=== PATIENT | female | born 1945 | race Caucasian/White ===

== ENCOUNTER 2016-11-09 15:02 | Emergency (ER) | payer BC, MEDICARE, OTHER ==
[~2016-11-09] VITALS: Ht 157.5 cm; Wt 60.0 kg
[2016-11-09 15:05] VITALS: TEMP 36.7; Ht 157.5 cm; Wt 60.0 kg
[2016-11-09 15:32] LABS: BASO % 0.1 %; BASO ABS # 0.01 K/uL (0-0.2); COMPLETE YES; EOS % 0.6 %; HEMATOCRIT 43.6 % (37-47); IG% 0.3 %; LYMPH % 20.9 %; MEAN CELL VOLUME 89.2 fL (80-100); MEAN CORPUSCULAR HEMOGLOBIN 29.9 pg (25-34); MEAN CORPUSCULAR HGB CONC 33.5 g/dl (32-36); MEAN PLATELET VOLUME 10.4 fL (7.4-10.4); MONO % 6.6 %; NEUT % 71.5 %; PLATELET COUNT 263 K/uL (130-400); RED BLOOD COUNT 4.89 M/uL (4.2-5.4); WHITE BLOOD COUNT 7.16 K/uL (4.8-10.8)
--- NOTE | 2016-11-09 15:33 | EMERGENCY ROOM VISIT NOTE ---
History Report prepared by Desmond: Gregorio Anand Under the Supervision of: Dr. Wen Muñiz M.D. First contact with patient: 15:19 Chief Complaint: URINARY SYMPTOMS Stated Complaint: UTI Nursing Triage Summary: triage note:pt reports hurting in the groin/vaginal area c/o pain in mouth. states she is haulcinating symptoms for three weeks History of Present Illness The patient is a 71 year old female who presents to the Emergency Room with complaints of persistent urinary tract infection symptoms that started a few weeks ago. She was recently hospitalized in a [facility] for 9 days for this. The patient was experiencing vaginal itching, weakness, and burning urination. The burning urination has since been resolved. Per the patient's , the patient was first put on Bactrim, but the patient started to have visual hallucinations. The patient says she would see a person and also see a rat coming to and from her bedroom. She was then put on a second antibiotic ( Cipro), but it has not been helping. The patient still has these hallucinations. She is not diabetic. The patient's daily medications include Fentanyl, Neurontin, and Oxycodone. She has chronic back pain and knee problems. Source of History: patient, spouse/significant other Onset: A few weeks ago Position: other (global - UTI symptoms) Timing: other (persistent) Associated Symptoms: + weakness Note: Associated symptoms: Vaginal itching, hallucinations. Review of Systems See HPI for pertinent positives & negatives. A total of 10 systems reviewed and were otherwise negative. Past Medical & Surgical Medical Problems: (1) Back pain (2) HTN (hypertension) Surgical Problems: (1) History of knee replacement Family History Hypertension Social History Smoking Status: Never Smoker Alcohol Use: none Marital Status: Housing Status: lives with family Occupation Status: employed Current/Historical Medications Scheduled Alprazolam (Xanax), 1 MG PO QID Calcium Carbonate-Vitamin D W/ (Caltrate 600 Plus), 1 TAB PO BID Fentanyl (Fentanyl), 100 MCG TOP [id number] Ferrous Sulfate (Ferrous Sulfate), 1 TAB PO TID Gabapentin (Neurontin), 600 MG PO TID Krill Oil (Krill Oil), 1 CAP PO DAILY Multivitamins/Minerals (Mvi With Minerals), 1 TAB PO DAILY Simvastatin (Zocor), 40 MG PO QPM Venlafaxine Hcl (Effexor Xr), 1 CAP PO TID Verapamil Sust Rel (Calan Sr Ext Rel), 240 MG PO DAILY Scheduled PRN Docusate Sodium (Colace), 1 CAP PO TID PRN for Constipation Oxycodone/Acetaminophen 5MG/325MG (Percocet 5MG/325MG), 1 TABLET PO QID PRN for Pain Allergies Coded Allergies: Penicillins (Verified Allergy, Intermediate, 11/20/09) RASH Ampicillin (Verified Allergy, Unknown, RASH, 11/09/16) Physical Exam Vital Signs Date Time Temp Pulse Resp B/P Pulse Ox O2 Delivery O2 Flow Rate FiO2 11/09/16 18:35 66 18 133/63 93 Room Air 11/09/16 16:59 67 16 124/82 94 Room Air 11/09/16 15:05 36.7 77 18 119/86 96 Room Air Physical Exam CONSTITUTIONAL: No acute distress. HEENT: No icterus, moist mucous membranes NECK: No meningismus, trachea is midline. CARDIOVASCULAR: Regular rate, normal perfusion RESPIRATORY: Unlabored breathing. Clear to auscultation. GASTROINTESTINAL: Non-tender GENITOURINARY: No flank tenderness MUSCULOSKELETAL: Full range of motion NEUROLOGIC: No acute gross focal deficits. PSYCHIATRIC: Normal affect SKIN: Normal for ethnicity. Medical Decision & Procedures ER Provider Diagnostic Interpretation: CT results as stated below per my review and radiologist interpretation. CT OF THE HEAD WITH AND WITHOUT CONTRAST CT DOSE: 1572.52 mGy.cm CLINICAL HISTORY: Visual hallucinations. TECHNIQUE: Axial images of the head were obtained before and after intravenous administration of 90 cc of Optiray 320 IV. COMPARISON STUDY: None. FINDINGS: No acute intracranial hemorrhage, midline shift or mass effect is present. Ventricular system is unremarkable for age. The basilar cisterns are patent. There are no extra-axial collections. White matter hypodensities suggest small vessel disease. There are no findings to suggest acute dural sinus thrombosis or acute territorial infarct. No intracranial mass or pathologic enhancement is present. There are no significant calvarial abnormalities. Visualized portions of the sinuses and mastoid air cells are clear. IMPRESSION: 1. No acute intracranial findings. 2. No intracranial masses or pathologic enhancement. Electronically signed by: Micheal Zazueta M.D. 11/09/2016 4:56 PM Dictated Date/Time: 11/09/2016 4:51 PM Laboratory Results 11/09/16 15:23 Red Blood Count 4.89, Mean Corpuscular Volume 89.2, Mean Corpuscular Hemoglobin 29.9, Mean Corpuscular Hemoglobin Concent 33.5, Mean Platelet Volume 10.4, Neutrophils (%) (Auto) 71.5, Lymphocytes (%) (Auto) 20.9, Monocytes (%) (Auto) 6.6, Eosinophils (%) (Auto) 0.6, Basophils (%) (Auto) 0.1, Neutrophils # (Auto) 5.12, Lymphocytes # (Auto) 1.50, Monocytes # (Auto) 0.47, Eosinophils # (Auto) 0.04, Basophils # (Auto) 0.01 11/09/16 15:23 Test 11/09/16 15:23 11/09/16 16:23 White Blood Count 7.16 K/uL (4.8-10.8) Red Blood Count 4.89 M/uL (4.2-5.4) Hemoglobin 14.6 g/dL (12.0-16.0) Hematocrit 43.6 % (37-47) Mean Corpuscular Volume 89.2 fL (80-100) Mean Corpuscular Hemoglobin 29.9 pg (25-34) Mean Corpuscular Hemoglobin Concent 33.5 g/dl (32-36) Platelet Count 263 K/uL (130-400) Mean Platelet Volume 10.4 fL (7.4-10.4) Neutrophils (%) (Auto) 71.5 % Lymphocytes (%) (Auto) 20.9 % Monocytes (%) (Auto) 6.6 % Eosinophils (%) (Auto) 0.6 % Basophils (%) (Auto) 0.1 % Neutrophils # (Auto) 5.12 K/uL (1.4-6.5) Lymphocytes # (Auto) 1.50 K/uL (1.2-3.4) Monocytes # (Auto) 0.47 K/uL (0.11-0.59) Eosinophils # (Auto) 0.04 K/uL (0-0.5) Basophils # (Auto) 0.01 K/uL (0-0.2) RDW Standard Deviation 41.7 fL (36.4-46.3) RDW Coefficient of Variation 12.8 % (11.5-14.5) Immature Granulocyte % (Auto) 0.3 % Immature Granulocyte # (Auto) 0.02 K/uL (0.00-0.02) Anion Gap 10.0 mmol/L (3-11) Est Creatinine Clear Calc Drug Dose 52.2 ml/min Estimated GFR () 90.2 Estimated GFR (Non- 77.8 BUN/Creatinine Ratio 23.3 (10-20) Calcium Level 8.8 mg/dl (8.5-10.1) Urine Color DK YELLOW Urine Appearance CLEAR (CLEAR) Urine pH 7.5 (4.5-7.5) Urine Specific [place] 1.024 (1.000-1.030) Urine Protein NEG (NEG) Urine Glucose (UA) NEG (NEG) Urine Ketones 1+ (NEG) Urine Occult Blood NEG (NEG) Urine Nitrite NEG (NEG) Urine Bilirubin NEG (NEG) Urine Urobilinogen NEG (NEG) Urine Leukocyte Esterase TRACE (NEG) Urine WBC (Auto) 1-5 /hpf (0-5) Urine RBC (Auto) 0-4 /hpf (0-4) Urine Hyaline Casts (Auto) 1-5 /lpf (0-5) Urine Epithelial Cells (Auto) 20-30 /lpf (0-5) Urine Bacteria (Auto) NEG (NEG) Urine Opiates Screen NEG (NEG) Urine Methadone, Qualitative NEG (NEG) Urine Barbiturates NEG (NEG) Urine Phencyclidine (PCP) Level NEG (NEG) Ur Amphetamine/Methamphetamine NEG (NEG) MDMA (Ecstasy) Screen NEG (NEG) Urine Benzodiazepines Screen POS (NEG) Urine Cocaine Metabolite NEG (NEG) Urine Marijuana (THC) NEG (NEG) Labs reviewed by ED physician. ED Course 1521: Past medical records reviewed. The patient was evaluated in room C3. A complete history and physical examination was performed. 1840: I reevaluated the patient and she is resting comfortably. The patient verbally expressed agreement and understanding of the treatment plan. The patient will be discharged. Medical Decision Differential diagnoses include: UTI, intracranial abnormality, lesion. 71-year-old presents with her for evaluation generalized worsening weakness and a report of a visual hallucinations seeing a man that does not exist. She is alert oriented and appropriate without neurologic complaints at this time. She states she's been treated for multiple UTIs in the past several weeks although her urine sample to date on appeared to show infection. CT of her head including IV contrast was negative for pathology. Patient's primary care office was closed in a could not arrange follow-up. Patient and in agreement with discharge at this time. He declined case management facilitation of outpatient appointment. They'll follow up on their own. Impression Primary Impression: Weakness Scribe Attestation The scribe's documentation has been prepared under my direction and personally reviewed by me in its entirety. I confirm that the note above accurately reflects all work, treatment, procedures, and medical decision making performed by me. Departure Information Dispostion Home / Self-Care Referrals Lesvia Toure M.D. (PCP) Forms HOME CARE DOCUMENTATION FORM, IMPORTANT VISIT INFORMATION Patient Instructions My [facility]
[2016-11-09] MEDS ORDERED: OPTIRAY 320 IV PRN (15:45)
[2016-11-09 15:51] LABS: BUN/CREATININE RATIO 23.3 (10-20); CALCIUM 8.8 mg/dl (8.5-10.1); CREATININE 0.76 mg/dl (0.60-1.20); POTASSIUM 4.1 mmol/L (3.5-5.1)
[2016-11-09] MEDS ORDERED: VENL75CA PO (16:19)
--- NOTE | 2016-11-09 16:58 | DIAGNOSTIC IMAGING REPORT ---
CT OF THE HEAD WITH AND WITHOUT CONTRAST CT DOSE: 1572.52 mGy.cm CLINICAL HISTORY: Visual hallucinations. TECHNIQUE: Axial images of the head were obtained before and after intravenous administration of 90 cc of Optiray 320 IV. COMPARISON STUDY: None. FINDINGS: No acute intracranial hemorrhage, midline shift or mass effect is present. Ventricular system is unremarkable for age. The basilar cisterns are patent. There are no extra-axial collections. White matter hypodensities suggest small vessel disease. There are no findings to suggest acute dural sinus thrombosis or acute territorial infarct. No intracranial mass or pathologic enhancement is present. There are no significant calvarial abnormalities. Visualized portions of the sinuses and mastoid air cells are clear. IMPRESSION: 1. No acute intracranial findings. 2. No intracranial masses or pathologic enhancement. Electronically signed by: Micheal Zazueta M.D. 11/09/2016 4:56 PM Dictated Date/Time: 11/09/2016 4:51 PM
[2016-11-09 17:00] LABS: URINE APPEARANCE CLEAR (CLEAR); URINE BILIRUBIN NEG (NEG); URINE COLOR DK YELLOW; URINE EPITHELIAL CELL AUTO 20-30 /lpf (0-5); URINE NITRITE NEG (NEG); URINE PH 7.5 (4.5-7.5); URINE SPECIFIC GRAVITY 1.024 (1.000-1.030); UROBILINOGEN NEG (NEG); ZZUR CULT IF INDIC CLEAN CATCH NO
[2016-11-09 17:14] LABS: MANUAL MICROSCOPIC REQUIRED? NO; REVIEW REQ? NO
[2016-11-09 17:46] LABS: BENZODIAZEPINE, URINE POS (NEG); COCAINE,URINE NEG (NEG); PHENCYCLIDINE, URINE NEG (NEG)
[2016-11-09 18:35] VITALS: BP 133/63; PULSE 66; O2SAT 93
[2016-11-14 13:21] LABS: HYDROXYETHYLFLURAZEPAM CONF NEGATIVE NG/ML (CUTOFF=50); HYDROXYMIDAZOLAM NEGATIVE NG/ML (CUTOFF=50); HYDROXYTRIAZOLAM CONF NEGATIVE NG/ML (CUTOFF=50); TEMAZEPAM CONF NEGATIVE NG/ML (CUTOFF=50)
== END 2016-11-09 18:45 | disposition home or self-care (01) ==
LOC: C.EDB 15:04 → C.EDC 18:45
DX: R53.1 Weakness (principal); G89.29 Other chronic pain; M54.9 Dorsalgia, unspecified; I10 Essential (primary) hypertension; Z96.659 Presence of unspecified artificial knee joint; Z82.49 Family history of ischemic heart disease and other diseases of the circulatory system; Z79.899 Other long term (current) drug therapy

== ENCOUNTER 2016-11-17 13:05 | Emergency (ER) | payer MEDICARE ==
[~2016-11-17] VITALS: Ht 157.5 cm; Wt 45.6 kg
[~2016-11-17 13:05] MED LIST: VENL75CA PO
[2016-11-17 13:10] VITALS: TEMP 37.1; Ht 157.5 cm; Wt 45.6 kg
[2016-11-17] MEDS ORDERED: SODIUM CHLORIDE 0.9% 1000ML 1,000 ML IV STA (13:41)
[2016-11-17] MEDS ORDERED: NYSTATIN SUSP 500,000 U/5 ML UDC PO STA (14:01)
[2016-11-17] MEDS ORDERED: CIPR1TAB11 PO (14:04)
--- NOTE | 2016-11-17 14:06 | DIAGNOSTIC IMAGING REPORT ---
SINGLE VIEW CHEST CLINICAL HISTORY: Fever. Sepsis. FINDINGS: An AP, portable, upright chest radiograph is obtained. No prior studies are available for comparison at the time of dictation. The heart is top normal for projection. There is consolidation and atelectasis seen at the right lung base. Central lucency may represent aerated lung less likely cavitation. Small pleural effusions are suspected. The right upper lobe and the left lung appear clear. No pneumothorax is seen. The skeletal structures are osteopenic. There is an age indeterminant right ninth rib fracture. IMPRESSION: 1. There is consolidation and significant atelectasis present at the right lung base. This may represent pneumonia but the appearance is atypical. Consider chest CT for further assessment. 2. Small pleural effusions are identified. 3. Age indeterminant right ninth rib fracture. This may be chronic. Choroid for point tenderness at this level. Electronically signed by: Bret Palmer M.D. 11/17/2016 2:05 PM Dictated Date/Time: 11/17/2016 2:02 PM
[2016-11-17 14:37] LABS: BASO % 0.1 %; BASO ABS # 0.01 K/uL (0-0.2); COMPLETE YES; EOS % 0.4 %; HEMATOCRIT 43.9 % (37-47); IG% 0.2 %; LYMPH % 17.1 %; LYMPH ABS # 1.63 K/uL (1.2-3.4); MEAN CELL VOLUME 90.3 fL (80-100); MEAN CORPUSCULAR HEMOGLOBIN 30.7 pg (25-34); MEAN CORPUSCULAR HGB CONC 33.9 g/dl (32-36); MEAN PLATELET VOLUME 10.8 fL (7.4-10.4); MONO % 7.6 %; NEUT % 74.6 %; PLATELET COUNT 219 K/uL (130-400); RED BLOOD COUNT 4.86 M/uL (4.2-5.4); WHITE BLOOD COUNT 9.51 K/uL (4.8-10.8)
[2016-11-17 14:59] LABS: BUN/CREATININE RATIO 40.7 (10-20); CALCIUM 8.6 mg/dl (8.5-10.1); CREATININE 0.57 mg/dl (0.60-1.20); POTASSIUM 3.5 mmol/L (3.5-5.1)
[2016-11-17 15:00] LABS: URINE APPEARANCE CLEAR (CLEAR); URINE BILIRUBIN NEG (NEG); URINE COLOR YELLOW; URINE NITRITE NEG (NEG); URINE SPECIFIC GRAVITY 1.018 (1.000-1.030); UROBILINOGEN NEG (NEG); ZZURINE CULT IF INDIC CATH NO
[2016-11-17 15:05] LABS: CKMB/CK RATIO 4.9 (0-3.0)
[2016-11-17 15:05] LABS: MANUAL MICROSCOPIC REQUIRED? NO; REVIEW REQ? NO
--- NOTE | 2016-11-17 15:33 | DIAGNOSTIC IMAGING REPORT ---
CT SCAN OF THE CHEST WITHOUT IV CONTRAST CLINICAL HISTORY: Abnormal chest x-ray. Right lower lobe consolidation. COMPARISON STUDY: Chest radiograph dated 11/17/16. TECHNIQUE: CT scan of the thorax was performed from the thoracic inlet to the upper abdomen. Images are reviewed in the axial, sagittal, and coronal planes. IV contrast was not administered for this examination as per the referring clinician. CT DOSE: 197.13 mGycm FINDINGS: Thyroid: Imaged portions of the thyroid gland are normal in size and attenuation. Thoracic aorta: There is mild atherosclerotic calcification of the thoracic aorta, which is normal in caliber and demonstrates standard 3-vessel arch anatomy. Heart: The heart is mildly enlarged and without pericardial effusion. There are coronary artery calcifications. The pulmonary trunk is dilated, measuring up to 4.4 cm in diameter. This suggests pulmonary artery hypertension. Lungs and pleural spaces: There is a large hiatal hernia, which contains the majority of the stomach as well as a portion of the right colon. This causes near complete atelectasis of the right lower lobe. There is no airspace consolidation typical for pneumonia. Trace pleural effusions are identified. The trachea and central airways are clear. Mediastinum: There is no mediastinal lymphadenopathy. Alesia: Not well assessed without IV contrast. Axillae: There is no axillary lymphadenopathy. Upper abdomen: As noted above, a large hiatal hernia contains the majority of the stomach and a large segment of the right colon. A 1.5 cm cyst is noted in the left lobe of the liver. Cortical scarring is present in the interpolar left kidney. There is glandular atrophy of the visualized pancreas. Skeletal structures: The skeletal structures are osteopenic. Degenerative change and hyperkyphosis are noted in the thoracic spine. No lytic or blastic bony lesions are seen. Postoperative change is suggested in the spinous processes of the lower thoracic spine. There is a healed right anterior ninth rib fracture. IMPRESSION: 1. There is a large hiatal hernia which contains the majority of the stomach as well as a large segment of the right colon. This causes near complete atelectasis of the right lower lobe and this corresponds to the abnormality seen by chest x-ray. 2. There is no airspace consolidation typical for pneumonia. Trace pleural effusions are identified. 3. Cardiomegaly with evidence of pulmonary artery hypertension. 4. Additional findings as above. Electronically signed by: Bret Palmer M.D. 11/17/2016 3:32 PM Dictated Date/Time: 11/17/2016 3:26 PM
[2016-11-17] MEDS ORDERED: NYSS/ PO (16:06)
--- NOTE | 2016-11-17 16:07 | EMERGENCY ROOM VISIT NOTE ---
History Report prepared by Desmond: Mitch Marshall Under the Supervision of: Dr. Allen Vogt D.O. First contact with patient: 13:34 Chief Complaint: URINARY SYMPTOMS Stated Complaint: AMS/ FREQUENT URINATION Nursing Triage Summary: Patient arrived via EMS c/o mouth pain in lips all inside her mouth, also c/o burning in pelvic area. Hx UTI 2 weeks ago, has been taking Cipro, one pill left. Pt states she's also been having to buy pads because she's been incontinent and usually she is not incontinent. EMS reports patient speaks of living in [place] x 50 years and later in conversation does not know where [place] is located. Pt lives at home with in [place] per EMS History of Present Illness The patient is a 71 year old female who presents to the Emergency Room with complaints of persistent mouth pain beginning earlier today. She notes that her mouth is "sticking together", but that it is not necessarily dry. She also complains of burning in her pelvic area. The patient states she was here 10 days ago and diagnosed with a UTI. She has been taking Cipro and has 1 day left , but reports that it is not helping her symptoms. She admits to having diaphoresis and chills. The patient notes she has an appointment with urology in about 1 week. She does not have a catheter. She denies having any recent surgeries. Source of History: patient Onset: this morning Position: other (mouth; pelvis) Quality: burning, other (pain) Timing: other (persistent) Associated Symptoms: + chills, + diaphoresis Review of Systems See HPI for pertinent positives & negatives. A total of 10 systems reviewed and were otherwise negative. Past Medical & Surgical Medical Problems: (1) Back pain (2) HTN (hypertension) Surgical Problems: (1) History of knee replacement Family History Hypertension Social History Smoking Status: Never Smoker Alcohol Use: none Marital Status: Housing Status: lives with family Occupation Status: employed Current/Historical Medications Scheduled Alprazolam (Xanax), 1 MG PO QID Calcium Carbonate-Vitamin D W/ (Caltrate 600 Plus), 1 TAB PO BID Ciprofloxacin Tab (Cipro), Unknown Dose PO BID Fentanyl (Fentanyl), 100 MCG TOP [id number] Ferrous Sulfate (Ferrous Sulfate), 1 TAB PO TID Gabapentin (Neurontin), 600 MG PO TID Krill Oil (Krill Oil), 1 CAP PO DAILY Multivitamins/Minerals (Mvi With Minerals), 1 TAB PO DAILY Nystatin (Nystatin Suspension), 5 ML PO QID Simvastatin (Zocor), 40 MG PO QPM Venlafaxine Hcl (Effexor Xr), 150 MG PO TID Verapamil Sust Rel (Calan Sr Ext Rel), 240 MG PO DAILY Scheduled PRN Docusate Sodium (Colace), 1 CAP PO TID PRN for Constipation Oxycodone/Acetaminophen 5MG/325MG (Percocet 5MG/325MG), 1 TABLET PO QID PRN for Pain Allergies Coded Allergies: Penicillins (Verified Allergy, Intermediate, 11/17/16) RASH Ampicillin (Verified Allergy, Unknown, RASH, 11/17/16) Physical Exam Vital Signs Date Time Temp Pulse Resp B/P Pulse Ox O2 Delivery O2 Flow Rate FiO2 11/17/16 14:37 75 127/80 96 Room Air 11/17/16 14:20 74 11/17/16 14:10 75 19 124/80 91 Room Air 11/17/16 13:10 37.1 78 20 114/82 95 Room Air Physical Exam CONSTITUTIONAL/VITAL SIGNS: Reviewed / noted above. GENERAL: Non-toxic in appearance. INTEGUMENTARY: Warm, dry, and [place]. HEAD: Normocephalic. EYES: without scleral icterus or trauma. ENT/OROPHARYNX: clear and moist. LYMPHADENOPATHY/NECK: Is supple without lymphadenopathy or meningismus. RESPIRATORY: Lungs clear and equal. CARDIOVASCULAR: Regular rate and rhythm. GI/ABDOMEN: Soft and nontender. No organomegaly or pulsatile mass. No rebound or guarding. Normal bowel sounds. EXTREMITIES: Warm and well perfused. BACK: No CVA tenderness. NEUROLOGICAL: Intact without focal deficits. PSYCHIATRIC: normal affect. MUSCULOSKELETAL: Normally developed with good muscle tone. Medical Decision & Procedures ER Provider Diagnostic Interpretation: X ray results and stated below per my interpretation and radiologist interpretation. Other radiology results and stated below per my review and radiologist interpretation: SINGLE VIEW CHEST FINDINGS: An AP, portable, upright chest radiograph is obtained. No prior studies are available for comparison at the time of dictation. The heart is top normal for projection. There is consolidation and atelectasis seen at the right lung base. Central lucency may represent aerated lung less likely cavitation. Small pleural effusions are suspected. The right upper lobe and the left lung appear clear. No pneumothorax is seen. The skeletal structures are osteopenic. There is an age indeterminant right ninth rib fracture. IMPRESSION: 1. There is consolidation and significant atelectasis present at the right lung base. This may represent pneumonia but the appearance is atypical. Consider chest CT for further assessment. 2. Small pleural effusions are identified. 3. Age indeterminant right ninth rib fracture. This may be chronic. Choroid for point tenderness at this level. Electronically signed by: Bret Palmer M.D. 11/17/2016 2:05 PM Dictated Date/Time: 11/17/2016 2:[address] SCAN OF THE CHEST WITHOUT IV CONTRAST FINDINGS: Thyroid: Imaged portions of the thyroid gland are normal in size and attenuation. Thoracic aorta: There is mild atherosclerotic calcification of the thoracic aorta, which is normal in caliber and demonstrates standard 3-vessel arch anatomy. Heart: The heart is mildly enlarged and without pericardial effusion. There are coronary artery calcifications. The pulmonary trunk is dilated, measuring up to 4.4 cm in diameter. This suggests pulmonary artery hypertension. Lungs and pleural spaces: There is a large hiatal hernia, which contains the majority of the stomach as well as a portion of the right colon. This causes near complete atelectasis of the right lower lobe. There is no airspace consolidation typical for pneumonia. Trace pleural effusions are identified. The trachea and central airways are clear. Mediastinum: There is no mediastinal lymphadenopathy. Alesia: Not well assessed without IV contrast. Axillae: There is no axillary lymphadenopathy. Upper abdomen: As noted above, a large hiatal hernia contains the majority of the stomach and a large segment of the right colon. A 1.5 cm cyst is noted in the left lobe of the liver. Cortical scarring is present in the interpolar left kidney. There is glandular atrophy of the visualized pancreas. Skeletal structures: The skeletal structures are osteopenic. Degenerative change and hyperkyphosis are noted in the thoracic spine. No lytic or blastic bony lesions are seen. Postoperative change is suggested in the spinous processes of the lower thoracic spine. There is a healed right anterior ninth rib fracture. IMPRESSION: 1. There is a large hiatal hernia which contains the majority of the stomach as well as a large segment of the right colon. This causes near complete atelectasis of the right lower lobe and this corresponds to the abnormality seen by chest x-ray. 2. There is no airspace consolidation typical for pneumonia. Trace pleural effusions are identified. 3. Cardiomegaly with evidence of pulmonary artery hypertension. 4. Additional findings as above. Electronically signed by: Bret Palmer M.D. 11/17/2016 3:32 PM Dictated Date/Time: 11/17/2016 3:26 PM Laboratory Results 11/17/16 14:05 Red Blood Count 4.86, Mean Corpuscular Volume 90.3, Mean Corpuscular Hemoglobin 30.7, Mean Corpuscular Hemoglobin Concent 33.9, Mean Platelet Volume 10.8, Neutrophils (%) (Auto) 74.6, Lymphocytes (%) (Auto) 17.1, Monocytes (%) (Auto) 7.6, Eosinophils (%) (Auto) 0.4, Basophils (%) (Auto) 0.1, Neutrophils # (Auto) 7.09, Lymphocytes # (Auto) 1.63, Monocytes # (Auto) 0.72, Eosinophils # (Auto) 0.04, Basophils # (Auto) 0.01 11/17/16 14:05 Test 11/17/16 14:05 11/17/16 14:30 White Blood Count 9.51 K/uL (4.8-10.8) Red Blood Count 4.86 M/uL (4.2-5.4) Hemoglobin 14.9 g/dL (12.0-16.0) Hematocrit 43.9 % (37-47) Mean Corpuscular Volume 90.3 fL (80-100) Mean Corpuscular Hemoglobin 30.7 pg (25-34) Mean Corpuscular Hemoglobin Concent 33.9 g/dl (32-36) Platelet Count 219 K/uL (130-400) Mean Platelet Volume 10.8 fL (7.4-10.4) Neutrophils (%) (Auto) 74.6 % Lymphocytes (%) (Auto) 17.1 % Monocytes (%) (Auto) 7.6 % Eosinophils (%) (Auto) 0.4 % Basophils (%) (Auto) 0.1 % Neutrophils # (Auto) 7.09 K/uL (1.4-6.5) Lymphocytes # (Auto) 1.63 K/uL (1.2-3.4) Monocytes # (Auto) 0.72 K/uL (0.11-0.59) Eosinophils # (Auto) 0.04 K/uL (0-0.5) Basophils # (Auto) 0.01 K/uL (0-0.2) RDW Standard Deviation 42.5 fL (36.4-46.3) RDW Coefficient of Variation 12.9 % (11.5-14.5) Immature Granulocyte % (Auto) 0.2 % Immature Granulocyte # (Auto) 0.02 K/uL (0.00-0.02) Anion Gap 7.0 mmol/L (3-11) Est Creatinine Clear Calc Drug Dose 63.3 ml/min Estimated GFR () 106.6 Estimated GFR (Non- 92.0 BUN/Creatinine Ratio 40.7 (10-20) Calcium Level 8.6 mg/dl (8.5-10.1) Total Bilirubin 0.4 mg/dl (0.2-1) Direct Bilirubin 0.1 mg/dl (0-0.2) Aspartate Amino Transf (AST/SGOT) 13 U/L (15-37) Alanine Aminotransferase (ALT/SGPT) 17 U/L (12-78) Alkaline Phosphatase 61 U/L (45-117) Total Creatine Kinase 35 U/L (26-192) Creatine Kinase MB 1.7 ng/ml (0.5-3.6) Creatine Kinase MB Ratio 4.9 (0-3.0) Troponin I 0.045 ng/ml (0-0.045) Total Protein 6.5 gm/dl (6.4-8.2) Albumin 3.3 gm/dl (3.4-5.0) Lipase 80 U/L (73-393) Urine Color YELLOW Urine Appearance CLEAR (CLEAR) Urine pH 8.0 (4.5-7.5) Urine Specific [place] 1.018 (1.000-1.030) Urine Protein NEG (NEG) Urine Glucose (UA) NEG (NEG) Urine Ketones NEG (NEG) Urine Occult Blood NEG (NEG) Urine Nitrite NEG (NEG) Urine Bilirubin NEG (NEG) Urine Urobilinogen NEG (NEG) Urine Leukocyte Esterase NEG (NEG) Urine WBC (Auto) 0 /hpf (0-5) Urine RBC (Auto) 0-4 /hpf (0-4) Urine Hyaline Casts (Auto) 1-5 /lpf (0-5) Urine Epithelial Cells (Auto) 10-20 /lpf (0-5) Urine Bacteria (Auto) NEG (NEG) Laboratory results as stated above per my review. Medications Administered Medications (Trade) Dose Ordered Sig/Nathan Route Start Time Stop Time Status Last Admin Dose Admin Sodium Chloride (Nss 1000ml) 1,000 ml @ 999 mls/hr Q1H1M STAT IV 11/17/16 13:41 11/17/16 14:41 DC 11/17/16 14:19 999 MLS/HR Nystatin (Mycostatin Susp) 5 ml NOW STAT PO 11/17/16 14:01 11/17/16 14:03 DC 11/17/16 14:19 5 ML ED Course 1335: Previous medical records were reviewed. The patient was evaluated in room C2B. A complete history and physical examination was performed. 1341: Ordered NSS 1,000 ml @ 999 mls/hr IV. 1401: Ordered Nystatin 5 ml PO. 1610: On reevaluation, the patient is hemodynamically stable. I discussed the results and findings with the patient. She verbalized agreement of the treatment plan. The patient was discharged home. Medical Decision Differential includes acute coronary syndrome, myocardial infarction, CVA, TIA, anemia, infection, pneumonia, UTI, pyelonephritis, poor nutrition, dehydration, electrolyte disturbance,hypoglycemia. This is a 71-year-old female who presents to the ED with a chief complaint of mouth discomfort as well as some burning with urination. The patient was here about 9 days ago and put on Cipro for her burning with urination. Her urine did not specifically show infection and no culture was done. The patient since being started on Cipro and developed some soreness in her mouth and a dryness in her mouth. Her physical exam reveals some erythema in the mouth as well as some brush. Lungs are clear. Abdomen soft and nontender. Gross vaginal exam did not reveal any obvious abnormalities. CBC is normal. Complete metabolic panel was unremarkable. Lipase is negative. Urine did not show infection. A chest x-ray showed an abnormality in the right chest wall. The CT scan of the chest revealed a large hiatal hernia on the right. The patient was given nystatin orally for thrush. She was felt to be stable for discharge. She does have a follow-up appointment with urology next week. She was also advised to follow-up with gynecology. Impression Primary Impression: Jewel Wooibe Attestation The scribe's documentation has been prepared under my direction and personally reviewed by me in its entirety. I confirm that the note above accurately reflects all work, treatment, procedures, and medical decision making performed by me. Departure Information Dispostion Home / Self-Care Prescriptions Nystatin (Nystatin Suspension) 1 Ml Susp 5 ML PO QID for 10 Days, #200 ML Prov: Allen Vogt D.O. 11/17/16 Referrals Lesvai Toure M.D. (PCP) Patient Instructions [facility], Jewel Oral Additional Instructions A prescription for nystatin was sent to your pharmacy in [place]. Follow-up with urology as scheduled. 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 Call for an appointment.
[2016-11-17 17:07] VITALS: BP 118/52; PULSE 70; O2SAT 91
== END 2016-11-17 17:08 | disposition home or self-care (01) ==
LOC: EDBD 13:05 → C.EDC 13:07
DX: B37.0 Candidal stomatitis (principal); N39.0 Urinary tract infection, site not specified; I10 Essential (primary) hypertension; Z79.899 Other long term (current) drug therapy; Z79.2 Long term (current) use of antibiotics

== ENCOUNTER 2016-12-06 10:49 | Inpatient (IN) | payer MEDICARE, OTHER ==
[~2016-12-06] VITALS: Ht 162.6 cm; Wt 63.4 kg
[~2016-12-06 10:49] MED LIST changes: +CIPR1TAB11 PO; +NYSS/ PO; -VENL75CA PO
[2016-12-06] MEDS ORDERED: NITR-5 PO (12:34)
[2016-12-06 13:14] LABS: BASO % 0.1 %; BASO ABS # 0.01 K/uL (0-0.2); COMPLETE YES; HEMATOCRIT 38.7 % (37-47); IG% 0.3 %; LYMPH % 9.1 %; LYMPH ABS # 1.23 K/uL (1.2-3.4); MEAN CELL VOLUME 88.8 fL (80-100); MEAN CORPUSCULAR HEMOGLOBIN 30.3 pg (25-34); MEAN CORPUSCULAR HGB CONC 34.1 g/dl (32-36); MEAN PLATELET VOLUME 10.8 fL (7.4-10.4); MONO % 8.1 %; NEUT % 82.4 %; PLATELET COUNT 230 K/uL (130-400); RED BLOOD COUNT 4.36 M/uL (4.2-5.4); WHITE BLOOD COUNT 13.48 K/uL (4.8-10.8)
--- NOTE | 2016-12-06 13:25 | DIAGNOSTIC IMAGING REPORT ---
CHEST ONE VIEW PORTABLE CLINICAL HISTORY: Sepsis dyspnea COMPARISON STUDY: 11/17/2016 FINDINGS: The bones soft tissues and hemidiaphragms are normal. The cardiomediastinal silhouette is normal. The lungs are clear. The pulmonary vasculature is normal. Apparent consolidative changes medial aspect right base unchanged in the prior study. Pain. Patient's prior CT study this relates to a hiatal hernia with a component of interposed stomach and colon. There are no acute infiltrates. IMPRESSION: No acute infiltrates. Increased density medial right base unchanged from the prior study and apparently relating to a complex hiatal hernia . Electronically signed by: Ar Morales M.D. 12/06/2016 1:24 PM Dictated Date/Time: 12/06/2016 1:22 PM
--- NOTE | 2016-12-06 13:28 | DIAGNOSTIC IMAGING REPORT ---
CT HEAD WITHOUT CONTRAST (CT) CLINICAL HISTORY: Acute change in mental status. COMPARISON STUDY: 11/09/2016 TECHNIQUE: Axial CT of the brain is performed from the vertex to the skull base. IV contrast was not administered for this examination. CT DOSE: 614.27 mGy.cm FINDINGS: No intra or extra-axial mass lesions are visualized. There is no CT evidence of acute cortical infarction. There is no evidence of midline shift. There is no acute hemorrhage. No calvarial fractures are visualized. There are patchy white matter hypodensities likely on a small vessel basis. There is a stable right cerebellar lacunar infarct. There is no evidence of pathologic ventricular dilatation. There is no evidence of acute sinusitis IMPRESSION: No acute intracranial findings Electronically signed by: Abhi Grant M.D. 12/06/2016 1:27 PM Dictated Date/Time: 12/06/2016 1:26 PM
[2016-12-06 13:37] LABS: URINE APPEARANCE CLEAR (CLEAR); URINE COLOR DK YELLOW; URINE EPITHELIAL CELL AUTO 20-30 /lpf (0-5); URINE NITRITE NEG (NEG); URINE PH 6.5 (4.5-7.5); URINE SPECIFIC GRAVITY 1.026 (1.000-1.030); UROBILINOGEN NEG (NEG); ZZURINE CULT IF INDIC CATH NO
[2016-12-06 13:40] LABS: MANUAL MICROSCOPIC REQUIRED? NO; REVIEW REQ? NO; URINE BILIRUBIN NEG (NEG)
[2016-12-06 13:42] LABS: CALCIUM 8.9 mg/dl (8.5-10.1); CREATININE 0.55 mg/dl (0.60-1.20); POTASSIUM 2.8 mmol/L (3.5-5.1)
[2016-12-06] MEDS ORDERED: VENL150C PO (13:43)
[2016-12-06 13:45] LABS: INR 1.1 (0.9-1.1); PARTIAL THROMBOPLASTIN RATIO 0.9; PROTHROMBIN TIME (PATIENT) 12.3 SECONDS (9.0-12.0)
[2016-12-06] MEDS ORDERED: POTASSIUM CHLORIDE 10 MEQ / 100ML WTR IV STA (13:50)
--- NOTE | 2016-12-06 15:55 | History and Physical ---
History & Physical Date & Time of Service: Dec 06, 2016 at 15:31 Chief Complaint: Altered Mental Status Primary Care Physician: Lesvia Toure M.D. History of Present Illness Source: patient, family This patient is a 71-year-old white female presents emergency department with her today with complaints of altered mental status. According to the , the patient was having difficulty finishing her sentences for the last 2 days. She is also been very weak over the last 2 weeks (no focal weakness). The patient was diagnosed with a urinary tract infection 2 weeks ago. She is currently on her second round of antibiotics. The does not remember the name of the first antibiotic. She has been on Macrobid and has had a total of 3 doses. Her mental state has continued to decline. History is mainly taken from the . He says that she typically gets like this when she has UTIs. She was treated for urinary tract infection approximately one year ago in [place] with similar symptoms. The patient's denies any falls. He does note that she has felt warm to touch. They have not checked her temperature at home. He denies any other notable symptoms such as cough. She has not been complaining of any headaches or dizziness. The patient's handles her medication. He keeps them locked up in a safe. He denies any recent changes in her medications. He does however note that she was having a difficult time sleeping and probably has only gotten a half hour sleep over the last 36 hours. He gave her an over- the-counter sleep medication last night, which reportedly did not help. He thought the name was sleep aid Past Medical/Surgical History Medical Problems: Chronic back pain Hypertension Anxiety Depression Surgical Problems: (1) History of knee replacement Status: Resolved Family History Hypertension Unobtainable Social History Smoking Status: Never Smoker Marital Status: Housing status: lives with significant other Multi-Drug Resistant Organisms History of MDRO: No Allergies Coded Allergies: Penicillins (Verified Allergy, Intermediate, 11/17/16) RASH Ampicillin (Verified Allergy, Unknown, RASH, 11/17/16) Home Medications Scheduled Alprazolam (Xanax), 1 MG PO QID Calcium Carbonate-Vitamin D W/ (Caltrate 600 Plus), 1 TAB PO BID Fentanyl (Fentanyl), 100 MCG TOP [id number] Ferrous Sulfate (Ferrous Sulfate), 1 TAB PO TID Gabapentin (Neurontin), 600 MG PO TID Krill Oil (Krill Oil), 1 CAP PO DAILY Multivitamins/Minerals (Mvi With Minerals), 1 TAB PO DAILY Simvastatin (Zocor), 40 MG PO QPM Venlafaxine Hcl (Effexor Xr), 150 MG PO TID Verapamil Sust Rel (Calan Sr Ext Rel), 240 MG PO DAILY Scheduled PRN Docusate Sodium (Colace), 1 CAP PO TID PRN for Constipation Oxycodone/Acetaminophen 5MG/325MG (Percocet 5MG/325MG), 1 TABLET PO QID PRN for Pain Miscellaneous Medications Nitrofurantoin Monohyd Macrocr (Macrobid), Unknown Dose PO Review of Systems 10 system review performed and negative unless noted in HPI or below-per Physical Exam Vital Signs Date Time Temp Pulse Resp B/P Pulse Ox O2 Delivery O2 Flow Rate FiO2 12/06/16 15:00 85 16 146/90 95 Room Air 12/06/16 14:05 85 18 150/89 96 Room Air 12/06/16 13:06 84 18 134/70 95 Room Air 12/06/16 12:52 36.8 12/06/16 11:46 83 16 152/92 97 Room Air 12/06/16 10:58 97 Room Air 12/06/16 10:58 37.0 85 14 163/79 97 Room Air General Appearance: + mild distress (mildly agitated) Head: normocephalic Eyes: + pertinent finding (pupils dilated, but equally reactive. Extraocular muscles intact.) Neck: no JVD Respiratory/Chest: lungs clear Cardiovascular: regular rate, rhythm, + systolic murmur Abdomen/GI: normal bowel sounds (bowel sounds present, but hypoactive), soft, + pertinent finding (tenderness to palpation noted over the suprapubic region) Extremities/Musculoskelatal: no calf tenderness, no pedal edema Neurologic/Psych: + pertinent finding (likely tries to follow commands. No focal weakness appreciated. Sensation appears to be intact. Alert and oriented to person only.) Skin: + pertinent finding (skin is warm to touch. Dry.) Diagnostics Laboratory Results Results Past 24 Hours Test 12/06/16 11:00 12/06/16 13:00 12/06/16 13:08 Range/Units Urine Color DK YELLOW Urine Appearance CLEAR CLEAR Urine pH 6.5 4.5-7.5 Urine Specific [place] 1.026 1.000-1.030 Urine Protein 1+ NEG Urine Glucose (UA) NEG NEG Urine Ketones 3+ NEG Urine Occult Blood NEG NEG Urine Nitrite NEG NEG Urine Bilirubin NEG NEG Urine Urobilinogen NEG NEG Urine Leukocyte Esterase TRACE NEG Urine WBC (Auto) 1-5 0-5 /hpf Urine RBC (Auto) 0-4 0-4 /hpf Urine Hyaline Casts (Auto) 1-5 0-5 /lpf Urine Epithelial Cells (Auto) 20-30 0-5 /lpf Urine Bacteria (Auto) NEG NEG White Blood Count 13.48 4.8-10.8 K/uL Red Blood Count 4.36 4.2-5.4 M/uL Hemoglobin 13.2 12.0-16.0 g/dL Hematocrit 38.7 37-47 % Mean Corpuscular Volume 88.8 80-100 fL Mean Corpuscular Hemoglobin 30.3 25-34 pg Mean Corpuscular Hemoglobin Concent 34.1 32-36 g/dl Platelet Count 230 130-400 K/uL Mean Platelet Volume 10.8 7.4-10.4 fL Neutrophils (%) (Auto) 82.4 % Lymphocytes (%) (Auto) 9.1 % Monocytes (%) (Auto) 8.1 % Eosinophils (%) (Auto) 0.0 % Basophils (%) (Auto) 0.1 % Neutrophils # (Auto) 11.11 1.4-6.5 K/uL Lymphocytes # (Auto) 1.23 1.2-3.4 K/uL Monocytes # (Auto) 1.09 0.11-0.59 K/uL Eosinophils # (Auto) 0.00 0-0.5 K/uL Basophils # (Auto) 0.01 0-0.2 K/uL RDW Standard Deviation 44.8 36.4-46.3 fL RDW Coefficient of Variation 13.7 11.5-14.5 % Immature Granulocyte % (Auto) 0.3 % Immature Granulocyte # (Auto) 0.04 0.00-0.02 K/uL Prothrombin Time 12.3 9.0-12.0 SECONDS Prothromb Time International Ratio 1.1 0.9-1.1 Activated Partial Thromboplast Time 23.6 21.0-31.0 SECONDS Partial Thromboplastin Ratio 0.9 Sodium Level 148 136-145 mmol/L Potassium Level 2.8 3.5-5.1 mmol/L Chloride Level 109 98-107 mmol/L Carbon Dioxide Level 28 21-32 mmol/L Anion Gap 11.0 3-11 mmol/L Blood Urea Nitrogen 26 7-18 mg/dl Creatinine 0.55 0.60-1.20 mg/dl Est Creatinine Clear Calc Drug Dose 78.7 ml/min Estimated GFR () 107.8 Estimated GFR (Non- 93.1 BUN/Creatinine Ratio 48.0 10-20 Random Glucose 119 70-99 mg/dl Calcium Level 8.9 8.5-10.1 mg/dl Magnesium Level 2.1 1.8-2.4 mg/dl Total Bilirubin 0.5 0.2-1 mg/dl Aspartate Amino Transf (AST/SGOT) 31 15-37 U/L Alanine Aminotransferase (ALT/SGPT) 19 12-78 U/L Alkaline Phosphatase 55 45-117 U/L Troponin I 0.099 0-0.045 ng/ml Total Protein 6.6 6.4-8.2 gm/dl Albumin 3.3 3.4-5.0 gm/dl Globulin 3.3 2.5-4.0 gm/dl Albumin/Globulin Ratio 1.0 0.9-2 Bedside Lactic Acid Venous 0.90 0.90-1.70 mmol/L Microbiology Results 12/06/16 Blood Culture, Received Pending 12/06/16 Blood Culture, Received Pending 12/06/16 Urine Culture, Received Pending Diagnostic Radiology Patient: Galo BRYAN Address1: [address] [place] [address] Rec: [id number] Address2: Acct ID: [id number] [facility] Zip: [place] [address] Date: 1945 Sex: F Room/Bed: Ref Phy: Lesvia Toure M.D. SC: [facility] Att Phy: Report #: [id number] Ramya Phy: Lesvia Toure M.D. Test: HWO Admit Phy: Jack Strip Assembler: JORGE Interpreting Phy: Abhi Grant M.D. Diagnosis: ALTERED MENTAL STATUS Ordering Phy: Tyrone Macario MD Service Date: 12/06/16 Admit Date: 12/06/16 MNE: PWRSCRIBE CONF: DICTATED BY: Abhi Grant M.D.]] CC: Tyorne Macario M.D. Corcino, Baltizar L., M.D. Endcc: [~ rep ct add3]] CT HEAD WITHOUT CONTRAST (CT) CLINICAL HISTORY: Acute change in mental status. COMPARISON STUDY: 11/09/2016 TECHNIQUE: Axial CT of the brain is performed from the vertex to the skull base. IV contrast was not administered for this examination. CT DOSE: 614.27 mGy.cm FINDINGS: No intra or extra-axial mass lesions are visualized. There is no CT evidence of acute cortical infarction. There is no evidence of midline shift. There is no acute hemorrhage. No calvarial fractures are visualized. There are patchy white matter hypodensities likely on a small vessel basis. There is a stable right cerebellar lacunar infarct. There is no evidence of pathologic ventricular dilatation. There is no evidence of acute sinusitis IMPRESSION: No acute intracranial findings Electronically signed by: Abhi Grant M.D. 12/06/2016 1:27 PM Patient Name: Galo BRYAN Unit Number: [id number] Dictated: 12/06/161321 Transcribed: 12/06/16 1322 MS Printed Date/Time: [~ rep prt dt]/[~ rep prt tm] [~ rep ct labl] - [~ rep ct ivnm] [facility] [place] [place] [address] Dictated: 12/06/161321 Transcribed: 12/06/16 1322 MS Printed Date/Time: [~ rep prt dt]/[~ rep prt tm] [~ rep ct labl] - [~ rep ct ivnm] Patient: Galo BRYAN Address1: [address] [place] [address] Rec: [id number] Address2: Acct ID: [id number] [facility] Zip: [place] [address] Date: 1945 Sex: F Room/Bed: Ref Phy: Lesvia Toure M.D. SC: [facility] Att Phy: Report #: [id number] Ramya Phy: Lesvia Toure M.D. Test: [id number] Admit Phy: Jack Strip Assembler: ROLAN Interpreting Phy: Ar Morales M.D. Diagnosis: ALTERED MENTAL STATUS Ordering Phy: Tyrone Macario MD Service Date: 12/06/16 Admit Date: 12/06/16 MNE: PWRSCRIBE CONF: DICTATED BY: Ar Morales M.D.]] CC: Tyrone Macario M.D. Corcino, Baltizar L., M.D. Endcc: [~ rep ct add3]] CHEST ONE VIEW PORTABLE CLINICAL HISTORY: Sepsis dyspnea COMPARISON STUDY: 11/17/2016 FINDINGS: The bones soft tissues and hemidiaphragms are normal. The cardiomediastinal silhouette is normal. The lungs are clear. The pulmonary vasculature is normal. Apparent consolidative changes medial aspect right base unchanged in the prior study. Pain. Patient's prior CT study this relates to a hiatal hernia with a component of interposed stomach and colon. There are no acute infiltrates. IMPRESSION: No acute infiltrates. Increased density medial right base unchanged from the prior study and apparently relating to a complex hiatal hernia . Electronically signed by: Ar Morales M.D. 12/06/2016 1:24 PM Dictated Date/Time: 12/06/2016 1:22 PM The status of this report is Signed. Draft = Not yet reviewed or approved by Radiologist. Signed = Reviewed and approved by Radiologist. <AttendingPhy></AttendingPhy> <FamilyPhy>Lesvia Toure M.D.</FamilyPhy> < PrimaryPhy>Lesvia Toure M.D.</PrimaryPhy> <UnitNumber>[id number]</ UnitNumber> <VisitNumber>[id number]</VisitNumber> <PatientName>Galo BRYAN< /PatientName> <DateOfBirth>1945</DateOfBirth> <Location>[facility]</Location> < ServiceDate>12/06/16</ServiceDate> <MNE>ESINDI</MNE> <OrderingPhy>Tyrone Macario MD</OrderingPhy> <OrderingPhyMNE>f rep ord dr raymundo</OrderingPhyMNE> < DictatingPhyMNE>f rep dict dr raymundo</DictatingPhyMNE> <CCListMNE>f rep ct mne</ CCListMNE> <AdmittingPhyMNE>f pt admit dr raymundo</AdmittingPhyMNE> <AttendingPhyMNE >f pt attend dr raymunod</AttendingPhyMNE> <ConsultingPhyMNE>f pt consult dr raymundo</ConsultingPhyMNE> <FamilyPhyMNE>f pt fam dr raymundo</FamilyPhyMNE> <OtherPhyMNE>f pt other dr raymundo</OtherPhyMNE> < PrimaryPhyMNE>f pt prim care dr raymundo</PrimaryPhyMNE> <ReferringPhyMNE>f pt referring dr raymundo</ReferringPhyMNE> EKG Normal sinus rhythm Rate 86 bpm T-wave inversions noted in V3 through V6 No prior for comparison Impression Assessment and Plan 71-year-old female presents emergency department with altered mental status, currently being treated for urinary tract infection, not eating or drinking at home Metabolic encephalopathy-would think more secondary to dehydration (not eating or drinking at home) vs UTI -admit to telemetry -blood/urine cx -NS + 20 mEq KCl @ 80 cc/hr -Repeat PRP in am -hold off on ABX for now Mild elevation in Troponin-some EKG changes noted. None for comparison. Low suspicion of ACS -monitor on telemetry -trend cardiac enzymes -check echo Chronic pain/anxiety/Polypharmacy- reports no recent changes in meds. - adamant on keeping Xanax at current dose-she's been on it for over 20 yrs -will try to minimze Percocet -Keep fentanyl at 100 mcg q 72 hrs -Continue Neurontin 600 mg TID Depression -Continue Effexor XR 75 mg TID DVT prophylaxis -Heparin 5000 BID subQ daily -TEDS, SCDs CODE STATUS -LEVEL I FULL CODE DISPO -will need pt/ot -would think d/c home though i personally examined pt and verified all pinzon points w A [facility] PAC confused. no sigificnat HPI or ROS obtainable from pt vitals noted, mucous membranes dry, breathing unlabored, otherwise exam as above confusion - encephalopathy - appearing metabolic (ie dehydration) far greater than anything septic (givne that she was treated twice for UTI and confusion picture only worsened -- further confirmed by late return of CRP and procalcitonin in very reassuring ranges for possible bacterial infection) -- polypharmacy/toxic enceph has to be on the list given her meds but sounds VERY reliable in how he gives them to her,and notes med list hasn't really changed much in years (except for when they tried to reduce xanax once recently - to a disastrous result) Level of Care Telemetry Resuscitation Status FULL RESUSCITATION VTE Prophylaxis VTE Risk Assessment Done? Y/N: Yes Risk Level: Low Given or contraindicated: Unfractionated heparin SQ, T.E.D. Stockings, SCD's
[2016-12-06] MEDS ORDERED: ONDANSETRON INJ 2 MG/ML 2 ML VIAL IV PRN (16:00)
[2016-12-06] MEDS ORDERED: VERA240T20 PO (16:19)
[2016-12-06] MEDS ORDERED: DOCU-94 PO (16:19)
[2016-12-06] MEDS ORDERED: GABA600T PO (16:19)
[2016-12-06] MEDS ORDERED: OXYC-57 PO (16:19)
[2016-12-06] MEDS ORDERED: SIMV40TA2 PO (16:19)
[2016-12-06] MEDS ORDERED: CALCTAB7 PO (16:19)
[2016-12-06] MEDS ORDERED: MULT-513 PO (16:19)
[2016-12-06] MEDS ORDERED: KRIL1000 PO (16:19)
[2016-12-06] MEDS ORDERED: FERR325T PO (16:19)
[2016-12-06] MEDS ORDERED: ALPR1TAB3 PO (16:19)
[2016-12-06] MEDS ORDERED: DRGTP100 TOP (16:19)
[2016-12-06] MEDS ORDERED: DOCUSATE SODIUM 100 MG CAP PO PRN (17:30)
--- NOTE | 2016-12-06 19:03 | EMERGENCY ROOM VISIT NOTE ---
History Report prepared by Desmond: Angelita Mercado Under the Supervision of: Dr. Tyrone Macario M.D. First contact with patient: 12:18 Chief Complaint: ALTERED MENTAL STATUS Stated Complaint: ALTERED MENTAL STATUS Nursing Triage Summary: Patient arrives via ALS from private residence in [place] with AMS. Patient was recently diagnosed with UTI but the patient hasn't been able to take the prescribed antibiotics. Patient was laying in bed when ALS arrived with AMS. Patient has been hallucinating and yelling out for a gentlmen by the name of Ethan. History of Present Illness The patient is a 71 year old female who presents to the Emergency Room via ALS with complaints of worsening altered mental status since last night. Per patient 's , the patient has been confused and unable to put sentences together. She also would not take any of her pills this morning. The patient had a UTI in October and was treated with Cipro. This past Monday (4 days ago), she was diagnosed with a new UTI. She was started on Macrobid yesterday and has taken 3 doses so far; however, her confusion has been getting worse and she has not been communicating appropriately. Her notes that she was fairly warm to the touch last night but he is unsure if she has had a fever as he has not taken her temperature. denies recent falls or head injuries, slurred speech, noticeable numbness or weakness, vomiting, or other complaints. The patient denies headache or abdominal pain. History limited secondary to altered mental status. Source of History: spouse/significant other History Limited By: AMS Onset: last night Position: other (global) Quality: other (confusion) Timing: worsening Associated Symptoms: No abdominal pain, No headache, No numbness, No vomiting, No weakness Review of Systems ROS limited secondary to altered mental status. Past Medical & Surgical Medical Problems: (1) Back pain (2) HTN (hypertension) (3) Metabolic encephalopathy Surgical Problems: (1) History of knee replacement Family History Hypertension Social History Smoking Status: Unknown if Ever Smoked Alcohol Use: none Marital Status: Housing Status: lives with family Occupation Status: employed Current/Historical Medications Scheduled Alprazolam (Xanax), 1 MG PO QID Calcium Carbonate-Vitamin D W/ (Caltrate 600 Plus), 1 TAB PO BID Fentanyl (Fentanyl), 100 MCG TOP [id number] Ferrous Sulfate (Ferrous Sulfate), 1 TAB PO TID Gabapentin (Neurontin), 600 MG PO TID Krill Oil (Krill Oil), 1 CAP PO DAILY Multivitamins/Minerals (Mvi With Minerals), 1 TAB PO DAILY Simvastatin (Zocor), 40 MG PO QPM Venlafaxine Hcl (Effexor Xr), 150 MG PO TID Verapamil Sust Rel (Calan Sr Ext Rel), 240 MG PO DAILY Scheduled PRN Docusate Sodium (Colace), 1 CAP PO TID PRN for Constipation Oxycodone/Acetaminophen 5MG/325MG (Percocet 5MG/325MG), 1 TABLET PO QID PRN for Pain Miscellaneous Medications Nitrofurantoin Monohyd Macrocr (Macrobid), Unknown Dose PO Allergies Coded Allergies: Penicillins (Verified Allergy, Intermediate, 11/17/16) RASH Ampicillin (Verified Allergy, Unknown, RASH, 11/17/16) Physical Exam Vital Signs Date Time Temp Pulse Resp B/P Pulse Ox O2 Delivery O2 Flow Rate FiO2 12/06/16 15:00 85 16 146/90 95 Room Air 12/06/16 14:05 85 18 150/89 96 Room Air 12/06/16 13:06 84 18 134/70 95 Room Air 12/06/16 12:52 36.8 12/06/16 11:46 83 16 152/92 97 Room Air 12/06/16 10:58 97 Room Air 12/06/16 10:58 37.0 85 14 163/79 97 Room Air Physical Exam Constitutional: Vital signs reviewed. Eyes: Conjunctiva are noninjected. Post-surgical changes. Left lazy eye. ENT: Pharynx is clear without erythema or exudate. Mucous membranes are dry. No evidence of thrush. Neck supple without meningeal signs. Respiratory: Clear to auscultation bilaterally. Breath sounds are equal bilaterally. Cardiovascular: Regular rate and rhythm. No rubs or gallops. GI: Soft, nondistended and nontender. Bowel sounds are present. Musculoskeletal: No peripheral edema. Integumentary: No cyanosis. Neurological: The patient is awake and alert. Moves all extremities. Does not follow all commands. Psychiatric: Unable to assess. Medical Decision & Procedures ER Provider Diagnostic Interpretation: Radiology results as stated below per my review and the radiologist's interpretation: CT HEAD WITHOUT CONTRAST (CT) CLINICAL HISTORY: Acute change in mental status. COMPARISON STUDY: 11/09/2016 TECHNIQUE: Axial CT of the brain is performed from the vertex to the skull base. IV contrast was not administered for this examination. CT DOSE: 614.27 mGy.cm FINDINGS: No intra or extra-axial mass lesions are visualized. There is no CT evidence of acute cortical infarction. There is no evidence of midline shift. There is no acute hemorrhage. No calvarial fractures are visualized. There are patchy white matter hypodensities likely on a small vessel basis. There is a stable right cerebellar lacunar infarct. There is no evidence of pathologic ventricular dilatation. There is no evidence of acute sinusitis IMPRESSION: No acute intracranial findings Electronically signed by: Abhi Grant M.D. 12/06/2016 1:27 PM Dictated Date/Time: 12/06/2016 1:26 PM CHEST ONE VIEW PORTABLE CLINICAL HISTORY: Sepsis dyspnea COMPARISON STUDY: 11/17/2016 FINDINGS: The bones soft tissues and hemidiaphragms are normal. The cardiomediastinal silhouette is normal. The lungs are clear. The pulmonary vasculature is normal. Apparent consolidative changes medial aspect right base unchanged in the prior study. Pain. Patient's prior CT study this relates to a hiatal hernia with a component of interposed stomach and colon. There are no acute infiltrates. IMPRESSION: No acute infiltrates. Increased density medial right base unchanged from the prior study and apparently relating to a complex hiatal hernia . Electronically signed by: Ar Morales M.D. 12/06/2016 1:24 PM Dictated Date/Time: 12/06/2016 1:22 PM Laboratory Results 12/06/16 13:00 Red Blood Count 4.36, Mean Corpuscular Volume 88.8, Mean Corpuscular Hemoglobin 30.3, Mean Corpuscular Hemoglobin Concent 34.1, Mean Platelet Volume 10.8, Neutrophils (%) (Auto) 82.4, Lymphocytes (%) (Auto) 9.1, Monocytes (%) (Auto) 8.1, Eosinophils (%) (Auto) 0.0, Basophils (%) (Auto) 0.1, Neutrophils # (Auto) 11.11, Lymphocytes # (Auto) 1.23, Monocytes # (Auto) 1.09, Eosinophils # (Auto) 0.00, Basophils # (Auto) 0.01 12/06/16 13:00 Test 2/21/17 11:00 12/06/16 13:00 12/06/16 13:08 Urine Color DK YELLOW Urine Appearance CLEAR (CLEAR) Urine pH 6.5 (4.5-7.5) Urine Specific [place] 1.026 (1.000-1.030) Urine Protein 1+ (NEG) Urine Glucose (UA) NEG (NEG) Urine Ketones 3+ (NEG) Urine Occult Blood NEG (NEG) Urine Nitrite NEG (NEG) Urine Bilirubin NEG (NEG) Urine Urobilinogen NEG (NEG) Urine Leukocyte Esterase TRACE (NEG) Urine WBC (Auto) 1-5 /hpf (0-5) Urine RBC (Auto) 0-4 /hpf (0-4) Urine Hyaline Casts (Auto) 1-5 /lpf (0-5) Urine Epithelial Cells (Auto) 20-30 /lpf (0-5) Urine Bacteria (Auto) NEG (NEG) White Blood Count 13.48 K/uL (4.8-10.8) Red Blood Count 4.36 M/uL (4.2-5.4) Hemoglobin 13.2 g/dL (12.0-16.0) Hematocrit 38.7 % (37-47) Mean Corpuscular Volume 88.8 fL (80-100) Mean Corpuscular Hemoglobin 30.3 pg (25-34) Mean Corpuscular Hemoglobin Concent 34.1 g/dl (32-36) Platelet Count 230 K/uL (130-400) Mean Platelet Volume 10.8 fL (7.4-10.4) Neutrophils (%) (Auto) 82.4 % Lymphocytes (%) (Auto) 9.1 % Monocytes (%) (Auto) 8.1 % Eosinophils (%) (Auto) 0.0 % Basophils (%) (Auto) 0.1 % Neutrophils # (Auto) 11.11 K/uL (1.4-6.5) Lymphocytes # (Auto) 1.23 K/uL (1.2-3.4) Monocytes # (Auto) 1.09 K/uL (0.11-0.59) Eosinophils # (Auto) 0.00 K/uL (0-0.5) Basophils # (Auto) 0.01 K/uL (0-0.2) RDW Standard Deviation 44.8 fL (36.4-46.3) RDW Coefficient of Variation 13.7 % (11.5-14.5) Immature Granulocyte % (Auto) 0.3 % Immature Granulocyte # (Auto) 0.04 K/uL (0.00-0.02) Prothrombin Time 12.3 SECONDS (9.0-12.0) Prothromb Time International Ratio 1.1 (0.9-1.1) Activated Partial Thromboplast Time 23.6 SECONDS (21.0-31.0) Partial Thromboplastin Ratio 0.9 Anion Gap 11.0 mmol/L (3-11) Est Creatinine Clear Calc Drug Dose 78.7 ml/min Estimated GFR () 107.8 Estimated GFR (Non- 93.1 BUN/Creatinine Ratio 48.0 (10-20) Calcium Level 8.9 mg/dl (8.5-10.1) Magnesium Level 2.1 mg/dl (1.8-2.4) Total Bilirubin 0.5 mg/dl (0.2-1) Aspartate Amino Transf (AST/SGOT) 31 U/L (15-37) Alanine Aminotransferase (ALT/SGPT) 19 U/L (12-78) Alkaline Phosphatase 55 U/L (45-117) Troponin I 0.099 ng/ml (0-0.045) C-Reactive Protein 1.23 mg/dl (0-0.29) Total Protein 6.6 gm/dl (6.4-8.2) Albumin 3.3 gm/dl (3.4-5.0) Globulin 3.3 gm/dl (2.5-4.0) Albumin/Globulin Ratio 1.0 (0.9-2) Procalcitonin < 0.05 ng/mL (0-0.5) Bedside Lactic Acid Venous 0.90 mmol/L (0.90-1.70) Laboratory results as reviewed by me. Medications Administered Medications (Trade) Dose Ordered Sig/Nathan Route Start Time Stop Time Status Last Admin Dose Admin Potassium Chloride (Kcl 10 Meq / Wtr) 10 meq NOW STAT IV 12/06/16 13:50 12/06/16 13:51 DC 12/06/16 14:07 10 MEQ ECG Indication: altered mental status Rate (beats per minute): 86 Rhythm: normal sinus Findings: other (Significant baseline artifact. Nonspecific STchanges and T wave inversions leads V3-V6.) Comparison ECG Date: February 2002 Change: no significant change ED Course 1224: The patient was evaluated in room C12B. A complete history and physical exam was performed. 1350: Ordered Potassium Chloride 10 meq IV. 1359: I spoke with the patient's about test results. He agreed with the treatment plan. 1401: I discussed the case with Dr. Rich RUBI Hospitalist. The patient will be evaluated for further management. Medical Decision This is a 71-year-old female presents with altered mental status. Differential diagnosis includes encephalopathy, intracranial hemorrhage, intracranial mass, metabolic derangement, UTI, sepsis. I did perform a limited focused review of portions of the patient's old chart on the electronic medical record. She was here on November 17 for urinary symptoms and mouth pain. She was diagnosed with thrush and treated with Nystatin. She had a chest CT which showed a hiatal hernia. She was here November 09 and diagnosed with a UTI and was already on Cipro. She had hallucinations at that time. She had a head CT which was unremarkable. I did evaluate the patient as noted above. The patient is presenting with change in mental status. She is not taking her medications. She was recently diagnosed with a UTI but only got 3 doses of Macrobid. I did obtain history from the patient's due to her altered mental status. IV access was established. The patient was placed on a continuous icing and glaze maker. I did order and personally review the patient's 12-lead EKG and chest x-ray as described above. I did order and review the patient's blood work as noted in the electronic medical record. She is hypokalemic. She also has an elevated troponin. I did treat her with IV KCl. I did order a CT of the head. I did review the images myself as well as the radiology report as described above. There is no evidence of bleed. Urinalysis is unremarkable. Urine culture was sent. I did discuss the test results with the patient's . I did recommend hospitalization for further workup. I did discuss the case with the hospitalist and caser. Consults Time Called: [id number] Consulting Physician: Dr. Rich RUBI Hospitalist Returned Call: [phone] I discussed the case with him. The patient will be evaluated for further management. Impression Primary Impression: Altered mental status Additional Impressions: Hypokalemia Elevated troponin Scribe Attestation The scribe's documentation has been prepared under my direct and personally reviewed by me in its entirety. I confirm that the note above accurately reflects all work, treatment, procedures, and medical decision making performed by me. Departure Information Dispostion Being Evaluated By Hospitalist Referrals Lesvia Toure M.D. (PCP) Patient Instructions My [facility] Problem Qualifiers Primary Impression: Altered mental status Altered mental status type: unspecified Qualified Codes: R41.82 - Altered mental status, unspecified
[2016-12-06] MEDS: CHECK FENTANYL PATCH PLACEMENT SCH (19:16)
[2016-12-06] MEDS: NSS + 20MEQ KCL 1000ML 1,000 ML IV SCH (19:16)
[2016-12-06] MEDS: FERROUS SULFATE 325 MG TAB PO SCH (19:17)
[2016-12-06] MEDS: FENTANYL PATCH REMOVE & WASTE SCH (19:22)
[2016-12-06] MEDS: FENTANYL 100 MCG/HR TDSY TD SCH (19:23)
[2016-12-06 20:13] VITALS: BP 161/78; PULSE 83; TEMP 37.2; O2SAT 91; Ht 162.6 cm; Wt 63.4 kg
[2016-12-06] MEDS: VENLAFAXINE HCL XR 75 MG CAPXR PO SCH (21:00)
[2016-12-06] MEDS: SIMVASTATIN 40 MG TAB PO SCH (21:00)
[2016-12-06] MEDS: NYSTATIN SUSP 500,000 U/5 ML UDC PO SCH (21:00)
[2016-12-06] MEDS: GABAPENTIN 600 MG TAB PO SCH (21:00)
[2016-12-06] MEDS: ALPRAZOLAM 0.5 MG TAB PO SCH (21:00)
[2016-12-06] MEDS: HEPARIN SOD 5000 UNIT/0.5 ML CARP SQ SCH (21:53)
[2016-12-06 23:15] VITALS: BP 146/97; PULSE 81; TEMP 36.6; O2SAT 92
[2016-12-07] MEDS: CHECK FENTANYL PATCH PLACEMENT SCH ×4 (00:17→23:56)
[2016-12-07 03:22] LABS: BASO % 0.1 %; BASO ABS # 0.01 K/uL (0-0.2); COMPLETE YES; HEMATOCRIT 42.3 % (37-47); IG% 0.2 %; LYMPH % 9.6 %; LYMPH ABS # 1.27 K/uL (1.2-3.4); MEAN CELL VOLUME 89.6 fL (80-100); MEAN CORPUSCULAR HEMOGLOBIN 30.5 pg (25-34); MEAN PLATELET VOLUME 10.7 fL (7.4-10.4); MONO % 5.5 %; NEUT % 84.6 %; PLATELET COUNT 226 K/uL (130-400); RED BLOOD COUNT 4.72 M/uL (4.2-5.4)
[2016-12-07 03:33] LABS: BUN/CREATININE RATIO 47.7 (10-20); CALCIUM 8.2 mg/dl (8.5-10.1); CREATININE 0.47 mg/dl (0.60-1.20); MAGNESIUM 2.1 mg/dl (1.8-2.4)
[2016-12-07 03:44] LABS: CKMB/CK RATIO 1.2 (0-3.0)
[2016-12-07 03:56] VITALS: BP 171/80; PULSE 87; TEMP 36.9; O2SAT 94
[2016-12-07 08:01] VITALS: BP 165/77; PULSE 82; TEMP 37.4; O2SAT 90
[2016-12-07] MEDS: NSS + 20MEQ KCL 1000ML 1,000 ML IV SCH ×2 (08:38→21:25)
[2016-12-07 09:00] VITALS: BP 168/91; PULSE 85; O2SAT 93
[2016-12-07] MEDS: VENLAFAXINE HCL XR 75 MG CAPXR PO SCH ×3 (09:26→21:25)
[2016-12-07] MEDS: GABAPENTIN 600 MG TAB PO SCH ×3 (09:26→21:25)
[2016-12-07] MEDS: VERAPAMIL HCL 240 MG TABCR PO SCH (09:26)
[2016-12-07] MEDS: NYSTATIN SUSP 500,000 U/5 ML UDC PO SCH ×3 (09:29→21:25)
[2016-12-07] MEDS: FERROUS SULFATE 325 MG TAB PO SCH ×3 (09:29→17:22)
[2016-12-07] MEDS: ALPRAZOLAM 0.5 MG TAB PO SCH ×4 (09:32→21:00)
[2016-12-07] MEDS: HEPARIN SOD 5000 UNIT/0.5 ML CARP SQ SCH ×2 (09:52→21:30)
[2016-12-07] MEDS ORDERED: POTASSIUM CHLORIDE 20 MEQ TABCR PO ONE (10:00)
[2016-12-07 12:55] LABS: CKMB/CK RATIO 1.8 (0-3.0)
[2016-12-07] MEDS ORDERED: VANCOMYCIN CONSULT ACTIVE PRN (14:30)
[2016-12-07 14:50] VITALS: BP 146/87; PULSE 90; TEMP 36.9; O2SAT 94
--- NOTE | 2016-12-07 14:58 | Pharmacy Progress Note ---
Pharmacy Antibiotic Consult Date of Service: Dec 07, 2016. Pharmacy Dosing Scope Pharmacy is consulted to initiate Vancomycin IV dosing therapy, order appropriate labs and adjust drug dose/frequency. Subjective The patient is a 71 year old female admitted on Dec 06, 2016 at 16:07. Objective Height (Feet): 5 Height (Inches): 4.00 Weight (Kilograms): 62.100 Lab Results (24hrs): Laboratory Tests Test 12/07/16 02:54 BUN/Creatinine Ratio 47.7 Blood Urea Nitrogen 22 mg/dl Creatinine 0.47 mg/dl White Blood Count 13.20 K/uL Red Blood Count 4.72 M/uL Hemoglobin 14.4 g/dL Hematocrit 42.3 % Mean Corpuscular Volume 89.6 fL Mean Corpuscular Hemoglobin 30.5 pg Mean Corpuscular Hemoglobin Concent 34.0 g/dl Platelet Count 226 K/uL Mean Platelet Volume 10.7 fL Neutrophils (%) (Auto) 84.6 % Lymphocytes (%) (Auto) 9.6 % Monocytes (%) (Auto) 5.5 % Eosinophils (%) (Auto) 0.0 % Basophils (%) (Auto) 0.1 % Neutrophils # (Auto) 11.17 K/uL Lymphocytes # (Auto) 1.27 K/uL Monocytes # (Auto) 0.72 K/uL Eosinophils # (Auto) 0.00 K/uL Basophils # (Auto) 0.01 K/uL Micro Results: Item Value Date Time Blood Culture - Preliminary Resulted 12/06/16 1300 Blood Gram Positive Cocci Blood Culture Received 12/06/16 1255 Blood Pending Urine Culture - Preliminary Resulted 12/06/16 1100 Urine,Catheterized NO GROWTH - LESS THAN 1,000 COLONIES/... Assessment & Plan ASSESSMENT: * Patient is a 71yo female admitted with altered mental status/weakness x2 weeks. * Pt diagnosed w/ UTI ~2 weeks ago and was on her 2nd course of abx when she presented to the ED. * Cipro? ( unsure of name) and then macrobid * Procalcitonin <0.05ng/mL, Lactic acid 0.9mmol/L, patient has been afebrile * Patient's blood cultures are now showing gram positive cocci in 1/2 cultures ( 2nd cx still pending). PLAN: Vancomycin: * Loading dose: Vancomycin 1550 mg (~25mg/kg) IV X 1 dose then: * Vancomycin 1000 mg (~16mg/kg) IV every 12 hours. * Goal trough level estimate: between 15 - 20 mcg/mL for bacteremia. * Trough level has been ordered for: 12/09 prior to the 4th maintenance dose ( which should be near steady-state) Pharmacy will continue to follow and will adjust dose/frequency as necessary. Thank you
[2016-12-07] MEDS ORDERED: VANCOMYCIN INJ 1,550 MG in SODIUM CHLORIDE 0.9% 500ML 500 ML IV ONE (15:00)
--- NOTE | 2016-12-07 15:46 | ECHOCARDIOGRAM REPORT ---
*NOTICE TO RECEIVING DEMOCRAT AGENCY This information is strictly Confidential and protected under [place] law. [place] law prohibits you from making any further disclosure of this information unless further disclosure is expressly permitted by the written consent of the person to whom it pertains or is authorized by law. A general authorization for the release of medical or other information is not sufficient for this purpose. Hospital accepts no responsibility if the information is made available to any other person, INCLUDING THE PATIENT. Interpretation Summary * Name: Galo BRYAN Study Date: 12/07/2016 11:27 AM BP: 165/77 mmHg * Patient Location: [facility]\S\N285\S\1 HR: 84 * : 1945 (M/d/yyyy) Gender: Female Height: 64 in * Age: 71 yrs Ethnicity: [place] Weight: 140 lb * Ordering Physician: Urszula Potter * Referring Physician: Self, Referred * Performed By: Liv Trevino RCS * * Reason For Study: ELEVATED/BUMPED TROPONIN * BSA: 1.7 m2 * -- Conclusions -- * 1. Normal left ventricular size and systolic function. EF 60-65%. No regional wall motion abnormalities. No left ventricular hypertrophy. Type 1 diastolic dysfunction. * 2. No significant valvular abnormalities visualized. * 3. Normal estimated right ventricular systolic pressure; 32 mmHg. * 4. No prior study available for comparison. Procedure Details * A complete two-dimensional transthoracic echocardiogram was performed (2D, M-mode, Doppler and color flow Doppler). Left Ventricle * Normal left ventricular size and systolic function. EF 60-65%. No regional wall motion abnormalities. No left ventricular hypertrophy. Type 1 diastolic dysfunction. Right Ventricle * The right ventricle is normal in size and function. * The right ventricular systolic function is normal as assessed by tricuspid annular plane systolic excursion (TAPSE) (normal >1.5 cm). Atria * The left atrial size is normal. * Right atrial size is normal. * There is no evidence of atrial septal defect, but resolution does not allow assessment for a patent foramen ovale. Mitral Valve * There is mild to moderate mitral annular calcification. * There is no mitral valve stenosis. * There is trace mitral regurgitation. Tricuspid Valve * The tricuspid valve anatomy is normal. * There is no tricuspid stenosis. * There is trace tricuspid regurgitation. Aortic Valve * The aortic valve is trileaflet. * No hemodynamically significant valvular aortic stenosis. * No aortic regurgitation is present. Pulmonic Valve * The pulmonary valve is inadequately visualized, but the Doppler data is adequate for interpretation. * There is no pulmonic valvular stenosis. * There is no significant pulmonary regurgitation. Great Vessels * The aortic root is normal size. * Aortic arch of normal dimension. * Normal inferior vena cava size and collapsability with sniff indicates a normal right atrial pressure of 3 mmHg MMode 2D Measurements and Calculations IVSd 1.1 cm IVSs 1.6 cm LVIDd 5.2 cm LVIDs 3.5 cm LVPWd 0.70 cm LVPWs 1.3 cm IVS/LVPW 1.5 FS 33.0 % EDV(Teich) 128.4 ml ESV(Teich) 49.9 ml EF(Teich) 61.1 % EDV(cubed) 139.0 ml ESV(cubed) 41.8 ml EF(cubed) 69.9 % % IVS thick 46.4 % % LVPW thick 91.9 % LV mass(C)d 162.9 grams LV mass(C)dI 96.9 grams/m\S\2 LV mass(C)s 180.1 grams LV mass(C)sI 107.1 grams/m\S\2 SV(Teich) 78.5 ml SI(Teich) 46.7 ml/m\S\2 SV(cubed) 97.2 ml SI(cubed) 57.8 ml/m\S\2 Ao root diam 3.1 cm Ao root area 7.7 cm\S\2 ACS 1.6 cm LA dimension 3.7 cm LA/Ao 1.2 LVOT diam 2.0 cm LVOT area 3.3 cm\S\2 LVAd ap4 22.5 cm\S\2 LVLd ap4 6.3 cm EDV(MOD-sp4) 66.6 ml EDV(sp4-el) 67.9 ml LVAs ap4 12.7 cm\S\2 LVLs ap4 5.5 cm ESV(MOD-sp4) 27.3 ml ESV(sp4-el) 24.8 ml EF(MOD-sp4) 59.0 % EF(sp4-el) 63.4 % SV(MOD-sp4) 39.3 ml SI(MOD-sp4) 23.4 ml/m\S\2 SV(sp4-el) 43.1 ml SI(sp4-el) 25.6 ml/m\S\2 Doppler Measurements and Calculations MV E max greyson 67.4 cm/sec MV A max greyson 71.2 cm/sec MV E/A 0.95 MV P1/2t max greyson 62.1 cm/sec MV P1/2t 59.7 msec MVA(P1/2t) 3.7 cm\S\2 MV dec slope 305.0 cm/sec\S\2 MV dec time 0.25 sec Ao V2 max 150.9 cm/sec Ao max PG 9.1 mmHg Ao max PG (full) 5.0 mmHg IDRIS(V,A) 2.2 cm\S\2 IDRIS(V,D) 2.2 cm\S\2 LV V1 max PG 4.1 mmHg LV V1 max 101.4 cm/sec TV E max greyson 59.3 cm/sec PA V2 max 154.2 cm/sec PA max PG 9.5 mmHg TR max greyson 268.4 cm/sec RVSP(TR) 31.8 mmHg RAP systole 3.0 mmHg
[2016-12-07 19:43] VITALS: BP 118/69; PULSE 75; TEMP 37.2; O2SAT 95
[2016-12-07] MEDS: SIMVASTATIN 40 MG TAB PO SCH (21:25)
--- NOTE | 2016-12-07 21:31 | Progress Note ---
Subjective Subjective Date of Service: Dec 07, 2016. Pt evaluation today including: conversation w/ patient, physical exam, chart review, review of studies, review of inpatient medication list Problem List Medical Problems: (1) Altered mental status Status: Acute (2) Elevated troponin Status: Acute (3) Hypokalemia Status: Acute (4) Thrush Status: Acute (5) Weakness Status: Acute Review of Systems Constitutional: No fever ENT: No hearing loss Respiratory: No cough Cardiac: No chest pain Abdomen: No pain Female : No dysuria Psychiatric: No depression symptoms Endo: No fatigue Physical Exam Vital Signs Vital Signs Past 24 Hours: Date Time Temp Pulse Resp B/P Pulse Ox O2 Delivery O2 Flow Rate FiO2 12/07/16 19:43 37.2 75 20 118/69 95 Room Air 12/07/16 15:56 Room Air 12/07/16 14:50 36.9 90 20 146/87 94 Room Air 12/07/16 11:58 Room Air 12/07/16 09:00 85 93 12/07/16 08:01 37.4 82 20 165/77 90 Room Air 12/07/16 08:00 Room Air 12/07/16 04:00 Room Air 12/07/16 03:56 36.9 87 18 171/80 94 Room Air 12/07/16 00:00 Room Air 12/06/16 23:15 36.6 81 18 146/97 92 Room Air Physical Exam: General Appearance: WD/WN, no apparent distress Eyes: bilateral eyes normal inspection ENT: hearing grossly normal, pharynx normal Neck: no adenopathy, no JVD Respiratory/Chest: normal breath sounds, no accessory muscle use Cardiovascular: no edema, no gallop Abdomen: soft Extremities: non-tender Neurologic/Psychiatric: normal mood/affect Medications Medications: Current Inpatient Medications Medications (Trade) Dose Ordered Sig/Nathan Route Start Time Stop Time Status Last Admin Dose Admin Potassium Chloride/Sodium Chloride (Nss + 20meq KCl 1000ml) 1,000 ml @ 80 mls/hr [id number] IV 12/06/16 19:30 01/05/17 19:29 12/07/16 08:38 80 MLS/HR Heparin Sodium (Porcine) (Heparin Sq 5000 Unit/0.5ml) 5,000 unit Q12 SQ 12/06/16 21:00 01/05/17 20:59 12/07/16 09:52 5,000 UNIT Acetaminophen (Tylenol Tab) 650 mg Q4H PRN PO 12/06/16 16:00 01/05/17 15:59 Ondansetron HCl (Zofran Inj) 4 mg Q6H PRN IV 12/06/16 16:00 01/05/17 15:59 Alprazolam (Xanax Tab) 1 mg QID PO 12/06/16 21:00 01/05/17 20:59 12/07/16 17:24 1 MG Docusate Sodium (coLACE CAP) 100 mg TID PRN PO 12/06/16 17:30 01/05/17 17:29 Fentanyl (Duragesic Patch) 100 mcg Q3D@1700 TD 12/06/16 17:00 12/20/16 16:59 12/06/16 19:23 100 MCG Gabapentin (Neurontin Tab) 600 mg TID PO 12/06/16 21:00 01/05/17 20:59 12/07/16 14:20 600 MG Simvastatin (Zocor Tab) 40 mg QPM PO 12/06/16 21:00 01/05/17 20:59 Venlafaxine HCl (effeXOR EXTENDED REL CAP) 75 mg TID PO 12/06/16 21:00 01/05/17 20:59 12/07/16 14:21 75 MG Verapamil HCl (Calan-Sr Tab) 240 mg DAILY PO 12/07/16 09:00 01/06/17 08:59 12/07/16 09:26 240 MG Ferrous Sulfate (Feosol Tab) 325 mg TIDM PO 12/06/16 18:00 01/05/17 17:59 12/07/16 17:22 325 MG Miscellaneous (Fentanyl Patch Remove & Waste) 1 ea Q3D@1659 N/A 12/06/16 16:59 01/05/17 16:58 12/06/16 19:22 1 EA Miscellaneous Information (Check Fentanyl Patch Placement) 1 ea QS N/A 12/06/16 16:00 01/05/17 15:59 12/07/16 15:34 1 EA Nystatin 5 ml 5 ml TID PO 12/06/16 21:00 12/16/16 20:59 12/07/16 14:21 5 ML Vancomycin HCl/ Sodium Chloride (Vancomycin Inj/ Nss 250ml) 270 ml @ 125 mls/hr Q12H IV 12/08/16 04:00 12/21/16 15:59 Vancomycin HCl (Consult) 1 ea UD PRN N/A 12/07/16 14:30 12/21/16 14:59 Laboratory Data Labs: Last 24 Hours Test 12/07/16 02:54 12/07/16 11:45 White Blood Count 13.20 K/uL Red Blood Count 4.72 M/uL Hemoglobin 14.4 g/dL Hematocrit 42.3 % Mean Corpuscular Volume 89.6 fL Mean Corpuscular Hemoglobin 30.5 pg Mean Corpuscular Hemoglobin Concent 34.0 g/dl Platelet Count 226 K/uL Mean Platelet Volume 10.7 fL Neutrophils (%) (Auto) 84.6 % Lymphocytes (%) (Auto) 9.6 % Monocytes (%) (Auto) 5.5 % Eosinophils (%) (Auto) 0.0 % Basophils (%) (Auto) 0.1 % Neutrophils # (Auto) 11.17 K/uL Lymphocytes # (Auto) 1.27 K/uL Monocytes # (Auto) 0.72 K/uL Eosinophils # (Auto) 0.00 K/uL Basophils # (Auto) 0.01 K/uL RDW Standard Deviation 45.4 fL RDW Coefficient of Variation 13.7 % Immature Granulocyte % (Auto) 0.2 % Immature Granulocyte # (Auto) 0.03 K/uL Sodium Level 148 mmol/L Potassium Level 3.0 mmol/L Chloride Level 109 mmol/L Carbon Dioxide Level 27 mmol/L Anion Gap 12.0 mmol/L Blood Urea Nitrogen 22 mg/dl Creatinine 0.47 mg/dl Est Creatinine Clear Calc Drug Dose 92.1 ml/min Estimated GFR () 113.6 Estimated GFR (Non- 98.0 BUN/Creatinine Ratio 47.7 Random Glucose 124 mg/dl Calcium Level 8.2 mg/dl Magnesium Level 2.1 mg/dl Total Creatine Kinase 196 U/L 130 U/L Creatine Kinase MB 2.4 ng/ml 2.4 ng/ml Creatine Kinase MB Ratio 1.2 1.8 Troponin I 0.055 ng/ml 0.048 ng/ml Assessment and Plan 71-year-old female presents emergency department with altered mental status, currently being treated for urinary tract infection, not eating or drinking at home Metabolic encephalopathy, dehydration vs UTI telemetry check blood/urine cx cont NSS + 20 mEq KCl @ 80 cc/hr Repeat PRP in am 1/2 positive blood cultures, could be a contaminant, but patient recently had UTI, will start IV vanco pending final bl cx results Mild elevation in Troponin-some EKG changes noted. None for comparison. Low suspicion of ACS monitor on telemetry trend cardiac enzymes echo EF 60-65% Chronic pain/anxiety/Polypharmacy- reports no recent changes in meds. adamant on keeping Xanax at current dose-she's been on it for over 20 yrs continue Percocet Keep fentanyl at 100 mcg q 72 hrs Continue Neurontin 600 mg TID Depression Continue Effexor XR 75 mg TID DVT prophylaxis Heparin 5000 BID subQ daily TEDS, SCDs CODE STATUS FULL CODE DISPO pt/ot
[2016-12-08] VITALS (8 sets, daily range): BP systolic 113–158; BP diastolic 67–84; PULSE 64–93; TEMP 36.4–37.3; O2SAT 90–97
[2016-12-08] MEDS ORDERED: VANCOMYCIN INJ 1,000 MG in SODIUM CHLORIDE 0.9% 250ML 250 ML IV SCH (04:00)
[2016-12-08 06:43] LABS: COMPLETE YES; HEMATOCRIT 38.7 % (37-47); IG% 0.2 %; LYMPH % 18.6 %; LYMPH ABS # 1.65 K/uL (1.2-3.4); MEAN CELL VOLUME 90.8 fL (80-100); MEAN CORPUSCULAR HEMOGLOBIN 29.6 pg (25-34); MEAN CORPUSCULAR HGB CONC 32.6 g/dl (32-36); MONO % 6.4 %; NEUT % 74.8 %; PLATELET COUNT 195 K/uL (130-400); RED BLOOD COUNT 4.26 M/uL (4.2-5.4); WHITE BLOOD COUNT 8.85 K/uL (4.8-10.8)
[2016-12-08 07:08] LABS: BUN/CREATININE RATIO 40.5 (10-20); CALCIUM 7.7 mg/dl (8.5-10.1); CREATININE 0.45 mg/dl (0.60-1.20); POTASSIUM 3.2 mmol/L (3.5-5.1)
[2016-12-08] MEDS: FERROUS SULFATE 325 MG TAB PO SCH ×3 (08:32→17:00)
[2016-12-08] MEDS: CHECK FENTANYL PATCH PLACEMENT SCH ×3 (08:32→23:56)
[2016-12-08] MEDS: NSS + 20MEQ KCL 1000ML 1,000 ML IV SCH ×2 (08:33→21:23)
[2016-12-08] MEDS: GABAPENTIN 600 MG TAB PO SCH ×3 (08:34→21:23)
[2016-12-08] MEDS: HEPARIN SOD 5000 UNIT/0.5 ML CARP SQ SCH ×2 (08:35→21:22)
[2016-12-08] MEDS: VENLAFAXINE HCL XR 75 MG CAPXR PO SCH ×3 (08:36→21:22)
[2016-12-08] MEDS: VERAPAMIL HCL 240 MG TABCR PO SCH (08:36)
[2016-12-08] MEDS: NYSTATIN SUSP 500,000 U/5 ML UDC PO SCH ×3 (08:36→21:23)
[2016-12-08] MEDS: ALPRAZOLAM 0.5 MG TAB PO SCH ×4 (08:39→21:23)
--- NOTE | 2016-12-08 14:16 | Progress Note ---
Subjective Subjective Date of Service: Dec 08, 2016. Pt evaluation today including: conversation w/ patient, physical exam, chart review, review of studies, review of inpatient medication list Notes: had episode of "afib" on tele for few seconds according to RN, back to NSR Problem List Medical Problems: (1) Altered mental status Status: Acute (2) Elevated troponin Status: Acute (3) Hypokalemia Status: Acute (4) Thrush Status: Acute (5) Weakness Status: Acute Review of Systems Constitutional: No fever ENT: No hearing loss Respiratory: No cough Abdomen: No pain Neurologic: No memory loss Psychiatric: No depression symptoms Physical Exam Vital Signs Vital Signs Past 24 Hours: Date Time Temp Pulse Resp B/P Pulse Ox O2 Delivery O2 Flow Rate FiO2 12/08/16 12:34 37.3 67 18 158/84 90 Room Air 12/08/16 11:15 Room Air 12/08/16 08:04 36.7 93 20 148/78 93 Room Air 12/08/16 07:33 Room Air 12/08/16 04:00 Room Air 12/08/16 04:00 36.4 64 18 137/80 94 Room Air 12/08/16 00:00 37.3 88 20 145/81 91 Room Air 12/08/16 00:00 Room Air 12/07/16 20:00 Room Air 12/07/16 19:43 37.2 75 20 118/69 95 Room Air 12/07/16 15:56 Room Air 12/07/16 14:50 36.9 90 20 146/87 94 Room Air Physical Exam: General Appearance: WD/WN, no apparent distress Eyes: bilateral eyes normal inspection ENT: hearing grossly normal, pharynx normal Neck: supple, no JVD Respiratory/Chest: lungs clear, no respiratory distress Cardiovascular: no edema, no JVD Abdomen: non tender, no organomegaly Extremities: non-tender, no pedal edema Neurologic/Psychiatric: alert Skin: warm/dry Medications Medications: Current Inpatient Medications Medications (Trade) Dose Ordered Sig/Nathan Route Start Time Stop Time Status Last Admin Dose Admin Potassium Chloride/Sodium Chloride (Nss + 20meq KCl 1000ml) 1,000 ml @ 80 mls/hr [id number] IV 12/06/16 19:30 01/05/17 19:29 12/08/16 08:33 80 MLS/HR Heparin Sodium (Porcine) (Heparin Sq 5000 Unit/0.5ml) 5,000 unit Q12 SQ 12/06/16 21:00 01/05/17 20:59 12/08/16 08:35 5,000 UNIT Acetaminophen (Tylenol Tab) 650 mg Q4H PRN PO 12/06/16 16:00 01/05/17 15:59 Ondansetron HCl (Zofran Inj) 4 mg Q6H PRN IV 12/06/16 16:00 01/05/17 15:59 Alprazolam (Xanax Tab) 1 mg QID PO 12/06/16 21:00 01/05/17 20:59 12/08/16 13:11 1 MG Docusate Sodium (coLACE CAP) 100 mg TID PRN PO 12/06/16 17:30 01/05/17 17:29 Fentanyl (Duragesic Patch) 100 mcg Q3D@1700 TD 12/06/16 17:00 12/20/16 16:59 12/06/16 19:23 100 MCG Gabapentin (Neurontin Tab) 600 mg TID PO 12/06/16 21:00 01/05/17 20:59 12/08/16 13:10 600 MG Simvastatin (Zocor Tab) 40 mg QPM PO 12/06/16 21:00 01/05/17 20:59 12/07/16 21:25 40 MG Venlafaxine HCl (effeXOR EXTENDED REL CAP) 75 mg TID PO 12/06/16 21:00 01/05/17 20:59 12/08/16 13:09 75 MG Verapamil HCl (Calan-Sr Tab) 240 mg DAILY PO 12/07/16 09:00 01/06/17 08:59 12/08/16 08:36 240 MG Ferrous Sulfate (Feosol Tab) 325 mg TIDM PO 12/06/16 18:00 01/05/17 17:59 12/08/16 13:09 325 MG Miscellaneous (Fentanyl Patch Remove & Waste) 1 ea Q3D@1659 N/A 12/06/16 16:59 01/05/17 16:58 12/06/16 19:22 1 EA Miscellaneous Information (Check Fentanyl Patch Placement) 1 ea QS N/A 12/06/16 16:00 01/05/17 15:59 12/08/16 08:32 1 EA Nystatin (Mycostatin Susp) 5 ml TID PO 12/06/16 21:00 12/16/16 20:59 12/08/16 13:09 5 ML Laboratory Data Labs: Last 24 Hours Test 12/08/16 05:56 White Blood Count 8.85 K/uL Red Blood Count 4.26 M/uL Hemoglobin 12.6 g/dL Hematocrit 38.7 % Mean Corpuscular Volume 90.8 fL Mean Corpuscular Hemoglobin 29.6 pg Mean Corpuscular Hemoglobin Concent 32.6 g/dl Platelet Count 195 K/uL Mean Platelet Volume 11.0 fL Neutrophils (%) (Auto) 74.8 % Lymphocytes (%) (Auto) 18.6 % Monocytes (%) (Auto) 6.4 % Eosinophils (%) (Auto) 0.0 % Basophils (%) (Auto) 0.0 % Neutrophils # (Auto) 6.61 K/uL Lymphocytes # (Auto) 1.65 K/uL Monocytes # (Auto) 0.57 K/uL Eosinophils # (Auto) 0.00 K/uL Basophils # (Auto) 0.00 K/uL RDW Standard Deviation 45.3 fL RDW Coefficient of Variation 13.6 % Immature Granulocyte % (Auto) 0.2 % Immature Granulocyte # (Auto) 0.02 K/uL Sodium Level 149 mmol/L Potassium Level 3.2 mmol/L Chloride Level 114 mmol/L Carbon Dioxide Level 27 mmol/L Anion Gap 8.0 mmol/L Blood Urea Nitrogen 18 mg/dl Creatinine 0.45 mg/dl Est Creatinine Clear Calc Drug Dose 96.2 ml/min Estimated GFR () 115.2 Estimated GFR (Non- 99.4 BUN/Creatinine Ratio 40.5 Random Glucose 105 mg/dl Calcium Level 7.7 mg/dl Assessment and Plan 71-year-old female presents emergency department with altered mental status, currently being treated for urinary tract infection, not eating or drinking at home Metabolic encephalopathy, dehydration vs UTI telemetry check blood/urine cx cont NSS + 20 mEq KCl @ 80 cc/hr Repeat PRP in am 1/2 positive blood cultures, could be a contaminant, but patient recently had UTI, given IV vanco yesterday, final bl cx results are likely a contaminant, stopped IV vanco Mild elevation in Troponin-some EKG changes noted. None for comparison. Low suspicion of ACS monitor on telemetry trend cardiac enzymes echo EF 60-65% recheck EKG now due to telemetry short episode of irregular narrow complex tachycardia Chronic pain/anxiety/Polypharmacy- reports no recent changes in meds. adamant on keeping Xanax at current dose-she's been on it for over 20 yrs continue Percocet Keep fentanyl at 100 mcg q 72 hrs Continue Neurontin 600 mg TID Depression Continue Effexor XR 75 mg TID DVT prophylaxis Heparin 5000 BID subQ daily TEDS, SCDs CODE STATUS FULL CODE DISPO: SNF with PT
--- NOTE | 2016-12-08 16:05 | DIAGNOSTIC IMAGING REPORT ---
CT HEAD WITHOUT CONTRAST (CT) CLINICAL HISTORY: Stroke. Confusion. COMPARISON STUDY: 12/06/2016 TECHNIQUE: Axial CT of the brain is performed from the vertex to the skull base. IV contrast was not administered for this examination. CT DOSE: 691.05 mGy.cm FINDINGS: No intra or extra-axial mass lesions are visualized. There is no CT evidence of acute cortical infarction. There is no evidence of midline shift. There is no acute hemorrhage. No calvarial fractures are visualized. There are patchy white matter hypodensities likely on a small vessel basis. There is stable atrophy, most pronounced within the temporal lobes. There is a stable cerebellar lacunar infarct. There is no evidence of pathologic ventricular dilatation. There is no evidence of acute sinusitis IMPRESSION: No acute intracranial findings Electronically signed by: Abhi Grant M.D. 12/08/2016 4:04 PM Dictated Date/Time: 12/08/2016 4:02 PM
[2016-12-08 21:08] LABS: BUN/CREATININE RATIO 31.8 (10-20); CALCIUM 7.6 mg/dl (8.5-10.1); CREATININE 0.45 mg/dl (0.60-1.20); MAGNESIUM 1.9 mg/dl (1.8-2.4)
[2016-12-08 21:21] LABS: PHOSPHORUS 1.2 mg/dl (2.5-4.9)
[2016-12-08] MEDS: SIMVASTATIN 40 MG TAB PO SCH (21:23)
[2016-12-08] MEDS ORDERED: POTASSIUM PHOS 3 MMOL/1 ML INFUSION IV STA (21:56)
[2016-12-08] MEDS: POTASSIUM CHLR 10 MEQ / WTR 10 MEQ in PREMIXED WATER 100 ML IV SCH (22:29)
[2016-12-08] MEDS ORDERED: POTASSIUM PHOSPHATE INJ 30 MMOL in SODIUM CHLORIDE 0.9% 500ML 500 ML IV SCH (22:30)
[2016-12-09 00:33] VITALS: BP 151/88; PULSE 68; TEMP 36.4; O2SAT 90
[2016-12-09] MEDS: POTASSIUM CHLR 10 MEQ / WTR 10 MEQ in PREMIXED WATER 100 ML IV SCH (01:00)
[2016-12-09 04:00] VITALS: BP 142/91; PULSE 60; TEMP 36.5; O2SAT 96
[2016-12-09 07:34] LABS: BASO % 0.1 %; BASO ABS # 0.01 K/uL (0-0.2); COMPLETE YES; EOS % 0.5 %; HEMATOCRIT 38.6 % (37-47); IG% 0.8 %; LYMPH % 27.2 %; LYMPH ABS # 2.07 K/uL (1.2-3.4); MEAN CELL VOLUME 87.1 fL (80-100); MEAN CORPUSCULAR HGB CONC 34.5 g/dl (32-36); MEAN PLATELET VOLUME 11.8 fL (7.4-10.4); MONO % 9.4 %; PLATELET COUNT 189 K/uL (130-400); RED BLOOD COUNT 4.43 M/uL (4.2-5.4); WHITE BLOOD COUNT 7.62 K/uL (4.8-10.8)
[2016-12-09 07:44] VITALS: BP 146/77; PULSE 60; TEMP 35.6; O2SAT 96
[2016-12-09 07:53] LABS: BLOOD UREA NITROGEN 10 mg/dl (7-18); CALCIUM 7.7 mg/dl (8.5-10.1); CARBON DIOXIDE 25 mmol/L (21-32); CHLORIDE 107 mmol/L (98-107); CREATININE 0.33 mg/dl (0.60-1.20); GLUCOSE 97 mg/dl (70-99); SODIUM 140 mmol/L (136-145)
[2016-12-09] MEDS: VERAPAMIL HCL 240 MG TABCR PO SCH (08:00)
[2016-12-09] MEDS: NYSTATIN SUSP 500,000 U/5 ML UDC PO SCH ×3 (08:00→20:12)
[2016-12-09] MEDS: GABAPENTIN 600 MG TAB PO SCH ×3 (08:00→20:13)
[2016-12-09] MEDS: FERROUS SULFATE 325 MG TAB PO SCH ×3 (08:00→17:08)
[2016-12-09] MEDS: CHECK FENTANYL PATCH PLACEMENT SCH ×2 (08:01→15:27)
[2016-12-09] MEDS: VENLAFAXINE HCL XR 75 MG CAPXR PO SCH ×3 (08:01→20:11)
[2016-12-09] MEDS: HEPARIN SOD 5000 UNIT/0.5 ML CARP SQ SCH ×2 (08:02→20:12)
[2016-12-09] MEDS: ALPRAZOLAM 0.5 MG TAB PO SCH ×4 (08:09→20:14)
[2016-12-09 08:43] LABS: MAGNESIUM 1.9 mg/dl (1.8-2.4)
[2016-12-09 09:51] LABS: POTASSIUM 3.6 mmol/L (3.5-5.1)
[2016-12-09] MEDS: NSS + 20MEQ KCL 1000ML 1,000 ML IV SCH ×2 (10:49→21:59)
[2016-12-09 11:31] VITALS: BP 128/93; PULSE 61; TEMP 36.3; O2SAT 92
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
--- NOTE | 2016-12-09 14:03 | Psychiatric Consultation ---
Consultation Identifying Data 71 yo female who was seen today with at bedside. They reside in [place]. Consultation is by Dr. Randall for delirium. Chief Complaint "she got like this before when she had a UTI" History of Present Illness patient brought to ED with 2 days of AMS, admit for rx of UTI. Patient who has no baseline dementia per didn't recognize him and thought she was 16 and . maintains that she has been on Xanax for approximately 20 years and maintains that Effexor and her Xanax are prescribed by combo of her pain doctor and PCP with good communication. She ambulates well at baseline. She has a history of nonspecific anxiety and depression and denies any formal psych history. He states that she has a previous period of AMS that last 8 days while hospitalized for a UTI in [place]. They are well aware of the risks of combining benzos and fentanyl and state when attempts were made to taper before in the context of delirium that she became even more confused and even combative with nurses. She is currently resting but participates in the conversation. He states that her jaw tremor is baseline. She is now recognizing him but thinks she's her father. She hasn't been responding to internal stimuli. Past Psychiatric History Current OP Treatment: no current treatment Prior OP Treatment: no prior treatment no suicide attempts or inpatient hospitalizations. Past Medical/Surgical History Problem List: (1) Metabolic encephalopathy (2) Hypokalemia (3) Elevated troponin (4) UTI (urinary tract infection) (5) HTN (hypertension) (6) Altered mental status Allergies Allergies: Coded Allergies: Penicillins (Verified Allergy, Intermediate, 11/17/16) RASH Ampicillin (Verified Allergy, Unknown, RASH, 11/17/16) Home Medications Scheduled Alprazolam (Xanax), 1 MG PO QID Calcium Carbonate-Vitamin D W/ (Caltrate 600 Plus), 1 TAB PO BID Fentanyl (Fentanyl), 100 MCG TOP [id number] Ferrous Sulfate (Ferrous Sulfate), 1 TAB PO TID Gabapentin (Neurontin), 600 MG PO TID Krill Oil (Krill Oil), 1 CAP PO DAILY Multivitamins/Minerals (Mvi With Minerals), 1 TAB PO DAILY Simvastatin (Zocor), 40 MG PO QPM Venlafaxine Hcl (Effexor Xr), 150 MG PO TID Verapamil Sust Rel (Calan Sr Ext Rel), 240 MG PO DAILY Scheduled PRN Docusate Sodium (Colace), 1 CAP PO TID PRN for Constipation Oxycodone/Acetaminophen 5MG/325MG (Percocet 5MG/325MG), 1 TABLET PO QID PRN for Pain Miscellaneous Medications Nitrofurantoin Monohyd Macrocr (Macrobid), Unknown Dose PO Family History Hypertension denied family suicide Alcohol Use Alcohol Use In Past 12 Months: No Substance History denied Personal History Relationship History: Children: 2 daughters Review of Systems patient unable to complete due to delirium. Examination Vital Signs Vital Signs Past 12 Hours Date Time Temp Pulse Resp B/P Pulse Ox O2 Delivery O2 Flow Rate FiO2 12/09/16 11:31 36.3 61 16 128/93 92 Room Air 12/09/16 08:00 Room Air 12/09/16 07:44 35.6 60 16 146/77 96 Room Air 12/09/16 04:00 Room Air 12/09/16 04:00 36.5 60 20 142/91 96 Room Air Laboratory Results Last 24 Hours Test 12/08/16 15:28 12/08/16 16:28 12/08/16 20:35 12/08/16 23:21 Creatine Kinase MB Ratio Creatine Kinase MB 1.7 ng/ml 1.0 ng/ml Troponin I 0.020 ng/ml 0.021 ng/ml Sodium Level 143 mmol/L Potassium Level 3.0 mmol/L Chloride Level 108 mmol/L Carbon Dioxide Level 28 mmol/L Anion Gap 7.0 mmol/L Blood Urea Nitrogen 14 mg/dl Creatinine 0.45 mg/dl Est Creatinine Clear Calc Drug Dose 96.2 ml/min Estimated GFR () 115.2 Estimated GFR (Non- 99.4 BUN/Creatinine Ratio 31.8 Random Glucose 104 mg/dl Calcium Level 7.6 mg/dl Phosphorus Level 1.2 mg/dl Magnesium Level 1.9 mg/dl Test 12/08/16 23:28 12/09/16 06:39 12/09/16 08:22 Creatine Kinase MB Ratio White Blood Count 7.62 K/uL Red Blood Count 4.43 M/uL Hemoglobin 13.3 g/dL Hematocrit 38.6 % Mean Corpuscular Volume 87.1 fL Mean Corpuscular Hemoglobin 30.0 pg Mean Corpuscular Hemoglobin Concent 34.5 g/dl Platelet Count 189 K/uL Mean Platelet Volume 11.8 fL Neutrophils (%) (Auto) 62.0 % Lymphocytes (%) (Auto) 27.2 % Monocytes (%) (Auto) 9.4 % Eosinophils (%) (Auto) 0.5 % Basophils (%) (Auto) 0.1 % Neutrophils # (Auto) 4.72 K/uL Lymphocytes # (Auto) 2.07 K/uL Monocytes # (Auto) 0.72 K/uL Eosinophils # (Auto) 0.04 K/uL Basophils # (Auto) 0.01 K/uL RDW Standard Deviation 42.3 fL RDW Coefficient of Variation 13.3 % Immature Granulocyte % (Auto) 0.8 % Immature Granulocyte # (Auto) 0.06 K/uL Sodium Level 140 mmol/L Potassium Level mmol/L 3.6 mmol/L Chloride Level 107 mmol/L Carbon Dioxide Level 25 mmol/L Anion Gap 8.0 mmol/L Blood Urea Nitrogen 10 mg/dl Creatinine 0.33 mg/dl Est Creatinine Clear Calc Drug Dose 131.2 ml/min Estimated GFR () 127.6 Estimated GFR (Non- 110.1 BUN/Creatinine Ratio 30.0 Random Glucose 97 mg/dl Calcium Level 7.7 mg/dl Phosphorus Level 3.0 mg/dl Magnesium Level mg/dl 1.9 mg/dl Mental Examination During interview pt is: other (tired, confused, oriented only to self.) Appearance: disheveled Eye contact is: poor Motor behavior is: no abnormal motor movements (other than mild jaw tremor) Speech: other (soft, poorly articulated) Affect: blunted Mood is: other (unable to answer) Thought process: concrete Hallucinations: other (did not appear to be responding to internal stimuli) Cognition: other (impaired) Insight: impaired Judgement: impaired Impression / Recommendations Impression 71 yo female with long hx of anxiety managed in primary care settings presents with delirium consistent with previous presentation of delirium. Recommendations reviewed that 4 mg daily of Xanax not ideal given age, combo with chronic pain meds. They are well aware of risks/benefits and she has tolerated well outside of acute infection/delirium and attempts to taper during delirium only worsened agitation in past. Doubt serotonin syndrome. I did confirm dosing of Effexor XR with [facility] as unusual. They are happy to follow up with their current providers and assists with overseeing her medication at home. Given QTc 476 would avoid Haldol if develops acute agitation. Would avoid use of additional benzos unless only route would be IV Ativan. I suspect she will clear with no specific intervention as improvement noted this pm compared to am but if condition worsens, would recommend Seroquel 12.5-25 mg prn for agitation/ combativeness acutely.
[2016-12-09 15:10] VITALS: BP 125/73; PULSE 80; TEMP 36.6; O2SAT 94
[2016-12-09] MEDS ORDERED: VANCOMYCIN TROUGH SCH (15:30)
[2016-12-09] MEDS: FENTANYL 100 MCG/HR TDSY TD SCH (17:07)
[2016-12-09] MEDS: FENTANYL PATCH REMOVE & WASTE SCH (17:12)
[2016-12-09] MEDS: SIMVASTATIN 40 MG TAB PO SCH (20:12)
[2016-12-09 20:39] VITALS: BP 109/71; PULSE 84; TEMP 36.5; O2SAT 95
[2016-12-10] VITALS: BP 157/92; PULSE 67; TEMP 36.6; O2SAT 96
[2016-12-10] MEDS: CHECK FENTANYL PATCH PLACEMENT SCH ×4 (00:15→23:50)
[2016-12-10 01:45] VITALS: O2SAT 95
[2016-12-10 07:48] VITALS: BP 139/81; PULSE 66; TEMP 36.4; O2SAT 94
[2016-12-10 08:00] VITALS: O2SAT 94
[2016-12-10] MEDS: FERROUS SULFATE 325 MG TAB PO SCH ×3 (08:42→18:07)
[2016-12-10] MEDS: GABAPENTIN 600 MG TAB PO SCH ×3 (08:42→19:48)
[2016-12-10] MEDS: NYSTATIN SUSP 500,000 U/5 ML UDC PO SCH ×3 (08:42→19:48)
[2016-12-10] MEDS: ALPRAZOLAM 0.5 MG TAB PO SCH ×4 (08:42→19:48)
[2016-12-10] MEDS: VERAPAMIL HCL 240 MG TABCR PO SCH (08:43)
[2016-12-10] MEDS: VENLAFAXINE HCL XR 75 MG CAPXR PO SCH ×3 (08:43→19:48)
[2016-12-10] MEDS: HEPARIN SOD 5000 UNIT/0.5 ML CARP SQ SCH ×2 (08:44→19:50)
--- NOTE | 2016-12-10 10:41 | Progress Note ---
Subjective Date of Service: Dec 10, 2016. (Milagros Beth PA-C) Date of Service: 12/10/16 agree with pa note pt is confused (yBron Hinton MD) Subjective Pt evaluation today including: conversation w/ patient, physical exam, chart review, lab review, review of inpatient medication list Patient seen and evaluated. No acute events overnight. Patient sitting up in chair. Oriented to self and knows she is in the hospital but not the name or why. Does have lucid moments however these are short-lived. Continues to think she just graduated and isn't . (Milagros Beth PA-C) Pt evaluation today including: conversation w/ patient, physical exam, chart review, lab review, review of studies, review of inpatient medication list ros cant be obtained (Byron Hinton MD) Problem List Medical Problems: (1) Altered mental status Status: Acute (2) Elevated troponin Status: Acute (3) Hypokalemia Status: Acute (4) Thrush Status: Acute (5) Weakness Status: Acute (Milagros Beth PA-C) Review of Systems Constitutional: No chills, No fever Respiratory: No cough, No shortness of breath Cardiac: No chest pain Abdomen: No nausea, No pain, No vomiting Female : No dysuria Skin: No rash (Milagros Beth PA-C) Medications Current Inpatient Medications Medications (Trade) Dose Ordered Sig/Nathan Route Start Time Stop Time Status Last Admin Dose Admin Potassium Chloride/Sodium Chloride (Nss + 20meq KCl 1000ml) 1,000 ml @ 80 mls/hr [id number] IV 12/06/16 19:30 01/05/17 19:29 12/09/16 21:59 80 MLS/HR Heparin Sodium (Porcine) (Heparin Sq 5000 Unit/0.5ml) 5,000 unit Q12 SQ 12/06/16 21:00 01/05/17 20:59 12/10/16 08:44 5,000 UNIT Acetaminophen (Tylenol Tab) 650 mg Q4H PRN PO 12/06/16 16:00 01/05/17 15:59 Ondansetron HCl (Zofran Inj) 4 mg Q6H PRN IV 12/06/16 16:00 01/05/17 15:59 Alprazolam (Xanax Tab) 1 mg QID PO 12/06/16 21:00 01/05/17 20:59 12/10/16 08:42 1 MG Docusate Sodium (coLACE CAP) 100 mg TID PRN PO 12/06/16 17:30 01/05/17 17:29 Fentanyl (Duragesic Patch) 100 mcg Q3D@1700 TD 12/06/16 17:00 12/20/16 16:59 12/09/16 17:07 100 MCG Gabapentin (Neurontin Tab) 600 mg TID PO 12/06/16 21:00 01/05/17 20:59 12/10/16 08:42 600 MG Simvastatin (Zocor Tab) 40 mg QPM PO 12/06/16 21:00 01/05/17 20:59 12/09/16 20:12 40 MG Venlafaxine HCl (effeXOR EXTENDED REL CAP) 75 mg TID PO 12/06/16 21:00 01/05/17 20:59 12/10/16 08:43 75 MG Verapamil HCl (Calan-Sr Tab) 240 mg DAILY PO 12/07/16 09:00 01/06/17 08:59 12/10/16 08:43 240 MG Ferrous Sulfate (Feosol Tab) 325 mg TIDM PO 12/06/16 18:00 01/05/17 17:59 12/10/16 08:42 325 MG Miscellaneous (Fentanyl Patch Remove & Waste) 1 ea Q3D@1659 N/A 12/06/16 16:59 01/05/17 16:58 12/09/16 17:12 1 EA Miscellaneous Information (Check Fentanyl Patch Placement) 1 ea QS N/A 12/06/16 16:00 01/05/17 15:59 12/10/16 08:45 1 EA Nystatin (Mycostatin Susp) 5 ml TID PO 12/06/16 21:00 12/16/16 20:59 12/10/16 08:42 5 ML (Milagros Beth PA-C) Objective Vital Signs Date Time Temp Pulse Resp B/P Pulse Ox O2 Delivery O2 Flow Rate FiO2 12/10/16 07:48 36.4 66 18 139/81 94 Room Air 12/10/16 01:45 95 Room Air 12/10/16 00:00 36.6 67 18 157/92 96 Room Air 12/09/16 20:39 36.5 84 24 109/71 95 Room Air 12/09/16 16:00 Room Air 12/09/16 15:10 36.6 80 16 125/73 94 12/09/16 11:31 36.3 61 16 128/93 92 Room Air (Milagros Beth PA-C) Physical Exam General Appearance: WD/WN, no apparent distress Eyes: sclerae normal ENT: hearing grossly normal Neck: supple, no JVD, trachea midline Respiratory/Chest: lungs clear, normal breath sounds, no respiratory distress, no accessory muscle use Cardiovascular: regular rate, rhythm, no gallop, no murmur Abdomen: normal bowel sounds, non tender, soft Extremities: no pedal edema, no calf tenderness Neurologic/Psychiatric: alert, + disoriented Skin: normal color, warm/dry (Milagros Beth, PA-C) General Appearance: WD/WN, no apparent distress Eyes: normal inspection ENT: hearing grossly normal Neck: supple Respiratory/Chest: chest non-tender Cardiovascular: regular rate, rhythm, no gallop Abdomen: normal bowel sounds Extremities: normal inspection Neurologic/Psychiatric: no motor/sensory deficits, + disoriented Skin: warm/dry (Byron Hinton MD) Assessment and Plan 71-year-old female presents emergency department with altered mental status, currently being treated for urinary tract infection, not eating or drinking at home Metabolic Encephalopathy vs Drug-Induced Encephalopathy: Dehydration vs UTI vs Polypharmacy - Wax and wanes with short moments of clarity - BCx - one pos appears contaminated; UCx - no growth - NSS + 20 mEq KCl at 80 cc/hr - Monitor with BMP Mild Troponin Elevation: Unlikely ACS - Repeats have normalized - Telemetry with notes of pauses with electrolytes abnormalities noted - electrolytes addressed Chronic Pain/Anxiety/Depression/Polypharmacy- reports no recent changes in meds. - Discussed current medications with who reports previous attempts to wean Xanax by cutting dose in half and patient did not tolerate well. -- Discussed the option of a slow wean as she has been dependent on this and that this is a high dose given patient age - Continue Fentanyl 100 mcg Q72H and Gabapentin 600 mg TID - would like to see this weaned as well again given age - Effexor 75 mg TID - Consult psychiatry - will continue current regimen DVT prophylaxis: Heparin 5000 BID SC Q12H TEDS, SCDs CODE STATUS: FULL CODE DISPO: - SNF placement - Would recommend outpatient follow-up with pain management for consideration of medication adjustments due to high dosing of narcotics/benzos and TID dosing of Effexor Discharge planning: nursing home facility (Milagros Beth, PAGhazalaC) 71-year-old female presents emergency department with altered mental status, currently being treated for urinary tract infection, not eating or drinking at home Metabolic Encephalopathy vs Drug-Induced Encephalopathy: Dehydration vs UTI vs Polypharmacy bl cx neg NSS + 20 mEq KCl at 80 cc/hr - Mild Troponin Elevation: Unlikely ACS telemetry with notes of pauses with electrolytes abnormalities noted - electrolytes addressed Chronic Pain/Anxiety/Depression/Polypharmacy- reports no recent changes in meds. need to cut xanax and fentanyl Continue Fentanyl 100 mcg Q72H and Gabapentin 600 mg TID , would like to see this weaned as well again given age Effexor 75 mg TID Consult psychiatry ,will continue current regimen? DVT prophylaxis: Heparin 5000 BID SC Q12H TEDS, SCDs CODE STATUS: FULL CODE SNF placement Would recommend outpatient follow-up with pain management for consideration of medication adjustments due to high dosing of narcotics/benzos and TID dosing of Effexor (Byron Hinton MD)
[2016-12-10] MEDS: NSS + 20MEQ KCL 1000ML 1,000 ML IV SCH (11:40)
[2016-12-10 16:00] VITALS: O2SAT 94
[2016-12-10 18:18] VITALS: BP 124/80; PULSE 85; TEMP 36.7; O2SAT 97
[2016-12-10] MEDS: SIMVASTATIN 40 MG TAB PO SCH (19:48)
[2016-12-10] MEDS ORDERED: NURSING VERBAL MED ORDER ONE (23:30)
[2016-12-11 07:30] VITALS: BP 127/78; PULSE 65; TEMP 36.4; O2SAT 96
[2016-12-11 08:00] VITALS: O2SAT 94
[2016-12-11 08:06] LABS: HEMATOCRIT 38.9 % (37-47); MEAN CELL VOLUME 89.2 fL (80-100); MEAN CORPUSCULAR HGB CONC 33.7 g/dl (32-36); MEAN PLATELET VOLUME 11.7 fL (7.4-10.4); PLATELET COUNT 165 K/uL (130-400); RED BLOOD COUNT 4.36 M/uL (4.2-5.4); WHITE BLOOD COUNT 6.24 K/uL (4.8-10.8)
[2016-12-11 08:35] LABS: CALCIUM 8.5 mg/dl (8.5-10.1); CREATININE 0.42 mg/dl (0.60-1.20); MAGNESIUM 1.9 mg/dl (1.8-2.4); PHOSPHORUS 3.3 mg/dl (2.5-4.9); POTASSIUM 3.4 mmol/L (3.5-5.1)
[2016-12-11] MEDS ORDERED: POTASSIUM CHLORIDE 10 MEQ TABCR PO ONE (09:00)
[2016-12-11] MEDS: ALPRAZOLAM 0.5 MG TAB PO SCH ×4 (09:15→20:01)
[2016-12-11] MEDS: FERROUS SULFATE 325 MG TAB PO SCH ×3 (09:15→17:51)
[2016-12-11] MEDS: GABAPENTIN 600 MG TAB PO SCH ×3 (09:16→20:01)
[2016-12-11] MEDS: VENLAFAXINE HCL XR 75 MG CAPXR PO SCH ×3 (09:16→20:01)
[2016-12-11] MEDS: NYSTATIN SUSP 500,000 U/5 ML UDC PO SCH ×3 (09:16→20:01)
[2016-12-11] MEDS: CHECK FENTANYL PATCH PLACEMENT SCH ×2 (09:17→16:00)
[2016-12-11] MEDS: VERAPAMIL HCL 240 MG TABCR PO SCH (09:17)
[2016-12-11] MEDS: HEPARIN SOD 5000 UNIT/0.5 ML CARP SQ SCH ×2 (09:19→20:23)
--- NOTE | 2016-12-11 13:49 | Progress Note ---
Subjective Date of Service: Dec 11, 2016. (Milagros Beth PA-C) Date of Service: 12/11/16 agree with PA note pt remains confused, ros cant be obtained (Byron Hinton MD) Subjective Pt evaluation today including: conversation w/ patient, physical exam, chart review, review of inpatient medication list Patient seen and evaluated. Pulled IV sites out overnight. Continues to be oriented to self only. Verbalizes no complaints at given time. (Milagros Beth PA-C) Problem List Medical Problems: (1) Altered mental status Status: Acute (2) Elevated troponin Status: Acute (3) Hypokalemia Status: Acute (4) Thrush Status: Acute (5) Weakness Status: Acute (Milagros Beth PA-C) Review of Systems Constitutional: No chills, No fever Respiratory: No shortness of breath Cardiac: No chest pain Abdomen: No nausea, No pain, No vomiting Female : No dysuria Endo: No fatigue (Milagros Beth PA-C) Medications Current Inpatient Medications Medications (Trade) Dose Ordered Sig/Nathan Route Start Time Stop Time Status Last Admin Dose Admin Heparin Sodium (Porcine) (Heparin Sq 5000 Unit/0.5ml) 5,000 unit Q12 SQ 12/06/16 21:00 01/05/17 20:59 12/11/16 09:19 5,000 UNIT Acetaminophen (Tylenol Tab) 650 mg Q4H PRN PO 12/06/16 16:00 01/05/17 15:59 Ondansetron HCl (Zofran Inj) 4 mg Q6H PRN IV 12/06/16 16:00 01/05/17 15:59 12/10/16 11:40 4 MG Alprazolam (Xanax Tab) 1 mg QID PO 12/06/16 21:00 01/05/17 20:59 12/11/16 12:15 1 MG Docusate Sodium (coLACE CAP) 100 mg TID PRN PO 12/06/16 17:30 01/05/17 17:29 Fentanyl (Duragesic Patch) 100 mcg Q3D@1700 TD 12/06/16 17:00 12/20/16 16:59 12/09/16 17:07 100 MCG Gabapentin (Neurontin Tab) 600 mg TID PO 12/06/16 21:00 01/05/17 20:59 12/11/16 12:16 600 MG Simvastatin (Zocor Tab) 40 mg QPM PO 12/06/16 21:00 01/05/17 20:59 12/10/16 19:48 40 MG Venlafaxine HCl (effeXOR EXTENDED REL CAP) 75 mg TID PO 12/06/16 21:00 01/05/17 20:59 12/11/16 12:16 75 MG Verapamil HCl (Calan-Sr Tab) 240 mg DAILY PO 12/07/16 09:00 01/06/17 08:59 12/11/16 09:17 240 MG Ferrous Sulfate (Feosol Tab) 325 mg TIDM PO 12/06/16 18:00 01/05/17 17:59 12/11/16 12:16 325 MG Miscellaneous (Fentanyl Patch Remove & Waste) 1 ea Q3D@1659 N/A 12/06/16 16:59 01/05/17 16:58 12/09/16 17:12 1 EA Miscellaneous Information (Check Fentanyl Patch Placement) 1 ea QS N/A 12/06/16 16:00 01/05/17 15:59 12/11/16 09:17 1 EA Nystatin (Mycostatin Susp) 5 ml TID PO 12/06/16 21:00 12/16/16 20:59 12/11/16 12:16 5 ML (Milagros Beth PA-C) Objective Vital Signs Date Time Temp Pulse Resp B/P Pulse Ox O2 Delivery O2 Flow Rate FiO2 12/11/16 08:00 94 Room Air 12/11/16 07:30 36.4 65 16 127/78 96 Room Air 12/11/16 00:01 Room Air 12/10/16 20:00 Room Air 12/10/16 18:18 36.7 85 18 124/80 97 Room Air 12/10/16 16:00 94 Room Air (Milagros Beth PA-C) Physical Exam General Appearance: WD/WN, no apparent distress Eyes: sclerae normal ENT: hearing grossly normal Neck: supple, no JVD, trachea midline Respiratory/Chest: lungs clear, normal breath sounds, no respiratory distress, no accessory muscle use Cardiovascular: regular rate, rhythm, no gallop, no murmur Abdomen: normal bowel sounds, non tender, soft Extremities: non-tender Neurologic/Psychiatric: alert, + disoriented Skin: normal color, warm/dry (Milagros Beth PA-C) General Appearance: WD/WN, no apparent distress Eyes: normal inspection, EOMI ENT: hearing grossly normal, pharynx normal Neck: supple, no JVD Respiratory/Chest: chest non-tender, lungs clear Cardiovascular: regular rate, rhythm, no gallop Abdomen: normal bowel sounds, soft Extremities: non-tender Neurologic/Psychiatric: + disoriented Skin: normal color (Byron Hinton MD) Laboratory Results Last 24 Hours Test 12/11/16 07:45 White Blood Count 6.24 K/uL Red Blood Count 4.36 M/uL Hemoglobin 13.1 g/dL Hematocrit 38.9 % Mean Corpuscular Volume 89.2 fL Mean Corpuscular Hemoglobin 30.0 pg Mean Corpuscular Hemoglobin Concent 33.7 g/dl RDW Standard Deviation 43.1 fL RDW Coefficient of Variation 13.2 % Platelet Count 165 K/uL Mean Platelet Volume 11.7 fL Sodium Level 141 mmol/L Potassium Level 3.4 mmol/L Chloride Level 105 mmol/L Carbon Dioxide Level 31 mmol/L Anion Gap 5.0 mmol/L Blood Urea Nitrogen 9 mg/dl Creatinine 0.42 mg/dl Est Creatinine Clear Calc Drug Dose 103.0 ml/min Estimated GFR () 117.9 Estimated GFR (Non- 101.7 BUN/Creatinine Ratio 21.0 Random Glucose 96 mg/dl Calcium Level 8.5 mg/dl Phosphorus Level 3.3 mg/dl Magnesium Level 1.9 mg/dl (Milagros Beth, PA-C) Assessment and Plan 71-year-old female presents emergency department with altered mental status, currently being treated for urinary tract infection, not eating or drinking at home Metabolic Encephalopathy vs Drug-Induced Encephalopathy: Dehydration vs UTI vs Polypharmacy - Wax and wanes with short moments of clarity - BCx - one pos appears contaminated; UCx - no growth - Fluids D/C'd Mild Troponin Elevation: Unlikely ACS - Repeats have normalized - Telemetry with notes of pauses with electrolytes abnormalities noted - electrolytes addressed - moved to Med/Surg Chronic Pain/Anxiety/Depression/Polypharmacy- reports no recent changes in meds. - Discussed current medications with who reports previous attempts to wean Xanax by cutting dose in half and patient did not tolerate well. -- Discussed the option of a slow wean as she has been dependent on this and that this is a high dose given patient age - Continue Fentanyl 100 mcg Q72H and Gabapentin 600 mg TID - would like to see this weaned as well again given age - Effexor 75 mg TID - Consult psychiatry - will continue current regimen DVT prophylaxis: Heparin 5000 BID SC Q12H TEDS, SCDs CODE STATUS: FULL CODE DISPO: - SNF placement - hopeful improvement in mentation established for placement - Would recommend outpatient follow-up with pain management for consideration of medication adjustments due to high dosing of narcotics/benzos and TID dosing of Effexor Discharge planning: nursing home facility (Milagros Beth PA-C) 71-year-old female presents emergency department with altered mental status, currently being treated for urinary tract infection, not eating or drinking at home Metabolic Encephalopathy vs Drug-Induced Encephalopathy: Dehydration vs UTI vs Polypharmacy 1/2 BCx positive, appears contaminated; Ur Cx, no growth Fluids D/C'd Mild Troponin Elevation: Unlikely ACS, trended down CE Chronic Pain/Anxiety/Depression/Polypharmacy- reports no recent changes in meds. Discussed current medications with who reports previous attempts to wean Xanax by cutting dose in half and patient did not tolerate well. Discussed the option of a slow wean as she has been dependent on this and that this is a high dose given patient age Continue Fentanyl 100 mcg Q72H and Gabapentin 600 mg TID - would like to see this weaned as well again given age Effexor 75 mg TID Consult psychiatry, will continue current regimen DVT prophylaxis: Heparin 5000 BID SC Q12H TEDS, SCDs FULL CODE SNF placement, hopefully early next week, would recommend outpatient follow-up with pain management for consideration of medication adjustments due to high dosing of narcotics/benzos and TID dosing of Effexor (Byron Hinton MD)
[2016-12-11 15:42] VITALS: BP 102/65; PULSE 77; TEMP 36.3; O2SAT 94
[2016-12-11 16:45] VITALS: O2SAT 94
[2016-12-11] MEDS: SIMVASTATIN 40 MG TAB PO SCH (20:18)
[2016-12-12] VITALS: O2SAT 95
[2016-12-12 00:22] VITALS: BP 127/71; PULSE 75; TEMP 36.9; O2SAT 95
[2016-12-12] MEDS: QUETIAPINE FUMARATE 25 MG TAB PO PRN (01:23)
[2016-12-12 08:00] VITALS: O2SAT 94
[2016-12-12] MEDS: ALPRAZOLAM 0.5 MG TAB PO SCH ×4 (08:00→20:55)
[2016-12-12] MEDS: NYSTATIN SUSP 500,000 U/5 ML UDC PO SCH ×3 (08:47→20:55)
[2016-12-12] MEDS: VERAPAMIL HCL 240 MG TABCR PO SCH (08:47)
[2016-12-12] MEDS: FERROUS SULFATE 325 MG TAB PO SCH ×3 (08:47→17:26)
[2016-12-12] MEDS: VENLAFAXINE HCL XR 75 MG CAPXR PO SCH ×3 (08:47→20:55)
[2016-12-12] MEDS: GABAPENTIN 600 MG TAB PO SCH ×3 (08:47→20:55)
[2016-12-12] MEDS: HEPARIN SOD 5000 UNIT/0.5 ML CARP SQ SCH ×2 (08:49→21:02)
[2016-12-12] MEDS: CHECK FENTANYL PATCH PLACEMENT SCH ×4 (08:50→23:55)
[2016-12-12 10:22] LABS: HEMATOCRIT 37.3 % (37-47); MEAN CELL VOLUME 89.4 fL (80-100); MEAN CORPUSCULAR HEMOGLOBIN 29.7 pg (25-34); MEAN CORPUSCULAR HGB CONC 33.2 g/dl (32-36); MEAN PLATELET VOLUME 11.5 fL (7.4-10.4); PLATELET COUNT 184 K/uL (130-400); RED BLOOD COUNT 4.17 M/uL (4.2-5.4)
[2016-12-12 10:51] LABS: BUN/CREATININE RATIO 25.1 (10-20); CALCIUM 8.5 mg/dl (8.5-10.1); CREATININE 0.55 mg/dl (0.60-1.20); MAGNESIUM 2.2 mg/dl (1.8-2.4); POTASSIUM 4.3 mmol/L (3.5-5.1)
--- NOTE | 2016-12-12 10:58 | Progress Note ---
Subjective Date of Service: Dec 12, 2016. (Milagros Beth PA-C) Subjective Pt evaluation today including: conversation w/ patient, conversation w/ family (), physical exam, chart review, lab review, review of studies, review of inpatient medication list Patient seen and evaluated. Patient combative overnight and sleeping through morning. Required dose of Seroquel due to combativeness. Currently alert and oriented to self only. Long discussion with to evaluate baseline mentation Patient believes she just graduated and is Valedictorian, , and has a boyfriend. states that all of this is true stories that collaborates with the timeline of their relationship. She is normally easily agitated at home and nighttime sometimes worsens suggesting sundowning. However, patient's denies memory deficits or functional decline suggesting an underlying dementia. Given the agitation it does seem like there is something underlying that family is not necessarily accepted and aware of. He denies direct psychiatric history. States her father prior to her and mother was overbearing and over protective. She did not allow her to be social and required the patient to sleep in the same bed as her mother up into [place]. Since then patient has been to herself and never really social. They met at a wedding when he was 15 and she was 12 and then wrote letters for a long time and it wasn't until she was older that their relationship started. Patient appears to be living in the past and does not think she is 71 years old. Per nursing staff, patient saw her reflection and said it was her however she couldn 't say why she looked different. Question underlying psychiatric conditions and more than likely baseline dementia. Will attempt to call PCP to get objective opinions to patient's baseline mentation. Spoke with PCP's nurse. Reports patient is alert and oriented at baseline. Largely allows to do the talking and confirms easy agitation. States when calls in for AMS or hallucinations a U/A is ran and always is the culprit and symptoms resolve with treatment. (Milagros Beth, LESLYE) Problem List Medical Problems: (1) Altered mental status Status: Acute (2) Elevated troponin Status: Acute (3) Hypokalemia Status: Acute (4) Thrush Status: Acute (5) Weakness Status: Acute (Milagros Beth, PA-C) Review of Systems Deferred given AMS. (Milagros Beth PA-C) Medications Current Inpatient Medications Medications (Trade) Dose Ordered Sig/Nathan Route Start Time Stop Time Status Last Admin Dose Admin Heparin Sodium (Porcine) (Heparin Sq 5000 Unit/0.5ml) 5,000 unit Q12 SQ 12/06/16 21:00 01/05/17 20:59 12/12/16 08:49 5,000 UNIT Acetaminophen (Tylenol Tab) 650 mg Q4H PRN PO 12/06/16 16:00 01/05/17 15:59 Ondansetron HCl (Zofran Inj) 4 mg Q6H PRN IV 12/06/16 16:00 01/05/17 15:59 12/10/16 11:40 4 MG Alprazolam (Xanax Tab) 1 mg QID PO 12/06/16 21:00 01/05/17 20:59 12/11/16 20:01 1 MG Docusate Sodium (coLACE CAP) 100 mg TID PRN PO 12/06/16 17:30 01/05/17 17:29 Fentanyl (Duragesic Patch) 100 mcg Q3D@1700 TD 12/06/16 17:00 12/20/16 16:59 12/09/16 17:07 100 MCG Gabapentin (Neurontin Tab) 600 mg TID PO 12/06/16 21:00 01/05/17 20:59 12/12/16 08:47 600 MG Simvastatin (Zocor Tab) 40 mg QPM PO 12/06/16 21:00 01/05/17 20:59 12/11/16 20:18 40 MG Venlafaxine HCl (effeXOR EXTENDED REL CAP) 75 mg TID PO 12/06/16 21:00 01/05/17 20:59 12/12/16 08:47 75 MG Verapamil HCl (Calan-Sr Tab) 240 mg DAILY PO 12/07/16 09:00 01/06/17 08:59 12/12/16 08:47 240 MG Ferrous Sulfate (Feosol Tab) 325 mg TIDM PO 12/06/16 18:00 01/05/17 17:59 12/12/16 11:33 325 MG Miscellaneous (Fentanyl Patch Remove & Waste) 1 ea Q3D@1659 N/A 12/06/16 16:59 01/05/17 16:58 12/09/16 17:12 1 EA Miscellaneous Information (Check Fentanyl Patch Placement) 1 ea QS N/A 12/06/16 16:00 01/05/17 15:59 12/12/16 08:50 1 EA Nystatin (Mycostatin Susp) 5 ml TID PO 12/06/16 21:00 12/16/16 20:59 12/12/16 08:47 5 ML Quetiapine Fumarate (seroQUEL TAB) 25 mg Q12H PRN PO 12/12/16 00:45 01/11/17 00:44 12/12/16 01:23 25 MG (Milagros Beth PA-C) Objective Vital Signs Date Time Temp Pulse Resp B/P Pulse Ox O2 Delivery O2 Flow Rate FiO2 12/12/16 08:00 94 Room Air 12/12/16 00:22 36.9 75 20 127/71 95 Room Air 12/12/16 00:00 95 Room Air 12/11/16 16:45 94 Room Air 12/11/16 15:42 36.3 77 18 102/65 94 Room Air (Milagros Beth PA-C) Physical Exam General Appearance: WD/WN, no apparent distress Eyes: sclerae normal ENT: hearing grossly normal Neck: supple, no JVD, trachea midline Respiratory/Chest: lungs clear, normal breath sounds, no respiratory distress, no accessory muscle use Cardiovascular: regular rate, rhythm, no gallop, no murmur Abdomen: normal bowel sounds, non tender, soft Extremities: no pedal edema Neurologic/Psychiatric: alert, + disoriented Skin: normal color (Milagros Beth, MARISABEL-C) Laboratory Results Last 24 Hours Test 12/12/16 10:08 White Blood Count 7.40 K/uL Red Blood Count 4.17 M/uL Hemoglobin 12.4 g/dL Hematocrit 37.3 % Mean Corpuscular Volume 89.4 fL Mean Corpuscular Hemoglobin 29.7 pg Mean Corpuscular Hemoglobin Concent 33.2 g/dl RDW Standard Deviation 43.8 fL RDW Coefficient of Variation 13.5 % Platelet Count 184 K/uL Mean Platelet Volume 11.5 fL Sodium Level 144 mmol/L Potassium Level 4.3 mmol/L Chloride Level 106 mmol/L Carbon Dioxide Level 31 mmol/L Anion Gap 7.0 mmol/L Creatinine 0.55 mg/dl Est Creatinine Clear Calc Drug Dose 78.7 ml/min Estimated GFR () 107.8 Estimated GFR (Non- 93.1 BUN/Creatinine Ratio 25.1 Random Glucose 93 mg/dl Calcium Level 8.5 mg/dl Magnesium Level 2.2 mg/dl (Milagros Beth PA-C) Assessment and Plan 71-year-old female presents emergency department with altered mental status, currently being treated for urinary tract infection, not eating or drinking at home Metabolic Encephalopathy vs Drug-Induced Encephalopathy: Dehydration vs UTI vs Polypharmacy - Question underlying psychiatric conditions vs dementia as patient continues to be disoriented and remains consistent with her stories but overall no improvement. -- More agitation overnight that required use of Seroquel - BCx - one pos appears contaminated; UCx - no growth - Fluids D/C'd - Will re-run UA - TSH, B12, Folate - WNL - Consult Neurology - question of Lewy Body Dementia - MRI? Mild Troponin Elevation: Unlikely ACS - Repeats have normalized - Telemetry with notes of pauses with electrolytes abnormalities noted - electrolytes addressed - moved to Med/Surg Chronic Pain/Anxiety/Depression/Polypharmacy- reports no recent changes in meds. - Discussed current medications with who reports previous attempts to wean Xanax by cutting dose in half and patient did not tolerate well. -- Discussed the option of a slow wean as she has been dependent on this and that this is a high dose given patient age - Continue Fentanyl 100 mcg Q72H and Gabapentin 600 mg TID - would like to see this weaned as well again given age - Effexor 75 mg TID - Consult psychiatry - will continue current regimen DVT prophylaxis: Heparin 5000 BID SC Q12H TEDS, SCDs CODE STATUS: FULL CODE DISPO: - SNF placement - hopeful improvement in mentation established for placement - Would recommend outpatient follow-up with pain management for consideration of medication adjustments due to high dosing of narcotics/benzos and TID dosing of Effexor Discharge planning: longterm facility (Milagros Beth PA-C) ATTENDING ATTESTATION I have seen and examined patient this am. I have discussed plan of care in detail with LESLYE and agree with plan as stated above. Patient agitated overnight requiring seroquel currently AOx3 Vitals-reviewed GEN- NAD CVS-RRR RESP-CTA ABD-CTA EXT- no edema Labs-reviewed Encephalopathy -do not suspect infectious, check MRI, appreciate neurology input, niall barnes (Milagros Fatima MD)
[2016-12-12 11:04] LABS: THYROID STIMULATING HORMONE 1.18 uIu/ml (0.300-4.500)
[2016-12-12 11:24] VITALS: BP 136/82; PULSE 81; TEMP 36.4; O2SAT 96
[2016-12-12] MEDS ORDERED: SODIUM CHLORIDE 0.9% 500ML 500 ML IV SCH (14:00)
[2016-12-12] MEDS: ACETAMINOPHEN 325 MG TAB PO PRN (14:22)
[2016-12-12 14:56] VITALS: BP 115/74; PULSE 95; TEMP 36.7; O2SAT 98
[2016-12-12 16:00] VITALS: BP 136/83; PULSE 98; TEMP 36.9; O2SAT 96
--- NOTE | 2016-12-12 16:59 | Psychiatric Progress Notes ---
Psychiatric Progress Note Date of Service Dec 12, 2016. Notes ID: Patient reviewed with liaison nurse. Interim progress reviewed. CC: sedated this am HPI: attempted to see patient this am, she was sleeping and difficult to arouse , I assume from prn Seroquel. ROS: patient unable to complete MSE: lying in bed, mouth open, breathing loud but not labored, no restlessness or significant dystonia Imp: delirium Plan: suspect some minimization of baseline cognitive deficit but hx of UTI related delirium taking 1 week or more to resolve saw that current plan includes search for SNF, ideally Xanax taper could be initiated slowly (o.25 mg decrease in total daily dose every few days) if sedation persists here, may need to start taper sooner (would need readdressed with ) if needing Seroquel prn more regularly, would support 12.5 mg 1-2 times a day standing order (family hoping to avoid) with sooner initiation of Xanax taper, liaison to follow
[2016-12-12] MEDS: FENTANYL PATCH REMOVE & WASTE SCH (17:22)
[2016-12-12] MEDS: FENTANYL 100 MCG/HR TDSY TD SCH (17:23)
[2016-12-12 20:08] LABS: URINE APPEARANCE CLEAR (CLEAR); URINE BILIRUBIN NEG (NEG); URINE COLOR YELLOW; URINE EPITHELIAL CELL AUTO 20-30 /lpf (0-5); URINE NITRITE POS (NEG); URINE SPECIFIC GRAVITY 1.012 (1.000-1.030); UROBILINOGEN NEG (NEG); ZZUR CULT IF INDIC CLEAN CATCH YES
[2016-12-12 20:10] LABS: MANUAL MICROSCOPIC REQUIRED? NO; REVIEW REQ? NO
[2016-12-12] MEDS: SIMVASTATIN 40 MG TAB PO SCH (20:57)
[2016-12-13] VITALS: BP 115/66; PULSE 87; TEMP 36.6; O2SAT 94; O2SAT 97
[2016-12-13] MEDS ORDERED: GADAVIST IV PRN (00:15)
--- NOTE | 2016-12-13 07:23 | DIAGNOSTIC IMAGING REPORT ---
MRI OF THE BRAIN COMBO CLINICAL HISTORY: Change in mental status. Dementia. COMPARISON STUDY: CT of the brain dated 12/08/2016. TECHNIQUE: MRI of the brain was performed utilizing various T1 and T2-weighted sequences in the axial, sagittal, and coronal planes. Contrast-enhanced sequences were acquired following the administration of 6 cc of Gadavist. The examination is significant degraded by motion artifact. FINDINGS: Brain parenchyma: There are age-related involutional changes noting moderate patchy subcortical and periventricular microangiopathic disease. There is no hemorrhage or mass effect. There is no restricted diffusion to suggest acute ischemia. No enhancing mass lesion is identified on the postcontrast images. Chronic lacunar infarcts are noted in the leonard. Lovett-white matter differentiation is preserved. No extra-axial fluid collection is seen. The cerebellar tonsils are normal in configuration. Ventricles, sulci, and cisterns: Prominent secondary to involutional change. Pituitary and sella: Unremarkable. Intracranial vasculature: Normal flow voids are maintained at the skull base. Orbits: The bony orbits are grossly intact. Orbital contents are normal in appearance noting bilateral ocular lens implants. Sinuses and mastoids: Clear. Calvarium: Unremarkable. Cervical cord: Partially visualized cervical spinal cord is normal in morphology and signal intensity. IMPRESSION: 1. Motion degraded examination. 2. Senescent changes as above with no hemorrhage, enhancing mass, or evidence of acute ischemia. Electronically signed by: Bret Palmer M.D. 12/13/2016 7:22 AM Dictated Date/Time: 12/13/2016 7:18 AM
[2016-12-13 07:51] VITALS: BP 108/72; PULSE 66; TEMP 36.8; O2SAT 96
--- NOTE | 2016-12-13 08:21 | Neurology Consultation ---
Neurology Consultation Date of Consultation: Dec 13, 2016. Attending Physician: Byron Hinton MD Primary Care Physician: Lesvia Toure M.D. Reason for Consultation: Consultation for dementia, possible dementia with Lewy bodies? History of Present Illness Source: hospital records The patient is a 71-year-old male who was admitted to [facility] on December 07 with agitated delirium characterized by confusion, suspected hallucinations whereby the patient was calling out the name "Ethan," and had difficulty formulating sentences with associated generalized weakness and recent treatment for a possible recurrent urinary tract infection. The patient was evaluated by Dr. Anderson, psychiatry, on the . The patient's had indicated that she has behaved similarly in the past in the context of UTI. He apparently denied any known previous history of dementia or significant cognitive disorder in his . She apparently did not recognize her , thought she was 16 years old and . The patient reportedly follows with a pain management physician who has been prescribing Effexor, Xanax , and Duragesic. History is notable for a chronic jaw tremor. There is no known history of alcohol abuse. I reviewed the images and radiologist's interpretation of the brain MRI completed yesterday afternoon. There is no evidence of stroke, hemorrhage, or other acute process. There is significant atrophy affecting primarily the frontal and temporal lobes bilaterally to a much greater degree on the left, especially the left matt-insular region. There is a minimal degree of chronic small vessel ischemic change within the cerebral hemispheres. Ventricular size is within normal limits and commensurate with a degree of generalized atrophy. The hippocampi are not severely atrophic. The patient exhibits significant confusion and is an unreliable historian. She does not provide any specific complaints and does not answer questions in a reliable fashion. Past Medical/Surgical History Medical Problems: (1) Altered mental status Status: Acute (2) Elevated troponin Status: Acute (3) Hypokalemia Status: Acute (4) Thrush Status: Acute (5) Weakness Status: Acute Family History Unknown and probably of limited value at this time, in the context of this patient's current illness Social History Marital Status: Housing Status: lives with family Occupation Status: employed Allergies Coded Allergies: Penicillins (Verified Allergy, Intermediate, 11/17/16) RASH Ampicillin (Verified Allergy, Unknown, RASH, 11/17/16) Current Inpatient Medications Current Inpatient Medications Medications (Trade) Dose Ordered Sig/Nathan Route Start Time Stop Time Status Last Admin Dose Admin Heparin Sodium (Porcine) (Heparin Sq 5000 Unit/0.5ml) 5,000 unit Q12 SQ 12/06/16 21:00 01/05/17 20:59 12/12/16 21:02 5,000 UNIT Acetaminophen (Tylenol Tab) 650 mg Q4H PRN PO 12/06/16 16:00 01/05/17 15:59 12/12/16 14:22 650 MG Ondansetron HCl (Zofran Inj) 4 mg Q6H PRN IV 12/06/16 16:00 01/05/17 15:59 12/10/16 11:40 4 MG Alprazolam (Xanax Tab) 1 mg QID PO 12/06/16 21:00 01/05/17 20:59 12/12/16 20:55 1 MG Docusate Sodium (coLACE CAP) 100 mg TID PRN PO 12/06/16 17:30 01/05/17 17:29 Fentanyl (Duragesic Patch) 100 mcg Q3D@1700 TD 12/06/16 17:00 12/20/16 16:59 12/12/16 17:23 100 MCG Gabapentin (Neurontin Tab) 600 mg TID PO 12/06/16 21:00 01/05/17 20:59 12/12/16 20:55 600 MG Simvastatin (Zocor Tab) 40 mg QPM PO 12/06/16 21:00 01/05/17 20:59 12/12/16 20:57 40 MG Venlafaxine HCl (effeXOR EXTENDED REL CAP) 75 mg TID PO 12/06/16 21:00 01/05/17 20:59 12/12/16 20:55 75 MG Verapamil HCl (Calan-Sr Tab) 240 mg DAILY PO 12/07/16 09:00 01/06/17 08:59 12/12/16 08:47 240 MG Ferrous Sulfate (Feosol Tab) 325 mg TIDM PO 12/06/16 18:00 01/05/17 17:59 12/12/16 17:26 325 MG Miscellaneous (Fentanyl Patch Remove & Waste) 1 ea Q3D@1659 N/A 12/06/16 16:59 01/05/17 16:58 12/12/16 17:22 1 EA Miscellaneous Information (Check Fentanyl Patch Placement) 1 ea QS N/A 12/06/16 16:00 01/05/17 15:59 12/12/16 23:55 1 EA Nystatin (Mycostatin Susp) 5 ml TID PO 12/06/16 21:00 12/16/16 20:59 12/12/16 20:55 5 ML Quetiapine Fumarate (seroQUEL TAB) 25 mg Q12H PRN PO 12/12/16 00:45 01/11/17 00:44 12/12/16 01:23 25 MG Gadobutrol (Gadavist) 6 mmol UD PRN IV 12/13/16 00:15 12/17/16 00:14 Review of Systems Unable to obtain review of systems in a reliable fashion from this significantly confused patient Physical Exam Vital Signs (Past 24 Hrs): Date Time Temp Pulse Resp B/P Pulse Ox O2 Delivery O2 Flow Rate FiO2 12/13/16 07:51 36.8 66 18 108/72 96 Room Air 12/13/16 07:31 Room Air 12/13/16 00:00 94 Room Air 12/13/16 00:00 36.6 87 20 115/66 97 Room Air 12/12/16 16:00 Room Air 12/12/16 16:00 36.9 98 18 136/83 96 Nasal Cannula 2.0 12/12/16 14:56 36.7 95 20 115/74 98 Room Air 12/12/16 11:24 36.4 81 18 136/82 96 Room Air The patient is an elderly, chronically ill-appearing, female, she is lying in bed, mildly agitated. She is alert and oriented to person only. She is unable to provide sustained attention. Concentration impaired. Unable to follow multistep commands. Intact praxis for simple gestures such as saluting as well as for simple tasks such as mimicking use of a scissors as well as use of a hammer a nail. Had difficulty with multistep commands. Short-term memory markedly impaired, 0/3 with delayed recall. Working memory impaired, unable to spell world backwards or perform serial sevens. Unable to perform simple mathematic computations. Language impairment noted as well. Difficulty with object naming appreciated. Difficulty with reading simple text appreciated. Difficulty repeating simple phrases. Gen. fund of knowledge limited. Comprehension of simple vocabulary seems to be adequate. Visual mccain full to confrontation. Pupils equal round reactive to light and accommodation. Eye movements intact. No nystagmus. Facial sensation intact. There is mild weakness of the left upper and lower facial musculature. An intermittent perioral tremor is observed. Hearing intact. Shoulder shrug strength intact. Palate elevates to midline. Tongue protrudes to midline. Sensation grossly intact to light touch for all 4 limbs although examination is limited due to poor patient attention. Patient is able to perform finger to nose bilaterally. Movements are not grossly dysmetria or ataxic. She exhibits some degree of difficulty with heel to garrison bilaterally possibly due to generalized weakness. Deep tendon reflexes are 1+ for the upper and lower extremities bilaterally. Plantar responses upgoing bilaterally. The patient does not cooperate for ophthalmoscopic examination. Unable to adequately visualize the optic nerves and posterior elements. Carotid pulses normal bilaterally, no bruits to auscultation. Musculoskeletal examination reveals mild generalized diffuse weakness. Muscle tone is normal throughout. There is no rigidity or spasticity. The limbs are flaccid. The patient does not exhibit obvious abnormal movements of the limbs. No tremors or dyskinesias of the limbs. No myoclonic movements. No fasciculations of the limbs. Gait could not be tested. Laboratory Results Past 24 Hours: 12/12/16 10:08 12/12/16 10:08 Test 12/12/16 10:08 12/12/16 19:44 Red Blood Count 4.17 M/uL (4.2-5.4) Mean Corpuscular Volume 89.4 fL (80-100) Mean Corpuscular Hemoglobin 29.7 pg (25-34) Mean Corpuscular Hemoglobin Concent 33.2 g/dl (32-36) RDW Standard Deviation 43.8 fL (36.4-46.3) RDW Coefficient of Variation 13.5 % (11.5-14.5) Mean Platelet Volume 11.5 fL (7.4-10.4) Anion Gap 7.0 mmol/L (3-11) Est Creatinine Clear Calc Drug Dose 78.7 ml/min Estimated GFR () 107.8 Estimated GFR (Non- 93.1 BUN/Creatinine Ratio 25.1 (10-20) Calcium Level 8.5 mg/dl (8.5-10.1) Magnesium Level 2.2 mg/dl (1.8-2.4) Vitamin B12 Level 618 pg/mL (211-911) Folate 13.12 ng/mL (>5.38) Thyroid Stimulating Hormone (TSH) 1.180 uIu/ml (0.300-4.500) Urine Color YELLOW Urine Appearance CLEAR (CLEAR) Urine pH 7.0 (4.5-7.5) Urine Specific [place] 1.012 (1.000-1.030) Urine Protein NEG (NEG) Urine Glucose (UA) NEG (NEG) Urine Ketones NEG (NEG) Urine Occult Blood NEG (NEG) Urine Nitrite POS (NEG) Urine Bilirubin NEG (NEG) Urine Urobilinogen NEG (NEG) Urine Leukocyte Esterase SMALL (NEG) Urine WBC (Auto) 5-10 /hpf (0-5) Urine RBC (Auto) 5-10 /hpf (0-4) Urine Hyaline Casts (Auto) 0 /lpf (0-5) Urine Epithelial Cells (Auto) 20-30 /lpf (0-5) Urine Bacteria (Auto) 4+ (NEG) Impression Probable underlying dementia. Bedside neurocognitive testing suggests problems with short-term memory function including delayed recall and working memory. The patient also exhibits prominent difficulty with language function including elements of expressive aphasia. An element of executive dysfunction is also likely present but difficult to fully evaluate in the context of her problems with memory and language. 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 Behavioral variant frontotemporal dementia cannot be excluded. Alzheimer's dementia is also possible although not strongly suggested on imaging. Dementia with Lewy bodies is not strongly suspected in this individual at this time. The presence of significant atrophy of the frontal and temporal lobes potentially excludes dementia with Lewy bodies based on current diagnostic criteria. Plan Treatment options for dementia are limited and largely consist of cholinesterase inhibitors and/or NMDA receptor antagonists. Furthermore, there is no commonly accepted treatment for frontotemporal dementias. However, I think a trial of donepezil 5 mg at bedtime is reasonable. Psychiatry will continue to assist with managing this patient's behavior. A low dosage of Seroquel is probably reasonable and can be useful to address significant sleep disruption related to agitation. No further immediate recommendations from a neurological standpoint. May follow-up in the outpatient clinic.
[2016-12-13] MEDS: FERROUS SULFATE 325 MG TAB PO SCH ×3 (09:23→17:22)
[2016-12-13] MEDS: GABAPENTIN 600 MG TAB PO SCH ×4 (09:23→19:41)
[2016-12-13] MEDS: VERAPAMIL HCL 240 MG TABCR PO SCH (09:24)
[2016-12-13] MEDS: VENLAFAXINE HCL XR 75 MG CAPXR PO SCH ×4 (09:24→19:41)
[2016-12-13] MEDS: NYSTATIN SUSP 500,000 U/5 ML UDC PO SCH ×4 (09:24→19:41)
[2016-12-13] MEDS: ALPRAZOLAM 0.5 MG TAB PO SCH ×3 (09:30→17:22)
[2016-12-13] MEDS: HEPARIN SOD 5000 UNIT/0.5 ML CARP SQ SCH ×2 (09:34→21:00)
[2016-12-13] MEDS: CHECK FENTANYL PATCH PLACEMENT SCH ×2 (09:38→16:21)
[2016-12-13 15:10] VITALS: BP 117/76; PULSE 90; TEMP 36.6; O2SAT 97
[2016-12-13] MEDS: ACETAMINOPHEN 325 MG TAB PO PRN (17:23)
--- NOTE | 2016-12-13 17:56 | Hospitalist Progress Note ---
Hospitalist Progress Note Date of Service Dec 13, 2016. Subjective Pt evaluation today including: conversation w/ patient, physical exam, chart review, lab review, review of studies, review of inpatient medication list Patient had no episodes of agitation overnight Patient continues to be alert however confused Denies any chest pain, SOB Constitutional: No fever Eyes: No worsening of vision ENT: No hearing loss Respiratory: No cough Cardiovascular: No chest pain Abdomen: No constipation, No pain, No vomiting Musculoskeletal: No joint pain Female : No dysuria Neurologic: No memory loss Psychiatric: No depression symptoms Endo: No fatigue Medications Current Inpatient Medications Medications (Trade) Dose Ordered Sig/Nathan Route Start Time Stop Time Status Last Admin Dose Admin Heparin Sodium (Porcine) (Heparin Sq 5000 Unit/0.5ml) 5,000 unit Q12 SQ 12/06/16 21:00 01/05/17 20:59 12/13/16 09:34 5,000 UNIT Acetaminophen (Tylenol Tab) 650 mg Q4H PRN PO 12/06/16 16:00 01/05/17 15:59 12/13/16 17:23 650 MG Ondansetron HCl (Zofran Inj) 4 mg Q6H PRN IV 12/06/16 16:00 01/05/17 15:59 12/10/16 11:40 4 MG Alprazolam (Xanax Tab) 1 mg QID PO 12/06/16 21:00 01/05/17 20:59 12/13/16 17:22 1 MG Docusate Sodium (coLACE CAP) 100 mg TID PRN PO 12/06/16 17:30 01/05/17 17:29 Fentanyl (Duragesic Patch) 100 mcg Q3D@1700 TD 12/06/16 17:00 12/20/16 16:59 12/12/16 17:23 100 MCG Gabapentin (Neurontin Tab) 600 mg TID PO 12/06/16 21:00 01/05/17 20:59 12/13/16 09:23 600 MG Simvastatin (Zocor Tab) 40 mg QPM PO 12/06/16 21:00 01/05/17 20:59 12/12/16 20:57 40 MG Venlafaxine HCl (effeXOR EXTENDED REL CAP) 75 mg TID PO 12/06/16 21:00 01/05/17 20:59 12/13/16 09:24 75 MG Verapamil HCl (Calan-Sr Tab) 240 mg DAILY PO 12/07/16 09:00 01/06/17 08:59 12/13/16 09:24 240 MG Ferrous Sulfate (Feosol Tab) 325 mg TIDM PO 12/06/16 18:00 01/05/17 17:59 12/13/16 17:22 325 MG Miscellaneous (Fentanyl Patch Remove & Waste) 1 ea Q3D@1659 N/A 12/06/16 16:59 01/05/17 16:58 12/12/16 17:22 1 EA Miscellaneous Information (Check Fentanyl Patch Placement) 1 ea QS N/A 12/06/16 16:00 01/05/17 15:59 12/13/16 16:21 1 EA Nystatin (Mycostatin Susp) 5 ml TID PO 12/06/16 21:00 12/16/16 20:59 12/13/16 09:24 5 ML Quetiapine Fumarate (seroQUEL TAB) 25 mg Q12H PRN PO 12/12/16 00:45 01/11/17 00:44 12/12/16 01:23 25 MG Gadobutrol (Gadavist) 6 mmol UD PRN IV 12/13/16 00:15 12/17/16 00:14 Donepezil HCl (Aricept Tab) 5 mg HS PO 12/13/16 22:00 01/12/17 21:59 Objective Vital Signs Date Time Temp Pulse Resp B/P Pulse Ox O2 Delivery O2 Flow Rate FiO2 12/13/16 16:00 Room Air 12/13/16 15:10 36.6 90 15 117/76 97 Room Air 12/13/16 07:51 36.8 66 18 108/72 96 Room Air 12/13/16 07:31 Room Air 12/13/16 00:00 94 Room Air 12/13/16 00:00 36.6 87 20 115/66 97 Room Air Physical Exam General Appearance: WD/WN, no apparent distress Eyes: normal inspection ENT: normal ENT inspection, hearing grossly normal Neck: supple, no adenopathy Respiratory/Chest: chest non-tender, lungs clear Cardiovascular: regular rate, rhythm, no edema Abdomen: normal bowel sounds, non tender, soft Extremities: normal range of motion, non-tender Neurologic/Psychiatric: 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-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 nml as tested, no motor/sensory deficits, alert, oriented x 3 Laboratory Results Last 24 Hours Test 12/12/16 19:44 Urine Color YELLOW Urine Appearance CLEAR Urine pH 7.0 Urine Specific [place] 1.012 Urine Protein NEG Urine Glucose (UA) NEG Urine Ketones NEG Urine Occult Blood NEG Urine Nitrite POS Urine Bilirubin NEG Urine Urobilinogen NEG Urine Leukocyte Esterase SMALL Urine WBC (Auto) 5-10 /hpf Urine RBC (Auto) 5-10 /hpf Urine Hyaline Casts (Auto) 0 /lpf Urine Epithelial Cells (Auto) 20-30 /lpf Urine Bacteria (Auto) 4+ Assessment and Plan 71-year-old female presents emergency department with altered mental status, currently being treated for urinary tract infection, not eating or drinking at home Metabolic Encephalopathy - etiology may be 2/2 to UTI however suspect psychiatric component - per psychiatry taper xanax to 0.75 mg tid - start aricept per neurology recommendations - MRI reviewed - TSH, B12, Folate - WNL - appreciate neurology and psychiatry input GNR Baccilli Cystitis - start cefipime - await speciation Chronic Pain/Anxiety/Depression/Polypharmacy- reports no recent changes in meds. - Continue Fentanyl 100 mcg Q72H and Gabapentin 600 mg TID - would like to see this weaned as well again given age - Effexor 75 mg TID - appreciate psychiatry input DVT prophylaxis: Heparin 5000 BID SC Q12H TEDS, SCDs CODE STATUS: FULL CODE DISPO: - SNF placement in 1-2 days/await urince culture speciation Discharge planning: nursing home facility
[2016-12-13] MEDS ORDERED: CEFEPIME IV 2,000 MG in DEXTROSE 5% 100ML 100 ML IV SCH (18:30)
[2016-12-13] MEDS: ALPRAZOLAM 0.25 MG TAB PO SCH (19:43)
[2016-12-13] MEDS: DONEPEZIL HCL 5 MG TAB PO SCH (21:54)
[2016-12-13] MEDS: SIMVASTATIN 40 MG TAB PO SCH (21:54)
[2016-12-14] VITALS: BP 111/65; PULSE 72; TEMP 36.7; O2SAT 96
[2016-12-14 07:33] VITALS: BP 114/77; PULSE 81; TEMP 36.4; O2SAT 97
[2016-12-14 08:00] VITALS: O2SAT 97
[2016-12-14] MEDS: CHECK FENTANYL PATCH PLACEMENT SCH ×3 (08:00→15:21)
[2016-12-14] MEDS: NYSTATIN SUSP 500,000 U/5 ML UDC PO SCH ×3 (08:21→19:20)
[2016-12-14] MEDS: VENLAFAXINE HCL XR 75 MG CAPXR PO SCH ×3 (08:21→19:19)
[2016-12-14] MEDS: FERROUS SULFATE 325 MG TAB PO SCH ×3 (08:21→19:18)
[2016-12-14] MEDS: VERAPAMIL HCL 240 MG TABCR PO SCH (08:21)
[2016-12-14] MEDS: GABAPENTIN 600 MG TAB PO SCH ×3 (08:21→19:19)
[2016-12-14] MEDS: ALPRAZOLAM 0.25 MG TAB PO SCH ×4 (08:22→20:29)
[2016-12-14] MEDS: HEPARIN SOD 5000 UNIT/0.5 ML CARP SQ SCH ×2 (09:32→20:30)
[2016-12-14] MEDS ORDERED: CEFTRIAXONE SOD INJ 1 GM in DEXTROSE 5% ADD-VANTAGE 50ML 50 ML IV SCH (12:30)
[2016-12-14 14:52] VITALS: BP 124/76; PULSE 67; TEMP 36.8; O2SAT 93
--- NOTE | 2016-12-14 15:35 | Progress Note ---
Subjective Date of Service: Dec 14, 2016. (Milagros Beth PA-C) Subjective Pt evaluation today including: conversation w/ patient, conversation w/ family , physical exam, chart review, lab review, review of studies, review of inpatient medication list Patient seen and evaluated. She remains pleasantly confused. Ambulating with PT/OT. UCx growing pansensitive Klebsiella. She denies pain or verbalize any complaints at this time. (Milagros Beth PA-C) Problem List Medical Problems: (1) Altered mental status Status: Acute (2) Elevated troponin Status: Acute (3) Hypokalemia Status: Acute (4) Thrush Status: Acute (5) Weakness Status: Acute (Milagros Beth PA-C) Review of Systems Deferred due to AMS. (Milagros Beth PA-C) Medications Current Inpatient Medications Medications (Trade) Dose Ordered Sig/Nathan Route Start Time Stop Time Status Last Admin Dose Admin Heparin Sodium (Porcine) (Heparin Sq 5000 Unit/0.5ml) 5,000 unit Q12 SQ 12/06/16 21:00 01/05/17 20:59 12/14/16 09:32 5,000 UNIT Acetaminophen (Tylenol Tab) 650 mg Q4H PRN PO 12/06/16 16:00 01/05/17 15:59 12/13/16 17:23 650 MG Ondansetron HCl (Zofran Inj) 4 mg Q6H PRN IV 12/06/16 16:00 01/05/17 15:59 12/10/16 11:40 4 MG Docusate Sodium (coLACE CAP) 100 mg TID PRN PO 12/06/16 17:30 01/05/17 17:29 Fentanyl (Duragesic Patch) 100 mcg Q3D@1700 TD 12/06/16 17:00 12/20/16 16:59 12/12/16 17:23 100 MCG Gabapentin (Neurontin Tab) 600 mg TID PO 12/06/16 21:00 01/05/17 20:59 12/14/16 13:17 600 MG Simvastatin (Zocor Tab) 40 mg QPM PO 12/06/16 21:00 01/05/17 20:59 12/13/16 21:54 40 MG Venlafaxine HCl (effeXOR EXTENDED REL CAP) 75 mg TID PO 12/06/16 21:00 01/05/17 20:59 12/14/16 13:17 75 MG Verapamil HCl (Calan-Sr Tab) 240 mg DAILY PO 12/07/16 09:00 01/06/17 08:59 12/14/16 08:21 240 MG Ferrous Sulfate (Feosol Tab) 325 mg TIDM PO 12/06/16 18:00 01/05/17 17:59 12/14/16 11:58 325 MG Miscellaneous (Fentanyl Patch Remove & Waste) 1 ea Q3D@1659 N/A 12/06/16 16:59 01/05/17 16:58 12/12/16 17:22 1 EA Miscellaneous Information (Check Fentanyl Patch Placement) 1 ea QS N/A 12/06/16 16:00 01/05/17 15:59 12/14/16 00:00 1 EA Nystatin (Mycostatin Susp) 5 ml TID PO 12/06/16 21:00 12/16/16 20:59 12/14/16 13:17 5 ML Quetiapine Fumarate (seroQUEL TAB) 25 mg Q12H PRN PO 12/12/16 00:45 01/11/17 00:44 12/12/16 01:23 25 MG Gadobutrol (Gadavist) 6 mmol UD PRN IV 12/13/16 00:15 12/17/16 00:14 Donepezil HCl (Aricept Tab) 5 mg HS PO 12/13/16 22:00 01/12/17 21:59 12/13/16 21:54 5 MG Alprazolam 0.75 mg 0.75 mg QID PO 12/13/16 20:00 01/12/17 19:59 12/14/16 11:58 0.75 MG Ceftriaxone Sodium/Dextrose (Rocephin Inj/ Dextrose Add-[place] 50ML) 50 ml @ 100 mls/hr Q24H IV 12/14/16 12:30 12/19/16 12:29 12/14/16 12:46 100 MLS/HR (Milagros Beth, LESLYE) Objective Vital Signs Date Time Temp Pulse Resp B/P Pulse Ox O2 Delivery O2 Flow Rate FiO2 12/14/16 14:52 36.8 67 18 124/76 93 Room Air 12/14/16 08:00 97 Room Air 12/14/16 07:33 36.4 81 18 114/77 97 Room Air 12/14/16 00:10 Room Air 12/14/16 00:00 36.7 72 20 111/65 96 Room Air 12/13/16 16:00 Room Air (Milagros Beth PA-C) Physical Exam General Appearance: WD/WN, no apparent distress Eyes: sclerae normal ENT: hearing grossly normal Neck: supple, no JVD Respiratory/Chest: lungs clear, normal breath sounds, no respiratory distress, no accessory muscle use, + decreased breath sounds Cardiovascular: regular rate, rhythm, no gallop, no murmur Abdomen: normal bowel sounds, non tender, soft Extremities: no pedal edema, no calf tenderness Neurologic/Psychiatric: alert, + disoriented Skin: normal color, warm/dry (Milagros Beth PA-C) Assessment and Plan 71-year-old female presents emergency department with altered mental status, currently being treated for urinary tract infection, not eating or drinking at home Metabolic Encephalopathy 2/2 UTI: Pansensitive Klebsiella - Ceftriaxone 1 g IV daily - per psychiatry taper xanax to 0.75 mg tid - start aricept per neurology recommendations - appreciate neurology and psychiatry input Chronic Pain/Anxiety/Depression/Polypharmacy- reports no recent changes in meds. - Continue Fentanyl 100 mcg Q72H and Gabapentin 600 mg TID - would like to see this weaned as well again given age - Effexor 75 mg TID - appreciate psychiatry input DVT prophylaxis: Heparin 5000 BID SC Q12H TEDS, SCDs CODE STATUS: FULL CODE DISPO: - Hopeful discharge to [facility] tomorrow - allows for 48 hours Abx coverage and will convert to po meds Discharge planning: senior care facility (Milagros Beth PA-C) ATTENDING ATTESTATION I have seen and examined patient this am. I have discussed plan of care in detail with LESLYE and agree with plan as stated above. Patient mental status improved, no episodes of delirium Vitals-reviewed GEN- NAD CVS-RRR RESP-CTA ABD-CTA EXT- no edema Labs-reviewed Klebsiella UTI Encephalopathy -switch cefepime to ceftriaxone, switch to oral in am (Milagros Fatima MD)
[2016-12-14] MEDS: QUETIAPINE FUMARATE 25 MG TAB PO PRN (19:20)
[2016-12-14] MEDS: SIMVASTATIN 40 MG TAB PO SCH (19:21)
[2016-12-14] MEDS: DONEPEZIL HCL 5 MG TAB PO SCH (20:30)
[2016-12-15] VITALS: BP 132/68; PULSE 103; TEMP 36.5; O2SAT 95
[2016-12-15 07:18] VITALS: BP 118/66; PULSE 95; TEMP 36.4; O2SAT 98
[2016-12-15] MEDS: CHECK FENTANYL PATCH PLACEMENT SCH ×2 (07:40)
[2016-12-15 07:50] VITALS: O2SAT 98
[2016-12-15 08:36] VITALS: BP 118/66; PULSE 95; TEMP 36.4; O2SAT 98
[2016-12-15] MEDS: VENLAFAXINE HCL XR 75 MG CAPXR PO SCH ×2 (08:45→13:35)
[2016-12-15] MEDS: FERROUS SULFATE 325 MG TAB PO SCH ×2 (08:45→11:44)
[2016-12-15] MEDS: VERAPAMIL HCL 240 MG TABCR PO SCH (08:45)
[2016-12-15] MEDS: ALPRAZOLAM 0.25 MG TAB PO SCH ×2 (08:45→11:45)
[2016-12-15] MEDS: GABAPENTIN 600 MG TAB PO SCH ×2 (08:45→13:35)
[2016-12-15] MEDS: NYSTATIN SUSP 500,000 U/5 ML UDC PO SCH ×2 (08:45→13:35)
[2016-12-15] MEDS: HEPARIN SOD 5000 UNIT/0.5 ML CARP SQ SCH (08:48)
[2016-12-15] MEDS ORDERED: ARC5 PO (08:51)
[2016-12-15] MEDS ORDERED: SRQ25 PO (08:51)
[2016-12-15] MEDS ORDERED: NYSS5 PO (08:51)
[2016-12-15] MEDS ORDERED: XNX25 PO (08:51)
[2016-12-15] MEDS ORDERED: CIPR1TAB11 PO (08:51)
[2016-12-15] MEDS ORDERED: CIPROFLOXACIN 250 MG TAB PO SCH (09:00)
--- NOTE | 2016-12-15 09:10 | Discharge Instructions ---
Discharge Instructions Admission Reason for Admission: Metabolic Encephalopathy (Milagros Beth PA-C) Discharge Discharge Diagnosis / Problem: Klebsiella Urinary Tract Infection (Milagros Beth PA-C) Discharge Goals Goal(s): Improve function, Increase independence, Improve disease control (Milagros Beth PA-C) Activity Recommendations Activity Level: Assistance Required . (Milagros Beth PA-C) Additional Information Patient informed of condition: Yes Advance Directives: Yes DNR: No Level of Care: Skilled Communicable Disease: No Prognosis: Improving Ritchie Catheter: No (Milagros Beth PA-C) Instructions / Follow-Up Instructions / Follow-Up 71-year-old female presents emergency department with altered mental status, currently being treated for urinary tract infection, not eating or drinking at home Metabolic Encephalopathy 2/2 UTI: Pansensitive Klebsiella - Initially admitted due to altered mental status with initial urinalysis that did not show infection however due to incontinence and no break in the altered mental status she was retested that showed Klebsiella. - Per and PCP she has this confusion in the setting of a UTI which resolves with treatment. Per PCP she is alert and oriented x 3 however has only been oriented x 1 and sometimes knows she is in the hospital. - Currently thinks she is 16 years old and graduated high school and which has stayed consistent - She was treated with IV Abx x 2 days and converted to Ciprofloxacin 500 mg BID x 12 more days - Had long discussion with and PCP as family reports that she does not have underlying dementia or psychological conditions. Nothing documented however from an objective standpoint underlying dementia is likely. Patient baseline is apparently agitated per family and PCP which begs to question dementia as well. - Neurology recommending Donepezil 5 mg at HS - Will provide script for Seroquel 25 mg Q12H PRN if needed for agitation Chronic Pain/Anxiety/Depression/Polypharmacy- reports no recent changes in meds. - Continue Fentanyl 100 mcg Q72H and Gabapentin 600 mg TID - Effexor 75 mg TID - Concern for the excessive dosing and uncommon dosing of Effexor however patient has been on these medications x 20 years per family and had adverse effects with weans. - Started to wean Xanax from 1 mg QID to now 0.75 mg QID as this is a medication that should be avoided and would recommend long slow taper as outpatient. - Would like to see pain medications and Effexor adjusted but would defer this to the provider who prescribes these medications (Milagros Beth PA-C) Current Hospital Diet Patient's current hospital diet: Regular Diet (Milagros Beth PA-C) Discharge Diet Recommended Diet: Regular Diet (Milagros Beth PA-C) Pending Studies Studies pending at discharge: no (Milagros Beth PA-C) Medical Emergencies . Who to Call and When: Medical Emergencies: If at any time you feel your situation is an emergency, please call 911 immediately. . (Milagros Beth PA-C) Non-Emergent Contact Non-Emergency issues call your: Primary Care Provider Call Non-Emergent contact if: you have a fever, you have any medication questions . (Milagros Beth PA-C) . "Provider Documentation" section prepared by Milagros Beth. (Milagros Beth PA-C) Core Measure Problem Core Measures: None (Milagros Beth PA-C)
--- NOTE | 2016-12-15 15:44 | Discharge Summary ---
Discharge Summary Date of Service Dec 15, 2016. (Milagros Beth PA-C) Discharge Summary Admission Date: Dec 06, 2016 at 16:07 Discharge Date: Dec 15, 2016 Discharge Disposition: [facility] facility Principal Diagnosis: Metabolic Encephalopathy from Klebsiella Urinary Tract Infection Problems/Secondary Diagnoses: Medical Problems: (1) Back pain (2) HTN (hypertension) (3) Metabolic encephalopathy Surgical Problems: (1) History of knee replacement Procedures: 1. CHEST ONE VIEW PORTABLE CLINICAL HISTORY: Sepsis dyspnea COMPARISON STUDY: 11/17/2016 FINDINGS: The bones soft tissues and hemidiaphragms are normal. The cardiomediastinal silhouette is normal. The lungs are clear. The pulmonary vasculature is normal. Apparent consolidative changes medial aspect right base unchanged in the prior study. Pain. Patient's prior CT study this relates to a hiatal hernia with a component of interposed stomach and colon. There are no acute infiltrates. IMPRESSION: No acute infiltrates. Increased density medial right base unchanged from the prior study and apparently relating to a complex hiatal hernia . 2. CT HEAD WITHOUT CONTRAST (CT) CLINICAL HISTORY: Stroke. Confusion. COMPARISON STUDY: 12/06/2016 TECHNIQUE: Axial CT of the brain is performed from the vertex to the skull base. IV contrast was not administered for this examination. CT DOSE: 691.05 mGy.cm FINDINGS: No intra or extra-axial mass lesions are visualized. There is no CT evidence of acute cortical infarction. There is no evidence of midline shift. There is no acute hemorrhage. No calvarial fractures are visualized. There are patchy white matter hypodensities likely on a small vessel basis. There is stable atrophy, most pronounced within the temporal lobes. There is a stable cerebellar lacunar infarct. There is no evidence of pathologic ventricular dilatation. There is no evidence of acute sinusitis IMPRESSION: No acute intracranial findings 3. MRI OF THE BRAIN COMBO CLINICAL HISTORY: Change in mental status. Dementia. COMPARISON STUDY: CT of the brain dated 12/08/2016. TECHNIQUE: MRI of the brain was performed utilizing various T1 and T2-weighted sequences in the axial, sagittal, and coronal planes. Contrast-enhanced sequences were acquired following the administration of 6 cc of Gadavist. The examination is significant degraded by motion artifact. FINDINGS: Brain parenchyma: There are age-related involutional changes noting moderate patchy subcortical and periventricular microangiopathic disease. There is no hemorrhage or mass effect. There is no restricted diffusion to suggest acute ischemia. No enhancing mass lesion is identified on the postcontrast images. Chronic lacunar infarcts are noted in the leonard. Lovett-white matter differentiation is preserved. No extra-axial fluid collection is seen. The cerebellar tonsils are normal in configuration. Ventricles, sulci, and cisterns: Prominent secondary to involutional change. Pituitary and sella: Unremarkable. Intracranial vasculature: Normal flow voids are maintained at the skull base. Orbits: The bony orbits are grossly intact. Orbital contents are normal in appearance noting bilateral ocular lens implants. Sinuses and mastoids: Clear. Calvarium: Unremarkable. Cervical cord: Partially visualized cervical spinal cord is normal in morphology and signal intensity. IMPRESSION: 1. Motion degraded examination. 2. Senescent changes as above with no hemorrhage, enhancing mass, or evidence of acute ischemia. Consultations: 1. Psychiatry 2. Neurology 3. PT/OT (Milagros Beth, LESLYE) Medication Reconciliation New Medications: Ciprofloxacin Tab (Cipro) 250 Mg Tab 500 MG PO BID for 12 Days, TAB Alprazolam (Alprazolam) 0.25 Mg Tab 0.75 MG PO QID for 30 Days, TAB Donepezil HCl (Donepezil HCl) 5 Mg Tab 5 MG PO HS for 30 Days, TAB Nystatin (Nystatin) 5 Ml Susp 5 ML PO TID PRN for Oral Candidiasis for 15 Days Quetiapine Fumarate (Quetiapine Fumarate) 25 Mg Tab 25 MG PO Q12H PRN for delirium for 30 Days, #60 TAB Continued Medications: Calcium Carbonate-Vitamin D W/ (Caltrate 600 Plus) 1 Tab Tab 1 TAB PO BID, TAB Docusate Sodium (Colace) 100 Mg Cap 1 CAP PO TID PRN for Constipation for 30 Days, #90 CAP Fentanyl (Fentanyl) 100 Mcg Tdsy 100 MCG TOP [id number] Ferrous Sulfate (Ferrous Sulfate) 325 Mg Tab 1 TAB PO TID Gabapentin (Neurontin) 600 Mg Tab 600 MG PO TID, TAB Krill Oil (Krill Oil) 1 Cap Cap 1 CAP PO DAILY Multivitamins/Minerals (Mvi With Minerals) Tab 1 TAB PO DAILY, TAB Oxycodone/Acetaminophen 5MG/325MG (Percocet 5MG/325MG) Tab 1 TABLET PO QID PRN for Pain, TAB PAIN Simvastatin (Zocor) 40 Mg Tab 40 MG PO QPM, TAB Venlafaxine Hcl (Effexor Xr) 150 Mg Cap 150 MG PO TID for 30 Days, #90 CAP 2 Refills Verapamil Sust Rel (Calan Sr Ext Rel) 240 Mg Tabcr 240 MG PO DAILY, TAB Discontinued Medications: Alprazolam (Xanax) 1 Mg Tab 1 MG PO QID, TAB Nitrofurantoin Monohyd Macrocr (Macrobid) 100 Mg Cap Unknown Dose PO, #6 CAP Discharge Exam Review of Systems: Constitutional: No chills, No fever Respiratory: No shortness of breath Cardiovascular: No chest pain Abdomen: No constipation, No diarrhea, No nausea, No pain, No vomiting Genitourinary - Female: No dysuria Integumentary: No itch, No rash Physical Exam: General Appearance: WD/WN, no apparent distress Eyes: sclerae normal ENT: hearing grossly normal Neck: supple, no JVD, trachea midline Respiratory/Chest: lungs clear, normal breath sounds, no respiratory distress, no accessory muscle use, + decreased breath sounds Cardiovascular: regular rate, rhythm, no gallop, no murmur Abdomen / GI: normal bowel sounds, non tender, soft Extremities: no calf tenderness, no pedal edema Neurologic/Psychiatric: alert, + disoriented Skin: normal color, warm/dry (Milagros Beth, SAMMYC) Hospital Course ADMISSIONS: This patient is a 71-year-old white female presents emergency department with her today with complaints of altered mental status. According to the , the patient was having difficulty finishing her sentences for the last 2 days. She is also been very weak over the last 2 weeks (no focal weakness). The patient was diagnosed with a urinary tract infection 2 weeks ago. She is currently on her second round of antibiotics. The does not remember the name of the first antibiotic. She has been on Macrobid and has had a total of 3 doses. Her mental state has continued to decline. History is mainly taken from the . He says that she typically gets like this when she has UTIs. She was treated for urinary tract infection approximately one year ago in [place] with similar symptoms. The patient's denies any falls. He does note that she has felt warm to touch. They have not checked her temperature at home. He denies any other notable symptoms such as cough. She has not been complaining of any headaches or dizziness. The patient's handles her medication. He keeps them locked up in a safe. He denies any recent changes in her medications. He does however note that she was having a difficult time sleeping and probably has only gotten a half hour sleep over the last 36 hours. He gave her an [id number] sleep medication last night, which reportedly did not help. He thought the name was sleep aid SUMMARY: Ms. Peter was admitted to the [facility] floor with suspicion of a urinary tract infection. She was initially placed on vancomycin while awaiting urinalysis culture. Initial culture was without growth and antibiotics were discontinued. Per patient's she was treated with 2 rounds of outpatient antibiotics. However 2 days prior to admission, he notes altered mental status change. Long discussions were had with the patient's and PCP. states that she commonly gets this way with urinary tract infections. He said the last time it took 8 days for her to return to normal mentation. During this hospital stay she remained alert and oriented to self only. She remained afebrile and without leukocytosis. Due to her continued altered mental status a repeat urinalysis was performed. On this new urinalysis and culture it was revealed to grow pansensitive Klebsiella. At this time she was reinstituted on cefepime IV and converted to ceftriaxone 1 g IV daily after sensitivity report. She had a total of 48 hours IV antibiotics and was converted to by mouth ciprofloxacin 500 mg every 12 hours to continue for 12 more days. This will give a treatment total of 14 days. Her and PCP, patient's baseline mentation is largely agitated however she is normally alert and oriented to self, place, and situation. denies underlying dementia however objectively, suspicion of dementia present. While admitted patient believes she is 16 years old, currently , and dating her boyfriend. frequently at bedside, the patient thinks this is her grandfather. Per , patient is reliving accurate past events of her life. She has short periods of clarity however she remains largely altered. She showed evidence of sundowning multiple nights during admission. Due to this altered mental status we decided to consult neurology for concern of Lewy body versus vascular dementia. MRI was obtained and official report can be found in procedures. No specific findings suggestive of Lewy body dementia. Per neurology recommendations, [facility] 5 mg by mouth daily was initiated. Psychiatry was consulted. Concerned placed for polypharmacy. Patient has been on high dose benzodiazepine, Fentanyl patch, Gabapentin, opioids, and unusual TID dosing of Effexor. Recommendations given for a slow Xanax taper. reports in the past this medication was cut in half and patient did not tolerate. We have initiated a slow wean of Xanax 0.75 mg 4 times a day. We would recommend that this medication be continued to be weaned in the future. Per psychiatry, these medications are prescribed by pain management as patient has chronic pain from osteoarthritis. We will defer further wean and medication adjustments by the prescribing provider. More than likely, this altered mental status is related to this new urinary tract infection. Due to the patient's incontinence of urine and bowel she is likely to continue having recurrent urinary tract infections. However, I do suspect underlying dementia and possible psychiatric disorders. Due to concern of altered mental status and deconditioning of the patient we recommended temporary placement at [facility]. Ultimately, we would've hoped to see patient at baseline mentation. However patient remains confused. Other sources of infection have been ruled out. Brain imaging performed without evidence of acute intracranial processes. She will be discharged to [facility] on her home medications. Xanax was decreased. A prescription for ciprofloxacin given for her current urinary tract infection. A prescription for Aricept given. Will also provide a prescription for Seroquel 25 mg twice a day when necessary for agitation while at [facility]. Total Time Spent: Greater than 30 minutes This includes examination of the patient, discharge planning, medication reconciliation, and communication with other providers. (Milagros Beth, LESLYE) ATTENDING ATTESTATION I saw and examined patient today. I have discussed plan of care with LESLYE Beth and agree with discharge summary as stated above. (Milagros Fatima MD) Discharge Instructions Please refer to the electronic Patient Visit Report (Discharge Instructions) for additional information. (Milagros Beth PA-C) Additional Copies To Lesvia Toure M.D.
== END 2016-12-15 14:41 | DRG 689 ==
LOC: ENRESERVTM → ENRESERVDT → EDBD 10:49 → C.EDC 10:50 → C.MED 16:07 → C.MS4W 12-09 21:35
PROVIDERS: ADMIT Family Medicine; ATTEND Internal Medicine
DX: N39.0 Urinary tract infection, site not specified (principal); G93.41 Metabolic encephalopathy; I10 Essential (primary) hypertension; F32.9 Major depressive disorder, single episode, unspecified; F41.9 Anxiety disorder, unspecified; M54.9 Dorsalgia, unspecified; Z82.49 Family history of ischemic heart disease and other diseases of the circulatory system; G31.83 Neurocognitive disorder with Lewy bodies; F02.80 Dementia in other diseases classified elsewhere, unspecified severity, without behavioral disturbance, psychotic disturbance, mood disturbance, and anxiety; Z96.659 Presence of unspecified artificial knee joint; Z86.73 Personal history of transient ischemic attack (TIA), and cerebral infarction without residual deficits; M19.90 Unspecified osteoarthritis, unspecified site; F01.50 Vascular dementia, unspecified severity, without behavioral disturbance, psychotic disturbance, mood disturbance, and anxiety; B96.1 Klebsiella pneumoniae [K. pneumoniae] as the cause of diseases classified elsewhere

== ENCOUNTER 2017-12-12 15:23 | Emergency (ER) | payer MEDICARE, OTHER ==
[~2017-12-12] VITALS: Ht 157.5 cm; Wt 82.0 kg
[~2017-12-12 15:23] MED LIST changes: +ARC5 PO; -CIPR1TAB11 PO; +DOCU-94 PO; +DRGTP100 TOP; +GABA600T PO; +KRIL1000 PO; +MULT-513 PO; -NYSS/ PO; +NYSS5 PO; +OXYC-57 PO; +SIMV40TA2 PO; +SRQ25 PO; +VENL150C PO; +XNX25 PO
[2017-12-12 15:27] VITALS: TEMP 36.7; Ht 157.5 cm; Wt 82.0 kg
[2017-12-12 15:53] VITALS: O2SAT 93
[2017-12-12 16:02] LABS: BASO % 0.3 %; BASO ABS # 0.02 K/uL (0-0.2); EOS % 1.3 %; HEMATOCRIT 46.6 % (37-47); HEMOGLOBIN 15.4 g/dL (12.0-16.0); IG# 0.04 K/uL (0.00-0.02); LYMPH % 21.6 %; LYMPH ABS # 1.71 K/uL (1.2-3.4); MEAN CELL VOLUME 89.3 fL (80-100); MEAN CORPUSCULAR HEMOGLOBIN 29.5 pg (25-34); MEAN PLATELET VOLUME 11.1 fL (7.4-10.4); MONO % 7.6 %; NEUT % 68.7 %; NEUT ABS # 5.46 K/uL (1.4-6.5); PLATELET COUNT 222 K/uL (130-400); RED CELL DISTRIBUTION WIDTH CV 14.3 % (11.5-14.5); RED CELL DISTRIBUTION WIDTH SD 46.6 fL (36.4-46.3); WHITE BLOOD COUNT 7.93 K/uL (4.8-10.8)
--- NOTE | 2017-12-12 16:11 | DIAGNOSTIC IMAGING REPORT ---
CT OF THE HEAD WITHOUT CONTRAST CLINICAL HISTORY: whole body tingling COMPARISON STUDY: Head CT December 08, 2016 and MRI of the brain December 12, 2016. CT DOSE: 729.78 mGycm TECHNIQUE: Helical axial images of the head were obtained without IV contrast. Automated exposure control was utilized for the study. A dose lowering technique was utilized adhering to the principles of ALARA. FINDINGS: No acute intracranial hemorrhage, midline shift or mass effect is present. Jugular system is stable. Basilar cisterns are patent. There are no extra-axial collections. White matter hypodensity suggests small vessel disease. There are no findings to suggest acute dural sinus thrombosis or acute territorial infarct. There may be several prominent perivascular spaces versus old lacunar infarcts within the left basal ganglia/temporal lobe. These are unchanged. There are no significant calvarial abnormalities. Visualized portions of the sinuses and mastoid air cells are clear with the exception of minimal calcification of the ethmoid sinuses. IMPRESSION: No acute intracranial findings. Electronically signed by: Micheal Zazueta M.D. 12/12/2017 4:10 PM Dictated Date/Time: 12/12/2017 4:08 PM
[2017-12-12 16:16] LABS: PTT PATIENT 23.1 SECONDS (21.0-31.0)
[2017-12-12] MEDS ORDERED: VERA240T20 PO (16:19)
[2017-12-12] MEDS ORDERED: FERR1TAB62 PO (16:19)
[2017-12-12] MEDS ORDERED: CALCTAB7 PO (16:19)
[2017-12-12 16:30] LABS: ALBUMIN 3.2 gm/dl (3.4-5.0); ALT/SGPT 14 U/L (12-78); AST/SGOT 11 U/L (15-37); BLOOD UREA NITROGEN 18 mg/dl (7-18); CALCIUM 9.2 mg/dl (8.5-10.1); CARBON DIOXIDE 30 mmol/L (21-32); CREATININE 0.74 mg/dl (0.60-1.20); GLUCOSE 103 mg/dl (70-99); LIPASE 188 U/L (73-393); POTASSIUM 3.9 mmol/L (3.5-5.1); SODIUM 142 mmol/L (136-145)
[2017-12-12 16:36] LABS: ALKALINE PHOSPHATASE 117 U/L (45-117); CKMB 1.3 ng/ml (0.5-3.6); TOTAL PROTEIN 7.1 gm/dl (6.4-8.2)
--- NOTE | 2017-12-12 16:37 | DIAGNOSTIC IMAGING REPORT ---
CHEST ONE VIEW PORTABLE HISTORY: Facial numbness. tingling COMPARISON: Chest 12/06/2016. FINDINGS: No pneumothorax. No pleural effusions. The heart remains mildly enlarged. Linear density left lung base consistent with subsegmental atelectasis or scarring. Hazy appearance to the right mid to lower lung zone persist. This was demonstrated to be a large diaphragmatic hernia on the prior studies. IMPRESSION: No significant change compared to the prior study. No acute process. Stable large right-sided diaphragmatic hernia. Electronically signed by: Calixto Harrell M.D. 12/12/2017 4:36 PM Dictated Date/Time: 12/12/2017 4:34 PM
--- NOTE | 2017-12-12 16:50 | EMERGENCY ROOM VISIT NOTE ---
ED Visit Note First contact with patient: 15:32 This Patient was discussed with the physician child life assistant, Mary Morales PA-C. The pertinent historical and physical exam findings were confirmed. I agree with the studies ordered and with the interpretations of these studies. I agree with the disposition and care plan.
[2017-12-12] MEDS ORDERED: NITR-5 PO (16:57)
--- NOTE | 2017-12-12 16:58 | EMERGENCY ROOM VISIT NOTE ---
History First contact with patient: 15:32 Chief Complaint: NEURO SYMPTOMS Stated Complaint: NUMBNESS TO FACE, TINGLING,COLD FEET Nursing Triage Summary: Patient with c/o numbness on bilateral hands and face and states her feet are cold and painful. Patient states she woke up with the numbess around 0900. Patinet is oriented to person and place but not time. states patient has had a decline in mental status and sometimes does not recognize him as her but thinks he is her father/grandfather. History of Present Illness The patient is a 72 year old female who presents to the Emergency Room with complaints of numbness and tingling. The patient states that she woke up this morning at 9 AM with numbness and tingling in her face and then it went throughout her whole body. She states is difficult to walk due to the tingling in her feet. She also states that her feet felt cold. Patient denies any headache, dizziness or visual changes. The patient denies any chest pain or shortness of breath. The states that the patient has dementia. He also states that she is not on any new medications. She sees psychiatry in [place]. Review of Systems 10 system review was performed and was negative unless stated otherwise history of present illness. Past Medical/Surgical History Medical Problems: (1) Back pain (2) HTN (hypertension) (3) Metabolic encephalopathy Surgical Problems: (1) History of knee replacement Dementia Family History Hypertension Social History Smoking Status: Never Smoker Alcohol Use: none Marital Status: Housing Status: lives with family Occupation Status: employed Current/Historical Medications Scheduled Alprazolam (Alprazolam), 0.75 MG PO QID Calcium Carbonate-Vitamin D W/ (Caltrate 600 Plus), 1 TAB PO BID Donepezil HCl (Donepezil HCl), 5 MG PO HS Fentanyl (Fentanyl), 100 MCG TOP [id number] Ferrous Sulfate (Ferrous Sulfate), 1 TAB PO TID Gabapentin (Neurontin), 600 MG PO TID Krill Oil (Krill Oil), 1 CAP PO DAILY Multivitamins/Minerals (Mvi With Minerals), 1 TAB PO DAILY Simvastatin (Zocor), 40 MG PO QPM Venlafaxine Hcl (Effexor Xr), 150 MG PO TID Verapamil Sust Rel (Calan Sr Ext Rel), 240 MG PO DAILY Scheduled PRN Docusate Sodium (Colace), 1 CAP PO TID PRN for Constipation Nystatin (Nystatin), 5 ML PO TID PRN for Oral Candidiasis Oxycodone/Acetaminophen 5MG/325MG (Percocet 5MG/325MG), 1 TABLET PO QID PRN for Pain Quetiapine Fumarate (Quetiapine Fumarate), 25 MG PO Q12H PRN for delirium Physical Exam Vital Signs Date Time Temp Pulse Resp B/P (MAP) Pulse Ox O2 Delivery O2 Flow Rate FiO2 12/12/17 16:40 63 18 138/80 93 Room Air 12/12/17 16:13 61 12/12/17 15:53 93 Room Air 12/12/17 15:27 36.7 65 20 136/83 93 Room Air Physical Exam GENERAL: 72-year-old white female appears older than stated age. MENTAL STATUS: Patient is alert and oriented. She does not know the date. She answers questions appropriately. EYES: PERRLA. EOMs intact. EARS: Canals clear. TMs without fluid level noted. NECK: Supple, no lymphadenopathy noted. No carotid bruits noted. LUNGS: Patient has expiratory wheeze throughout both lung mccain. No rales or rhonchi noted. CARDIAC: Regular rate and rhythm without murmur. Pulses is full and equal throughout. ABDOMEN: Positive bowel sounds all 4 quadrants. Soft, nontender to palpation without organomegaly or masses. NEURO:Cranial nerves two through 12 intact. Cerebellar function intact with [id number]. Fine motor intact with alternating finger motions. LOWER EXTREMITIES: No cyanosis or edema noted. Extremities are warm to the touch. Good capillary refill in both hands and feet. Medical Decision & Procedures ER Provider Diagnostic Interpretation: CHEST ONE VIEW PORTABLE HISTORY: Facial numbness. tingling COMPARISON: Chest 12/06/2016. FINDINGS: No pneumothorax. No pleural effusions. The heart remains mildly enlarged. Linear density left lung base consistent with subsegmental atelectasis or scarring. Hazy appearance to the right mid to lower lung zone persist. This was demonstrated to be a large diaphragmatic hernia on the prior studies. IMPRESSION: No significant change compared to the prior study. No acute process. Stable large right-sided diaphragmatic hernia. Electronically signed by: Calixto Harrell M.D. 12/12/2017 4:[address] OF THE HEAD WITHOUT CONTRAST CLINICAL HISTORY: whole body tingling COMPARISON STUDY: Head CT December 08, 2016 and MRI of the brain December 12, 2016. CT DOSE: 729.78 mGycm TECHNIQUE: Helical axial images of the head were obtained without IV contrast. Automated exposure control was utilized for the study. A dose lowering technique was utilized adhering to the principles of ALARA. FINDINGS: No acute intracranial hemorrhage, midline shift or mass effect is present. Jugular system is stable. Basilar cisterns are patent. There are no extra-axial collections. White matter hypodensity suggests small vessel disease. There are no findings to suggest acute dural sinus thrombosis or acute territorial infarct. There may be several prominent perivascular spaces versus old lacunar infarcts within the left basal ganglia/temporal lobe. These are unchanged. There are no significant calvarial abnormalities. Visualized portions of the sinuses and mastoid air cells are clear with the exception of minimal calcification of the ethmoid sinuses. IMPRESSION: No acute intracranial findings. Electronically signed by: Micheal Zazueta M.D. Laboratory Results 12/12/17 15:50 Red Blood Count 5.22, Mean Corpuscular Volume 89.3, Mean Corpuscular Hemoglobin 29.5, Mean Corpuscular Hemoglobin Concent 33.0, Mean Platelet Volume 11.1, Neutrophils (%) (Auto) 68.7, Lymphocytes (%) (Auto) 21.6, Monocytes (%) (Auto) 7.6, Eosinophils (%) (Auto) 1.3, Basophils (%) (Auto) 0.3, Neutrophils # (Auto) 5.46, Lymphocytes # (Auto) 1.71, Monocytes # (Auto) 0.60, Eosinophils # (Auto) 0.10, Basophils # (Auto) 0.02 12/12/17 15:50 Test 12/12/17 15:50 12/12/17 16:20 White Blood Count 7.93 K/uL (4.8-10.8) Red Blood Count 5.22 M/uL (4.2-5.4) Hemoglobin 15.4 g/dL (12.0-16.0) Hematocrit 46.6 % (37-47) Mean Corpuscular Volume 89.3 fL (80-100) Mean Corpuscular Hemoglobin 29.5 pg (25-34) Mean Corpuscular Hemoglobin Concent 33.0 g/dl (32-36) Platelet Count 222 K/uL (130-400) Mean Platelet Volume 11.1 fL (7.4-10.4) Neutrophils (%) (Auto) 68.7 % Lymphocytes (%) (Auto) 21.6 % Monocytes (%) (Auto) 7.6 % Eosinophils (%) (Auto) 1.3 % Basophils (%) (Auto) 0.3 % Neutrophils # (Auto) 5.46 K/uL (1.4-6.5) Lymphocytes # (Auto) 1.71 K/uL (1.2-3.4) Monocytes # (Auto) 0.60 K/uL (0.11-0.59) Eosinophils # (Auto) 0.10 K/uL (0-0.5) Basophils # (Auto) 0.02 K/uL (0-0.2) RDW Standard Deviation 46.6 fL (36.4-46.3) RDW Coefficient of Variation 14.3 % (11.5-14.5) Immature Granulocyte % (Auto) 0.5 % Immature Granulocyte # (Auto) 0.04 K/uL (0.00-0.02) Prothrombin Time 10.2 SECONDS (9.0-12.0) Prothromb Time International Ratio 1.0 (0.9-1.1) Activated Partial Thromboplast Time 23.1 SECONDS (21.0-31.0) Partial Thromboplastin Ratio 0.9 Anion Gap 7.0 mmol/L (3-11) Est Creatinine Clear Calc Drug Dose 66.2 ml/min Estimated GFR () 92.5 Estimated GFR (Non- 79.8 BUN/Creatinine Ratio 23.7 (10-20) Calcium Level 9.2 mg/dl (8.5-10.1) Total Bilirubin 0.4 mg/dl (0.2-1) Direct Bilirubin < 0.1 mg/dl (0-0.2) Aspartate Amino Transf (AST/SGOT) 11 U/L (15-37) Alanine Aminotransferase (ALT/SGPT) 14 U/L (12-78) Alkaline Phosphatase 117 U/L (45-117) Total Creatine Kinase 41 U/L (26-192) Creatine Kinase MB 1.3 ng/ml (0.5-3.6) Creatine Kinase MB Ratio 3.2 (0-3.0) Troponin I < 0.015 ng/ml (0-0.045) Pro-B-Type Natriuretic Peptide 3118 pg/ml (0-900) Total Protein 7.1 gm/dl (6.4-8.2) Albumin 3.2 gm/dl (3.4-5.0) Lipase 188 U/L (73-393) Urine Color YELLOW Urine Appearance CLEAR (CLEAR) Urine pH 5.5 (4.5-7.5) Urine Specific [place] 1.015 (1.000-1.030) Urine Protein NEG (NEG) Urine Glucose (UA) NEG (NEG) Urine Ketones NEG (NEG) Urine Occult Blood TRACE (NEG) Urine Nitrite NEG (NEG) Urine Bilirubin NEG (NEG) Urine Urobilinogen NEG (NEG) Urine Leukocyte Esterase MODERATE (NEG) Urine WBC (Auto) 10-30 /hpf (0-5) Urine RBC (Auto) 0-4 /hpf (0-4) Urine Hyaline Casts (Auto) 1-5 /lpf (0-5) Urine Epithelial Cells (Auto) 0-5 /lpf (0-5) Urine Bacteria (Auto) 4+ (NEG) ECG Per My Interpretation Indication: other (Numbness and tingling) Rhythm: junctional Findings: no acute ischemic change Change: no significant change ED Course The patient was evaluated. The patient's EMR medication list were reviewed. Patient was placed on a monitor and continuous pulse ox. EKG was ordered interpreted as above without any acute changes. CBC and differential, coags, CK -MB, troponin and BNP was ordered. Renal profile, LFTs lipase level was also ordered, urinalysis was ordered. Chest x-ray was ordered interpreted by the radiologist and myself as above without any change from prior chest x-ray.. CT of the head was ordered interpreted by the radiologist as above without any acute findings. Labs are reviewed and were unremarkable. Troponin was normal. Urinalysis revealed positive bacteria, positive blood and positive white cells. Culture is pending. The patient was informed of all findings. She was given Macrobid 100 mg p.o. while in the ER. The patient was independently evaluated by Dr. Brooks who agrees with treatment plan. The patient was discharged home in stable condition. Medical Decision Differential diagnosis includes stroke, intracranial bleed, aneurysm, MD, UTI, sepsis [place] Drug Monitoring Program Search Results: patient reviewed within database Medication Reconcilliation Current Medication List: was personally reviewed by me Blood Pressure Screening Patient's blood pressure: Normal blood pressure Impression Primary Impression: UTI (urinary tract infection) Departure Information Dispostion Home / Self-Care Condition GOOD Prescriptions Nitrofurantoin Monohyd Macrocr (Macrobid) 100 Mg Cap 100 MG PO BID for 7 Days, #14 CAP Prov: Isabell Morales PA-C 12/12/17 Referrals Lesvia Toure M.D. (PCP) Forms HOME CARE DOCUMENTATION FORM, IMPORTANT VISIT INFORMATION, WORK / SCHOOL INSTRUCTIONS Patient Instructions ED UTI Cystitis Female, My [facility] Additional Instructions Drink a lot of water. Take Macrobid as prescribed. Follow-up with your family doctor in 2-3 days for recheck. If symptoms worsen in the interim, return to ER. Problem Qualifiers Primary Impression: UTI (urinary tract infection) Urinary tract infection type: acute cystitis Hematuria presence: with hematuria Qualified Codes: N30.01 - Acute cystitis with hematuria
[2017-12-12] MEDS ORDERED: NITROFURANTOIN MONOHYDRATE 100 MG CAP PO ONE (17:00)
[2017-12-12 17:03] VITALS: BP 141/80; PULSE 58; O2SAT 93
[2017-12-12] MEDS ORDERED: ASCO500T3 PO (17:22)
[2017-12-12] MEDS ORDERED: VENL75TA4 PO (17:22)
[2017-12-12] MEDS ORDERED: GABA-1218 PO (17:22)
[2017-12-12] MEDS ORDERED: ALPR-411 PO (17:22)
--- NOTE | 2017-12-14 14:17 | Pharmacy Progress Note ---
ED Pharmacist Culture FollowUp Date of Service: Dec 14, 2017. Patient was sent home with a prescription for Macrobid 100mg PO BID x 7 days, which should cover the kleb pneumoniae and alpha-hemolytic strep growing from the patient's URINE culture.
== END 2017-12-12 17:18 | disposition home or self-care (01) ==
LOC: C.EDB 15:25 → C.EDA 17:18
DX: N30.01 Acute cystitis with hematuria (principal); F03.90 Unspecified dementia, unspecified severity, without behavioral disturbance, psychotic disturbance, mood disturbance, and anxiety; I10 Essential (primary) hypertension; Z82.49 Family history of ischemic heart disease and other diseases of the circulatory system; Z79.891 Long term (current) use of opiate analgesic

== ENCOUNTER 2019-04-01 07:19 | Observation (INO) ==
--- OUTSIDE RECORDS SUMMARY | 2019-04-01 07:23 | External Medical Summary | Continuity of Care Document ---
:1945 Author Name Gogo Leon Address Unavailable Unavailable , Care Team Providers Name Role Phone Unavailable Unavailable Unavailable Problems Polyneuropathy (356.9) (G62.9) Allergies and Adverse Reactions Allergy history not documented Medications Medications not documented Procedures Procedures not documented Immunizations Immunizations not documented Plan of Treatment Planned Observations Planned Goals not documented Results No Known Results Results not documented
[2019-04-01 07:56] LABS: Basophils # (auto) 0.01 K/uL (0-0.2); Basophils % (auto) 0.1 %; Eosinophils # (auto) 0.09 K/uL (0-0.5); Eosinophils % (auto) 0.9 %; Hemoglobin 16.7 g/dL (12.0-16.0); Immature Granulocytes # (auto) 0.03 K/uL (0.00-0.02); Immature Granulocytes % (auto) 0.3 %; Lymphocytes # (auto) 1.58 K/uL (1.2-3.4); Lymphocytes % (auto) 15.3 %; Mean Corpuscular Hgb Conc 33.4 g/dL (32-36); Mean Corpuscular Volume 91.2 fL (80-100); Mean Platelet Volume 12.7 fL (7.4-10.4); Monocytes # (auto) 0.74 K/uL (0.11-0.59); Monocytes % (auto) 7.2 %; Neutrophils # (auto) 7.88 K/uL (1.4-6.5); Neutrophils % (auto) 76.2 %; Platelet Count 189 K/uL (130-400); RDW Coefficient of Variation 14.2 % (11.5-14.5); Red Blood Count 5.48 M/uL (4.2-5.4); White Blood Count 10.33 K/uL (4.8-10.8)
[2019-04-01 07:58] LABS: Appearance Urine Clear (Clear); Bacteria Urine Automated 2+ (Negative); Bilirubin Urine Negative (Negative); Blood Urine 1+ (Negative); Color Urine Yellow; Epithelial Cell Urine Auto 0-5 /lpf (0-5); Glucose Urine UA Negative (Negative); Ketones Urine Negative (Negative); Leukocyte Esterase Urine Trace (Negative); Nitrite Urine Positive (Negative); Protein Urine Negative (Negative); Specific Gravity Urine 1.016 (1.000-1.030); Urobilinogen Urine Negative (Negative); pH Urine >= 9.0 (4.5-7.5)
[2019-04-01 08:12] LABS: Albumin Level 3.5 gm/dl (3.4-5.0); BUN Creatinine Ratio 24.7 (10-20); Calcium 9.6 mg/dl (8.5-10.1); Creatinine Clr Calc Pharmacy 83.1 ml/min; Est GFR (African American) 102.8; Est GFR (Non-African American) 88.7; Potassium 3.7 mmol/L (3.5-5.1)
--- NOTE | 2019-04-01 08:12 | Emergency Department Note ---
Entered by Kendra Mendiola acting as a scribe for History of Present Illness General Chief complaint: Abdominal Pain Stated complaint: abd pain Time Seen by Provider: 04/01/19 07:29 Source: family and EMS Mode of arrival: EMS Limitations: no limitations History of Present Illness Provider complaint: abd pain Onset (ago): hour(s) (this am) Location: abdomen Pain Consistency: + constant Quality: + other (UTI-like) Associated symptoms: + weakness; no fever/chills and no nausea/vomiting The patient is a 73 year old female who presents to the Emergency Room via EMS from home with complaints of constant abdominal pain that began this morning. EMS reports that the patient stated that her pain is located in the middle of her abdomen. They also note that the patient has a history of dementia. The patients reports that her symptoms feel similar to her history of UTIs. He explains that she had some leftover antibiotics from her previous UTI so she did take 2 yesterday. He also states that she has been eating but not drinking and is concerned for dehydration. He notes that that the patient also has not been able to get out of bed secondary to weakness and that her dementia has been getting worse. He denies any recent fevers, nausea, or vomiting. He reports that the patient did fall 2 nights ago but that she suffered no injuries. Per daughter, the patient has a history of a hiatal hernia. They state that she is not on any blood thinners. Home Medications Home Medications Medication Instructions Recorded Confirmed Type ascorbic acid (vitamin C) [Vitamin 500 mg PO PM 09/29/18 04/01/19 History C] calcium carbonate-vitamin D3 1 tab PO PM 09/29/18 04/01/19 History [Calcium 600 + D(3)] ferrous sulfate [iron] 325 mg PO TID 09/29/18 04/01/19 History gabapentin 600 mg PO QID 09/29/18 04/01/19 History memantine 10 mg PO BID 09/29/18 04/01/19 History simvastatin [Zocor] 40 mg PO HS 09/29/18 04/01/19 History venlafaxine 75 mg PO TID 09/29/18 04/01/19 History verapamil 240 mg PO QAM 09/29/18 04/01/19 History Cranberry 4200mg 4,200 mg PO BID 04/01/19 04/01/19 History acetaminophen [Mapap 650 mg PO Q4H PRN #30 tab 04/04/19 Rx (acetaminophen)] alprazolam [Xanax] 0.5 mg PO TID #10 tab 04/04/19 Rx cefdinir 300 mg PO BID #8 cap 04/04/19 Rx lisinopril [Zestril] 5 mg PO QAM #30 tab 04/04/19 Rx ofloxacin 2 drp OPHTHALMIC (EYE) Q4HWA 4 04/04/19 Rx Days #5 ml polyethylene glycol 3350 [Miralax] 17 g PO DAILY #30 ea 04/04/19 Rx Allergies Allergy/AdvReac Type Severity Reaction Status Date / Time Penicillins Allergy Intermediate Verified 04/01/19 08:39 ampicillin Allergy Unknown RASH Verified 04/01/19 08:39 Past Med/Surg History Medical History HTN (hypertension) (Chronic) Dementia (Chronic) Metabolic encephalopathy (Acute) Anxiety disorder Hiatal hernia Hyperlipidemia Myalgia Osteoarthritis UTI (urinary tract infection) Surgical History History of bilateral tubal ligation History of cataract extraction History of total bilateral knee replacement Family History Other Family history non-contributory Social History Preferred Language: Sudanese Communication Ability: Impaired Beliefs That Will Affect Care: None marital status: Current Living Situation: Spouse and Family Current Living Situation Comment: current occupational status: retired Feels Safe at Home: Yes Smoking Status: Never smoker Hx Alcohol Use: No Hx Substance Use: No Review of Systems See HPI for pertinent positives & negatives. and A total of 10 systems reviewed and were otherwise negative Physical Exam Vital Signs Vital Signs - 24 hr 04/01/19 07:46 04/01/19 08:47 04/01/19 10:02 Temperature 36.5 C Temperature Source Oral Sepsis Recent Fever Within 48 Hours No Sepsis New/Unexplained Change in Mental Status No Sepsis Action Taken by Nursing No Action Required Pulse Rate 81 Pulse Rate [Left Finger] 81 82 Respiratory Rate 14 20 22 Blood Pressure 199/109 H Blood Pressure [Left Arm] 146/87 H 156/93 H Blood Pressure Mean 139 Blood Pressure Mean [Left Arm] 106 114 Pulse Oximetry 95 92 92 Oxygen Delivery Method Room Air Room Air Room Air 04/01/19 10:15 Temperature Temperature Source Sepsis Recent Fever Within 48 Hours Sepsis New/Unexplained Change in Mental Status Sepsis Action Taken by Nursing Pulse Rate Pulse Rate [Left Finger] Respiratory Rate Blood Pressure Blood Pressure [Left Arm] Blood Pressure Mean Blood Pressure Mean [Left Arm] Pulse Oximetry Oxygen Delivery Method Room Air General: Chronically ill appearing older female who has dementia. No complaints. HEENT: Normal cephalic atraumatic. Pupils are equal round and reactive to light. Extraocular movements are intact. Oropharynx is pink with moist mucous membranes. No swelling of the mouth lips or tongue. Neck: Supple with a midline trachea. No meningeal signs or stiffness, no JVD or bruits. No Stridor. Chest: Clear to auscultation bilaterally. No wheezes or rhonchi. No increased work of breathing. Heart: regular rate and rhythm. Abdomen: Soft nontender, nondistended without rebound guarding or rigidity. Extremities: No cyanosis clubbing or edema. No calf tenderness or asymmetry Rectal: Performed with nurse ironing pleater. Large amount of impacted brown stool that was brown and heme negative. Spine/Back. Non tender to palpation. No CVA tenderness Skin: Good turgor without rashes. Neurologic exam: Cranial nerves two through 12 are intact. Motor and sensation are intact and symmetrical throughout. Course 0725: Past medical records reviewed. The patient was evaluated in room A3. A complete history and physical examination was performed. 0914: I reviewed the patient's case with Dr. Luz - [facility] Hospitalist. She will evaluate the patient for further management. Administered Medications Discontinued Medications Alprazolam (Xanax) 0.5 mg PO TID [facility] Stop: 05/01/19 13:59 Last Admin: 04/05/19 12:21 Dose: 0.5 mg Documented by: [id number] Admin: 04/05/19 07:40 Dose: 0.5 mg Documented by: [id number] Admin: 04/04/19 20:54 Dose: 0.5 mg Documented by: [id number] Admin: 04/04/19 13:10 Dose: 0.5 mg Documented by: [id number] Admin: 04/04/19 07:59 Dose: 0.5 mg Documented by: [id number] Admin: 04/03/19 20:09 Dose: 0.5 mg Documented by: [id number] Admin: 04/03/19 13:41 Dose: 0.5 mg Documented by: [id number] Admin: 04/03/19 11:36 Dose: Not Given Documented by: [id number] Admin: 04/02/19 21:32 Dose: 0.5 mg Documented by: [id number] Admin: 04/02/19 16:31 Dose: Not Given Documented by: [id number] Admin: 04/02/19 09:15 Dose: Not Given Documented by: [id number] Admin: 04/01/19 21:14 Dose: 0.5 mg Documented by: [id number] Admin: 04/01/19 13:47 Dose: 0.5 mg Documented by: [id number] Ascorbic Acid (Vitamin C) 500 mg PO PM [facility] Stop: 05/01/19 20:59 Last Admin: 04/04/19 20:51 Dose: 500 mg Documented by: [id number] Admin: 04/03/19 20:11 Dose: 500 mg Documented by: [id number] Admin: 04/02/19 21:33 Dose: 500 mg Documented by: [id number] Admin: 04/01/19 21:07 Dose: 500 mg Documented by: [id number] Cefdinir (Omnicef Cap) 300 mg PO BID JENNIFER Stop: 04/08/19 20:59 Last Admin: 04/05/19 07:37 Dose: 300 mg Documented by: [id number] Admin: 04/04/19 20:52 Dose: 300 mg Documented by: [id number] Admin: 04/04/19 07:57 Dose: 300 mg Documented by: [id number] Admin: 04/03/19 20:09 Dose: 300 mg Documented by: [id number] Enoxaparin Sodium (Lovenox) 40 mg SQ Q24H JENN[facility]ER Stop: 05/01/19 13:59 Last Admin: 04/05/19 12:20 Dose: Not Given Documented by: [id number] Admin: 04/04/19 13:09 Dose: 40 mg Documented by: [id number] Admin: 04/03/19 13:39 Dose: 40 mg Documented by: [id number] Admin: 04/02/19 14:28 Dose: 40 mg Documented by: [id number] Admin: 04/01/19 14:57 Dose: 40 mg Documented by: [id number] Ferrous Sulfate (Feosol) 325 mg PO TID JENN[facility]ER Stop: 05/01/19 13:59 Last Admin: 04/05/19 12:19 Dose: 325 mg Documented by: [id number] Admin: 04/05/19 07:38 Dose: 325 mg Documented by: [id number] Admin: 04/04/19 20:51 Dose: 325 mg Documented by: [id number] Admin: 04/04/19 13:09 Dose: 325 mg Documented by: [id number] Admin: 04/04/19 07:57 Dose: 325 mg Documented by: [id number] Admin: 04/03/19 20:11 Dose: 325 mg Documented by: [id number] Admin: 04/03/19 13:39 Dose: 325 mg Documented by: [id number] Admin: 04/03/19 07:39 Dose: 325 mg Documented by: [id number] Admin: 04/02/19 21:33 Dose: 325 mg Documented by: [id number] Admin: 04/02/19 14:28 Dose: 325 mg Documented by: [id number] Admin: 04/02/19 09:13 Dose: 325 mg Documented by: [id number] Admin: 04/01/19 21:08 Dose: 325 mg Documented by: [id number] Admin: 04/01/19 13:46 Dose: 325 mg Documented by: [id number] Gabapentin (Neurontin) 600 mg PO QID J[facility]ER Stop: 05/01/19 12:59 Last Admin: 04/05/19 12:19 Dose: 600 mg Documented by: [id number] Admin: 04/05/19 07:39 Dose: 600 mg Documented by: [id number] Admin: 04/04/19 20:49 Dose: 600 mg Documented by: [id number] Admin: 04/04/19 17:26 Dose: 600 mg Documented by: [id number] Admin: 04/04/19 13:08 Dose: 600 mg Documented by: [id number] Admin: 04/04/19 07:58 Dose: 600 mg Documented by: [id number] Admin: 04/03/19 20:09 Dose: 600 mg Documented by: [id number] Admin: 04/03/19 16:38 Dose: 600 mg Documented by: [id number] Admin: 04/03/19 13:39 Dose: 600 mg Documented by: [id number] Admin: 04/03/19 07:39 Dose: 600 mg Documented by: [id number] Admin: 04/02/19 21:32 Dose: 600 mg Documented by: [id number] Admin: 04/02/19 17:13 Dose: 600 mg Documented by: [id number] Admin: 04/02/19 13:00 Dose: 600 mg Documented by: [id number] Admin: 04/02/19 09:14 Dose: 600 mg Documented by: [id number] Admin: 04/01/19 21:07 Dose: 600 mg Documented by: [id number] Admin: 04/01/19 16:53 Dose: 600 mg Documented by: [id number] Admin: 04/01/19 13:45 Dose: 600 mg Documented by: [id number] Ceftriaxone Sodium (Rocephin) 1,000 mg in 50 mls @ 100 mls/hr IV NOW STA Stop: 04/01/19 10:11 Last Infusion: 04/01/19 10:30 Dose: 0 mls/hr Documented by: [id number] Admin: 04/01/19 09:58 Dose: 100 mls/hr Documented by: [id number] Ceftriaxone Sodium 2,000 mg/ (Dextrose) 70 mls @ 100 mls/hr IV Q24H JENNIFER; Protocol Stop: 04/07/19 07:59 Last Infusion: 04/03/19 08:35 Dose: 0 mls/hr Documented by: [id number] Admin: 04/03/19 07:46 Dose: 100 mls/hr Documented by: [id number] Infusion: 04/02/19 10:00 Dose: 0 mls/hr Documented by: [id number] Admin: 04/02/19 09:12 Dose: 100 mls/hr Documented by: [id number] Lisinopril (Zestril) 5 mg PO QAM [facility] Stop: 05/03/19 10:29 Last Admin: 04/05/19 07:38 Dose: 5 mg Documented by: [id number] Admin: 04/04/19 07:58 Dose: 5 mg Documented by: [id number] Admin: 04/03/19 11:36 Dose: 5 mg Documented by: [id number] Memantine (Namenda) 10 mg PO BID JENNIFER Stop: 05/01/19 11:55 Last Admin: 04/05/19 07:37 Dose: 10 mg Documented by: [id number] Admin: 04/04/19 20:51 Dose: 10 mg Documented by: [id number] Admin: 04/04/19 07:57 Dose: 10 mg Documented by: [id number] Admin: 04/03/19 20:11 Dose: 10 mg Documented by: [id number] Admin: 04/03/19 07:38 Dose: 10 mg Documented by: [id number] Admin: 04/02/19 21:33 Dose: 10 mg Documented by: [id number] Admin: 04/02/19 09:13 Dose: 10 mg Documented by: [id number] Admin: 04/01/19 21:07 Dose: 10 mg Documented by: [id number] Admin: 04/01/19 13:45 Dose: 10 mg Documented by: [id number] Multivitamins/Minerals (Caltrate Plus) 1 tab PO PM JENNIFER Stop: 05/01/19 20:59 Last Admin: 04/04/19 20:51 Dose: 1 tab Documented by: [id number] Admin: 04/03/19 20:10 Dose: 1 tab Documented by: [id number] Admin: 04/02/19 21:33 Dose: 1 tab Documented by: [id number] Admin: 04/01/19 21:08 Dose: 1 tab Documented by: [id number] Ofloxacin (Ocuflox 0.3%) 2 drops OP Q4HWA [facility]ER Stop: 04/11/19 11:59 Last Admin: 04/05/19 12:19 Dose: 2 drops Documented by: [id number] Admin: 04/05/19 07:37 Dose: 2 drops Documented by: [id number] Admin: 04/04/19 20:49 Dose: 2 drops Documented by: [id number] Admin: 04/04/19 15:47 Dose: 2 drops Documented by: [id number] Admin: 04/04/19 13:09 Dose: 2 drops Documented by: [id number] Admin: 04/04/19 07:58 Dose: 2 drops Documented by: [id number] Admin: 04/03/19 20:09 Dose: 2 drops Documented by: [id number] Admin: 04/03/19 16:38 Dose: 2 drops Documented by: [id number] Admin: 04/03/19 11:36 Dose: 2 drops Documented by: [id number] Admin: 04/03/19 07:38 Dose: 2 drops Documented by: [id number] Admin: 04/02/19 21:32 Dose: 2 drops Documented by: [id number] Admin: 04/02/19 17:12 Dose: 2 drops Documented by: [id number] Admin: 04/02/19 13:01 Dose: 2 drops Documented by: [id number] Admin: 04/02/19 09:13 Dose: 2 drops Documented by: [id number] Admin: 04/01/19 21:08 Dose: 2 drops Documented by: [id number] Admin: 04/01/19 16:53 Dose: 2 drops Documented by: [id number] Admin: 04/01/19 13:46 Dose: 2 drops Documented by: [id number] Polyethylene Glycol (Miralax Powder Packet) 17 gm PO DAILY JENN[facility]ER Stop: 05/01/19 11:55 Last Admin: 04/05/19 07:37 Dose: Not Given Documented by: [id number] Admin: 04/04/19 07:58 Dose: 17 gm Documented by: [id number] Admin: 04/03/19 07:39 Dose: 17 gm Documented by: [id number] Admin: 04/02/19 09:13 Dose: 17 gm Documented by: [id number] Admin: 04/01/19 13:46 Dose: 17 gm Documented by: [id number] Simvastatin (Zocor) 40 mg PO HS JENN[facility]ER Stop: 05/01/19 20:59 Last Admin: 04/04/19 20:51 Dose: 40 mg Documented by: [id number] Admin: 04/03/19 20:09 Dose: 40 mg Documented by: [id number] Admin: 04/02/19 21:32 Dose: 40 mg Documented by: [id number] Admin: 04/01/19 21:07 Dose: 40 mg Documented by: [id number] Venlafaxine HCl (Effexor) 75 mg PO TID JENN[facility]ER Stop: 05/01/19 13:59 Last Admin: 04/05/19 12:19 Dose: 75 mg Documented by: [id number] Admin: 04/05/19 07:38 Dose: 75 mg Documented by: [id number] Admin: 04/04/19 20:50 Dose: 75 mg Documented by: [id number] Admin: 04/04/19 13:08 Dose: 75 mg Documented by: [id number] Admin: 04/04/19 07:57 Dose: 75 mg Documented by: [id number] Admin: 04/03/19 20:10 Dose: 75 mg Documented by: [id number] Admin: 04/03/19 13:39 Dose: 75 mg Documented by: [id number] Admin: 04/03/19 07:39 Dose: 75 mg Documented by: [id number] Admin: 04/02/19 21:33 Dose: 75 mg Documented by: [id number] Admin: 04/02/19 14:28 Dose: 75 mg Documented by: [id number] Admin: 04/02/19 09:13 Dose: 75 mg Documented by: [id number] Admin: 04/01/19 21:08 Dose: 75 mg Documented by: [id number] Admin: 04/01/19 13:46 Dose: 75 mg Documented by: [id number] Verapamil HCl (Calan Sr) 240 mg PO QAM [facility] Stop: 05/01/19 11:55 Last Admin: 04/05/19 07:39 Dose: 240 mg Documented by: [id number] Admin: 04/04/19 07:58 Dose: 240 mg Documented by: [id number] Admin: 04/03/19 07:39 Dose: 240 mg Documented by: [id number] Admin: 04/02/19 09:16 Dose: 240 mg Documented by: [id number] Admin: 04/01/19 13:45 Dose: 240 mg Documented by: [id number] Medical Decision Making Differential Diagnosis Differential diagnosis includes: UTI, infection, constipation, dehydration, dementia, electrolyte and metabolic abnormality. Medical Records Attestation: I reviewed the patient's medical records. Home Medications Current Medication List: was personally reviewed by me Laboratory Data Attestation: I reviewed the patient's lab results. Result diagrams: 04/04/19 06:55 04/04/19 06:55 Lab Results 04/01/19 04/01/19 04/01/19 Range/Units 07:20 07:20 07:20 WBC 10.33 (4.8-10.8) K/uL RBC 5.48 H (4.2-5.4) M/uL Hgb 16.7 H (12.0-16.0) g/dL Hct 50.0 H (37-47) % MCV 91.2 (80-100) fL MCH 30.5 (25-34) pg MCHC 33.4 (32-36) g/dL RDW Std Deviation 48.0 H (36.4-46.3) fL RDW Coeff of Bharati 14.2 (11.5-14.5) % Plt Count 189 (130-400) K/uL MPV 12.7 H (7.4-10.4) fL Immature Gran % (Auto) 0.3 % Neut % (Auto) 76.2 % Lymph % (Auto) 15.3 % Dyer % (Auto) 7.2 % Eos % (Auto) 0.9 % Baso % (Auto) 0.1 % Immature Gran # (Auto) 0.03 H (0.00-0.02) K/uL Neut # (Auto) 7.88 H (1.4-6.5) K/uL Lymph # (Auto) 1.58 (1.2-3.4) K/uL Dyer # (Auto) 0.74 H (0.11-0.59) K/uL Eos # (Auto) 0.09 (0-0.5) K/uL Baso # (Auto) 0.01 (0-0.2) K/uL PT 10.3 (9.0-12.0) Seconds INR 1.0 (0.9-1.1) Sodium 141 (136-145) mmol/L Potassium 3.7 (3.5-5.1) mmol/L Chloride 102 (98-107) mmol/L Carbon Dioxide 33 H (21-32) mmol/L Anion Gap 5.0 (3-11) BUN 15 (7-18) mg/dl Creatinine 0.61 (0.6-1.2) mg/dl Est Cr Clr Drug Dosing 83.1 ml/min Est GFR ( Amer) 102.8 Est GFR (Non-Af Amer) 88.7 BUN/Creatinine Ratio 24.7 H (10-20) Glucose 102 H (70-99) mg/dl Calcium 9.6 (8.5-10.1) mg/dl Total Bilirubin 0.5 (0.2-1) mg/dl AST 17 (15-37) U/L ALT 16 (12-78) U/L Alkaline Phosphatase 119 H (45-117) U/L Total Protein 7.6 (6.4-8.2) gm/dl Albumin 3.5 (3.4-5.0) gm/dl Globulin 4.1 H (2.5-4.0) gm/dl Albumin/Globulin Ratio 0.9 (0.9-2) Lipase 116 (73-393) U/L Urine Color Urine Appearance (Clear) Urine pH (4.5-7.5) Ur Specific [place] (1.000-1.030) Urine Protein (Negative) Urine Glucose (UA) (Negative) Urine Ketones (Negative) Urine Blood (Negative) Urine Nitrite (Negative) Urine Bilirubin (Negative) Urine Urobilinogen (Negative) Ur Leukocyte Esterase (Negative) Urine WBC (Auto) (0-5) /hpf Urine RBC (Auto) (0-4) /hpf U Hyaline Cast (Auto) (0-5) /lpf U Epithel Cells (Auto) (0-5) /lpf Urine Bacteria (Auto) (Negative) 04/01/19 Range/Units 07:35 WBC (4.8-10.8) K/uL RBC (4.2-5.4) M/uL Hgb (12.0-16.0) g/dL Hct (37-47) % MCV (80-100) fL MCH (25-34) pg MCHC (32-36) g/dL RDW Std Deviation (36.4-46.3) fL RDW Coeff of Bharati (11.5-14.5) % Plt Count (130-400) K/uL MPV (7.4-10.4) fL Immature Gran % (Auto) % Neut % (Auto) % Lymph % (Auto) % Dyer % (Auto) % Eos % (Auto) % Baso % (Auto) % Immature Gran # (Auto) (0.00-0.02) K/uL Neut # (Auto) (1.4-6.5) K/uL Lymph # (Auto) (1.2-3.4) K/uL Dyer # (Auto) (0.11-0.59) K/uL Eos # (Auto) (0-0.5) K/uL Baso # (Auto) (0-0.2) K/uL PT (9.0-12.0) Seconds INR (0.9-1.1) Sodium (136-145) mmol/L Potassium (3.5-5.1) mmol/L Chloride (98-107) mmol/L Carbon Dioxide (21-32) mmol/L Anion Gap (3-11) BUN (7-18) mg/dl Creatinine (0.6-1.2) mg/dl Est Cr Clr Drug Dosing ml/min Est GFR ( Amer) Est GFR (Non-Af Amer) BUN/Creatinine Ratio (10-20) Glucose (70-99) mg/dl Calcium (8.5-10.1) mg/dl Total Bilirubin (0.2-1) mg/dl AST (15-37) U/L ALT (12-78) U/L Alkaline Phosphatase (45-117) U/L Total Protein (6.4-8.2) gm/dl Albumin (3.4-5.0) gm/dl Globulin (2.5-4.0) gm/dl Albumin/Globulin Ratio (0.9-2) Lipase (73-393) U/L Urine Color Yellow Urine Appearance Clear (Clear) Urine pH >= 9.0 H (4.5-7.5) Ur Specific [place] 1.016 (1.000-1.030) Urine Protein Negative (Negative) Urine Glucose (UA) Negative (Negative) Urine Ketones Negative (Negative) Urine Blood 1+ H (Negative) Urine Nitrite Positive A (Negative) Urine Bilirubin Negative (Negative) Urine Urobilinogen Negative (Negative) Ur Leukocyte Esterase Trace H (Negative) Urine WBC (Auto) 1-5 (0-5) /hpf Urine RBC (Auto) 10-30 H (0-4) /hpf U Hyaline Cast (Auto) 1-5 (0-5) /lpf U Epithel Cells (Auto) 0-5 (0-5) /lpf Urine Bacteria (Auto) 2+ H (Negative) Blood Pressure Blood Pressure Findings: Elevated blood pressure Blood Pressure Disposition: further management by hospitalist MDM Narrative This patient is brought in by EMS. She has severe dementia and has apparently been complaining of lower abdominal pain. She has frequent UTIs according to her family. There is been no trauma. No fever chills or other symptoms. On my exam, she does not have any complaints or tenderness. She does have a large amount of impacted stool which was disimpacted in the presence of a female nurse heater furnace. She was guaiac negative. I talked her family at length they are concerned about her functional decline at home and she is getting harder to care for. Her urinalysis does show 2+ bacteria with a small amount of white cells that could be consistent with a UTI. This was a cath specimen. She has no white count or fever to suggest sepsis or infection. I talked to the family at length. They are having a hard time caring for her and she seems of gotten more confused with a UTI as well and has underlying dementia. I do think she needs to be admitted for further treatment her for her UTI and weakness. Impression & Plan Weakness, UTI (urinary tract infection), Dementia, Metabolic encephalopathy Discharge Plan Visit Data *Final* Discharge Date/Time: 04/01/19 11:35 Chief Complaint: Abdominal Pain Stated Complaint: abd pain ED Provider: Mitch Hartman Discharge Problem: Weakness, UTI (urinary tract infection), Dementia, Metabolic encephalopathy Patient Disposition: Admitted As Inpatient Condition: Fair Discharge Instructions Interventions: ED Discharge Assessment Last Done: 04/01/19 11:35 The scribe's documentation has been prepared under my direction and personally reviewed by me in its entirety. I confirm that the note above accurately reflects all work, treatment, procedures, and medical decision making performed by me.
[2019-04-01 08:15] LABS: Albumin Globulin Ratio 0.9 (0.9-2); Bilirubin,Total 0.5 mg/dl (0.2-1); Globulin 4.1 gm/dl (2.5-4.0); Total Protein 7.6 gm/dl (6.4-8.2)
[2019-04-01] MEDS ORDERED: cefTRIAXone SODIUM 1,000 MG/50 ML BAG IV STA (09:42)
--- NOTE | 2019-04-01 11:02 | History & Physical Report ---
Date of Service April 01, 2019 Assessment & Plan (1) UTI (urinary tract infection): Presented with suprapubic abdominal pain and generalized weakness, grossly abnormal urinalysis and history of recurrent UTI. No evidence of sepsis on admission -Admit to medical floor -Started Rocephin 2 g IV every 24 hours -Follow urine culture (2) Weakness: Likely secondary to urinary tract infection -Treating UTI as above -PT/OT consultations placed - will likely need long-term facility/rehab (3) HTN (hypertension): Blood pressures are elevated upon admission now improving -Continue home medication of verapamil 240 mg p.o. once daily-first dose now (4) Dementia: Moderate to severe upon questioning, worsening over the last 3 to 4 years as per family members. She does not even know who her and daughter are at the bedside She does eat and take her pills and is fairly cooperative at home, however her has been her sole repairer hairspring. He is also been taking care of another daughter that has health issues. Family is looking for permanent placement in a nursing facility at this point -Supportive care -Continue memantine 10 mg p.o. twice daily (5) Hyperlipidemia: Continue Zocor 40 mill grams daily (6) Hiatal hernia: Not on any treatment for this but family notes she has this diagnosis (7) Anxiety disorder: Related to her dementia -She is on a standing dose of Xanax 3 times a day at 0800, 1400, and 2000, with an extra dose as needed -Continue Effexor 75 mg p.o. 3 times daily -Supportive care (8) Myalgia: Is on gabapentin 600 mg p.o. 4 times daily for this Appears comfortable at this time (9) Osteoarthritis: Continue gabapentin (10) DVT prophylaxis: Lovenox SQ Disposition-admit to medical service History of Present Illness Chief Complaint: Lower abdominal pain, weakness Primary Care Provider: Dontae Toure MD This patient is a 73-year-old female with moderate to severe dementia, HTN, HL, hiatal hernia, OA, anxiety disorder, myalgias, and anemia who was brought in to the ER for 3 days of worsening generalized weakness and lower abdominal pains. She has a history of UTI in the past and her suspected such for the last few days. Due to her dementia, she is not able to answer many questions, but continued to complain of suprapubic abdominal pains. Her denied that she had any fevers/chills/sweats at home, her urine did not smell foul or have blood in it. She is also been constipated with no bowel movement for the past 3 to 4 days. She does adult diapers and is incontinent to stool and urine. Her also has not been able to get her to stand up without having her legs buckle underneath her for the last several days. Has been on the daughter at the bedside reports that they are very interested in having the patient permanently placed in a nursing facility. Her UA was grossly positive for infection. She was afebrile and had no signs of sepsis. In the ER, she was given IV Rocephin. Allergies Allergy/AdvReac Type Severity Reaction Status Date / Time Penicillins Allergy Intermediate Verified 04/01/19 08:39 ampicillin Allergy Unknown RASH Verified 04/01/19 08:39 Home Medications Home Medications Medication Instructions Recorded Confirmed Type alprazolam [Xanax] 0.5 mg PO QID 09/29/18 04/01/19 History ascorbic acid (vitamin C) [Vitamin 500 mg PO PM 09/29/18 04/01/19 History C] calcium carbonate-vitamin D3 1 tab PO PM 09/29/18 04/01/19 History [Calcium 600 + D(3)] ferrous sulfate [iron] 325 mg PO TID 09/29/18 04/01/19 History gabapentin 600 mg PO QID 09/29/18 04/01/19 History memantine 10 mg PO BID 09/29/18 04/01/19 History simvastatin [Zocor] 40 mg PO HS 09/29/18 04/01/19 History venlafaxine 75 mg PO TID 09/29/18 04/01/19 History verapamil 240 mg PO QAM 09/29/18 04/01/19 History Cranberry 4200mg 4,200 mg PO BID 04/01/19 04/01/19 History Past Med/Surg History Medical History HTN (hypertension) (Chronic) Dementia (Chronic) Metabolic encephalopathy Anxiety disorder Hiatal hernia Hyperlipidemia Myalgia Osteoarthritis UTI (urinary tract infection) Surgical History History of bilateral tubal ligation History of cataract extraction History of total bilateral knee replacement Family History Other Family history non-contributory Social History Preferred Language: Spanish Communication Ability: Effective Beliefs That Will Affect Care: None marital status: Current Living Situation: Spouse and Family Current Living Situation Comment: current occupational status: retired Other Information That Helps Us Care for You: No Feels Safe at Home: Yes Safety Concerns: Feels Safe At This Time Smoking Status: Never smoker Hx Alcohol Use: No Hx Substance Use: No Review of Systems Review of Systems: All systems reviewed & are unremarkable except as noted in HPI & below Has had some left eye irritation and has been pulling at her lower eyelid as per family the last few days Physical Exam Constitutional: WD/WN, vitals as above Eyes: + conjunctival abnormality (Mild erythema with crusty drainage from the left eye) and PERRL; no scleral abnormality ENMT: external ear and nose normal, oropharynx normal Neck: trachea midline, no thyromegaly Respiratory: normal respiratory effort, lungs clear to auscultation Cardiovascular: RRR, no murmur, no edema Gastrointestinal (Abdomen): normal bowel sounds, soft, nontender, no hepatosplenomegaly (Except very minimal tenderness in the suprapubic region without guarding or rebound) Musculoskeletal: Extremities: extremities normal to inspection; no cyanosis and no clubbing Skin: no rashes, warm and dry Neurologic: moves all extremities and awake; no focal motor deficits Psychiatric: Orientation: alert, oriented to person and cooperative; + not oriented to place and + not oriented to time Eye Contact: + fair eye contact Results & Data Vital Signs (Past 12 Hours) Vital Signs Temp Pulse Pulse Resp BP BP Pulse Ox 04/01/19 10:02 82 22 156/93 H 92 04/01/19 08:47 81 20 146/87 H 92 04/01/19 07:46 36.5 C 81 14 199/109 H 95 Laboratory Results 04/01/19 04/01/19 04/01/19 Range/Units 07:35 07:20 07:20 WBC (4.8-10.8) K/uL RBC (4.2-5.4) M/uL Hgb (12.0-16.0) g/dL Hct (37-47) % MCV (80-100) fL MCH (25-34) pg MCHC (32-36) g/dL RDW Std Deviation (36.4-46.3) fL RDW Coeff of Bharati (11.5-14.5) % Plt Count (130-400) K/uL MPV (7.4-10.4) fL Immature Gran % (Auto) % Neut % (Auto) % Lymph % (Auto) % [place] % (Auto) % Eos % (Auto) % Baso % (Auto) % Immature Gran # (Auto) (0.00-0.02) K/uL Neut # (Auto) (1.4-6.5) K/uL Lymph # (Auto) (1.2-3.4) K/uL [place] # (Auto) (0.11-0.59) K/uL Eos # (Auto) (0-0.5) K/uL Baso # (Auto) (0-0.2) K/uL PT 10.3 (9.0-12.0) Seconds INR 1.0 (0.9-1.1) Sodium 141 (136-145) mmol/L Potassium 3.7 (3.5-5.1) mmol/L Chloride 102 (98-107) mmol/L Carbon Dioxide 33 H (21-32) mmol/L Anion Gap 5.0 (3-11) BUN 15 (7-18) mg/dl Creatinine 0.61 (0.6-1.2) mg/dl Est Cr Clr Drug Dosing 83.1 ml/min Est GFR ( Amer) 102.8 Est GFR (Non-Af Amer) 88.7 BUN/Creatinine Ratio 24.7 H (10-20) Glucose 102 H (70-99) mg/dl Calcium 9.6 (8.5-10.1) mg/dl Total Bilirubin 0.5 (0.2-1) mg/dl AST 17 (15-37) U/L ALT 16 (12-78) U/L Alkaline Phosphatase 119 H (45-117) U/L Total Protein 7.6 (6.4-8.2) gm/dl Albumin 3.5 (3.4-5.0) gm/dl Globulin 4.1 H (2.5-4.0) gm/dl Albumin/Globulin Ratio 0.9 (0.9-2) Lipase 116 (73-393) U/L Urine Color Yellow Urine Appearance Clear (Clear) Urine pH >= 9.0 H (4.5-7.5) Ur Specific [place] 1.016 (1.000-1.030) Urine Protein Negative (Negative) Urine Glucose (UA) Negative (Negative) Urine Ketones Negative (Negative) Urine Blood 1+ H (Negative) Urine Nitrite Positive A (Negative) Urine Bilirubin Negative (Negative) Urine Urobilinogen Negative (Negative) Ur Leukocyte Esterase Trace H (Negative) Urine WBC (Auto) 1-5 (0-5) /hpf Urine RBC (Auto) 10-30 H (0-4) /hpf U Hyaline Cast (Auto) 1-5 (0-5) /lpf U Epithel Cells (Auto) 0-5 (0-5) /lpf Urine Bacteria (Auto) 2+ H (Negative) 04/01/19 Range/Units 07:20 WBC 10.33 (4.8-10.8) K/uL RBC 5.48 H (4.2-5.4) M/uL Hgb 16.7 H (12.0-16.0) g/dL Hct 50.0 H (37-47) % MCV 91.2 (80-100) fL MCH 30.5 (25-34) pg MCHC 33.4 (32-36) g/dL RDW Std Deviation 48.0 H (36.4-46.3) fL RDW Coeff of Bharati 14.2 (11.5-14.5) % Plt Count 189 (130-400) K/uL MPV 12.7 H (7.4-10.4) fL Immature Gran % (Auto) 0.3 % Neut % (Auto) 76.2 % Lymph % (Auto) 15.3 % [place] % (Auto) 7.2 % Eos % (Auto) 0.9 % Baso % (Auto) 0.1 % Immature Gran # (Auto) 0.03 H (0.00-0.02) K/uL Neut # (Auto) 7.88 H (1.4-6.5) K/uL Lymph # (Auto) 1.58 (1.2-3.4) K/uL [place] # (Auto) 0.74 H (0.11-0.59) K/uL Eos # (Auto) 0.09 (0-0.5) K/uL Baso # (Auto) 0.01 (0-0.2) K/uL PT (9.0-12.0) Seconds INR (0.9-1.1) Sodium (136-145) mmol/L Potassium (3.5-5.1) mmol/L Chloride (98-107) mmol/L Carbon Dioxide (21-32) mmol/L Anion Gap (3-11) BUN (7-18) mg/dl Creatinine (0.6-1.2) mg/dl Est Cr Clr Drug Dosing ml/min Est GFR ( Amer) Est GFR (Non-Af Amer) BUN/Creatinine Ratio (10-20) Glucose (70-99) mg/dl Calcium (8.5-10.1) mg/dl Total Bilirubin (0.2-1) mg/dl AST (15-37) U/L ALT (12-78) U/L Alkaline Phosphatase (45-117) U/L Total Protein (6.4-8.2) gm/dl Albumin (3.4-5.0) gm/dl Globulin (2.5-4.0) gm/dl Albumin/Globulin Ratio (0.9-2) Lipase (73-393) U/L Urine Color Urine Appearance (Clear) Urine pH (4.5-7.5) Ur Specific [place] (1.000-1.030) Urine Protein (Negative) Urine Glucose (UA) (Negative) Urine Ketones (Negative) Urine Blood (Negative) Urine Nitrite (Negative) Urine Bilirubin (Negative) Urine Urobilinogen (Negative) Ur Leukocyte Esterase (Negative) Urine WBC (Auto) (0-5) /hpf Urine RBC (Auto) (0-4) /hpf U Hyaline Cast (Auto) (0-5) /lpf U Epithel Cells (Auto) (0-5) /lpf Urine Bacteria (Auto) (Negative) ECG Additional Comments: Normal sinus rhythm, old inferior infarct, nonspecific ST changes in the inferior leads, nonspecific T wave changes in the lateral leads Code Status & VTE Plan Code Status DNR/DNI as per discussion with her who is her decision-maker VTE Prophylaxis Plan VTE Prophylaxis will be ordered: Yes PG Care Time/CCT Total # of Minutes Spent Total Time Spent with Patient: Total time spent is greater than 50% in coordination of care (as documented) at patient's floor/unit and/or counseling patient: Spent 35 minutes
[2019-04-01] MEDS ORDERED: MAGNESIUM HYDROXIDE SUSP 30 ML UDC PO PRN (11:56)
[2019-04-01] MEDS ORDERED: ACETAMINOPHEN 325 MG TAB PO PRN (11:56)
[2019-04-01] MEDS ORDERED: ALUMINUM/MAGNESIUM SUSP 30 ML UDC PO PRN (11:56)
[2019-04-01] MEDS ORDERED: ONDANSETRON INJ 2 MG/ML 2 ML VIAL IV PRN (11:56)
[2019-04-01 12:59] LABS: Prothrombin Time 10.3 Seconds (9.0-12.0)
[2019-04-01] MEDS: GABAPENTIN 600 MG TAB PO SCH ×3 (13:45→21:07)
[2019-04-01] MEDS: VERAPAMIL HCL 240 MG TABCR PO SCH (13:45)
[2019-04-01] MEDS: MEMANTINE HCL 10 MG TAB PO SCH ×2 (13:45→21:07)
[2019-04-01] MEDS: VENLAFAXINE HCL 37.5 MG TAB PO SCH ×2 (13:46→21:08)
[2019-04-01] MEDS: POLYETHYLENE (MIRALAX) 17 GM PACK PO SCH (13:46)
[2019-04-01] MEDS: OFLOXACIN 0.3% OP SOLN 5 ML BTL OP SCH ×3 (13:46→21:08)
[2019-04-01] MEDS: FERROUS SULFATE 325 MG TAB PO SCH ×2 (13:46→21:08)
[2019-04-01] MEDS: ALPRAZolam 0.5 MG TABLET PO SCH ×2 (13:47→21:14)
[2019-04-01] MEDS ORDERED: VENLAFAXINE HCL 75 MG TAB PO SCH (14:00)
[2019-04-01] MEDS: ENOXAPARIN INJ 40 MG/0.4 ML SYR SQ SCH (14:57)
[2019-04-01] MEDS: ASCORBIC ACID 500 MG TAB PO SCH (21:07)
[2019-04-01] MEDS: SIMVASTATIN 40 MG TAB PO SCH (21:07)
[2019-04-01] MEDS: CALCIUM 600MG + VIT D 400 IU TAB PO SCH (21:08)
[2019-04-02] MEDS: cefTRIAXone SODIUM 2,000 MG in DEXTROSE 5% 50 ML IV SCH (09:12)
[2019-04-02] MEDS: VENLAFAXINE HCL 37.5 MG TAB PO SCH ×3 (09:13→21:33)
[2019-04-02] MEDS: POLYETHYLENE (MIRALAX) 17 GM PACK PO SCH (09:13)
[2019-04-02] MEDS: MEMANTINE HCL 10 MG TAB PO SCH ×2 (09:13→21:33)
[2019-04-02] MEDS: OFLOXACIN 0.3% OP SOLN 5 ML BTL OP SCH ×4 (09:13→21:32)
[2019-04-02] MEDS: FERROUS SULFATE 325 MG TAB PO SCH ×3 (09:13→21:33)
[2019-04-02] MEDS: GABAPENTIN 600 MG TAB PO SCH ×4 (09:14→21:32)
[2019-04-02] MEDS: ALPRAZolam 0.5 MG TABLET PO SCH ×3 (09:15→21:32)
[2019-04-02] MEDS: VERAPAMIL HCL 240 MG TABCR PO SCH (09:16)
[2019-04-02] MEDS: ENOXAPARIN INJ 40 MG/0.4 ML SYR SQ SCH (14:28)
--- NOTE | 2019-04-02 17:18 | Hospitalist Progress Note ---
Date of Service April 02, 2019 Assessment & Plan (1) UTI (urinary tract infection): Presented with suprapubic abdominal pain and generalized weakness, grossly abnormal urinalysis and history of recurrent UTI. No evidence of sepsis on admission Urine culture with E. coli, sensitivities still pending -Continue Rocephin 2 g IV every 24 hours -Follow urine culture for sensitivities and then hopeful to switch to oral antibiotics for discharge (2) Weakness: Likely secondary to urinary tract infection -Treating UTI as above -PT/OT consultations ordered and completed-both recommending retirement facility after discharge Was able to walk 3 feet forward and backward today with physical therapy which is an improvement from admission (3) HTN (hypertension): Blood pressures are elevated upon admission now improving but remain mildly elevated -Continue home medication of verapamil 240 mg p.o. once daily -Consider adding on lisinopril if blood pressures remain elevated by tomorrow (4) Dementia: Moderate to severe upon questioning of family members, worsening over the last 3 to 4 years as per family members. She does not even know who her and daughter are at the bedside She does eat and take her pills and is fairly cooperative at home, however her has been her sole digital campaign manager. He is also been taking care of another daughter that has health issues. Family is looking for permanent placement in a nursing facility at this point -Supportive care -Continue memantine 10 mg p.o. twice daily (5) Hyperlipidemia: Continue Zocor 40 MG daily (6) Hiatal hernia: Not on any treatment for this but family notes she has this diagnosis (7) Anxiety disorder: Related to her dementia -She is on a standing dose of Xanax 3 times a day at 0800, 1400, and 2000, with an extra dose as needed -Continue Effexor 75 mg p.o. 3 times daily -Supportive care (8) Myalgia: Is on gabapentin 600 mg p.o. 4 times daily for this Appears comfortable at this time (9) Osteoarthritis: Continue gabapentin (10) DVT prophylaxis: Lovenox SQ Disposition-continued stay, awaiting sensitivity and urine culture and then can have placement at a retirement facility-hopeful for discharge to SNF tomorrow Discussed case with case management-referrals placed to rehab facilities today Subjective Patient has no complaints but is confused. She denies pain in her belly. There is no family present at the bedside when I saw her today Review of Systems Review of Systems: Unobtainable due to cognitive status Physical Exam Constitutional: WD/WN, vitals as above Eyes: PERRL; no scleral abnormality ENMT: external ear and nose normal, oropharynx normal Neck: trachea midline, no thyromegaly Respiratory: normal respiratory effort, lungs clear to auscultation Cardiovascular: RRR, no murmur, no edema Gastrointestinal (Abdomen): normal bowel sounds, soft, nontender, no hepatosplenomegaly Musculoskeletal: Extremities: extremities normal to inspection; no cyanosis and no clubbing Skin: no rashes, warm and dry Neurologic: moves all extremities and awake; no focal motor deficits Psychiatric: Orientation: alert, oriented to person and cooperative; + not oriented to place and + not oriented to time Eye Contact: + fair eye contact Results & Data Vital Signs (Past 12 Hours) Vital Signs Temp Pulse Resp BP Pulse Ox 04/02/19 15:40 36.4 C L 77 18 150/83 H 92 04/02/19 07:52 36.7 C 75 18 185/97 H 94 Laboratory Results Urine culture with E. coli, sensitivity pending PG Care Time/CCT Total # of Minutes Spent Total Time Spent with Patient: Total time spent is greater than 50% in coordination of care (as documented) at patient's floor/unit and/or counseling patient:
[2019-04-02] MEDS: SIMVASTATIN 40 MG TAB PO SCH (21:32)
[2019-04-02] MEDS: CALCIUM 600MG + VIT D 400 IU TAB PO SCH (21:33)
[2019-04-02] MEDS: ASCORBIC ACID 500 MG TAB PO SCH (21:33)
[2019-04-03] MEDS: MEMANTINE HCL 10 MG TAB PO SCH ×2 (07:38→20:11)
[2019-04-03] MEDS: OFLOXACIN 0.3% OP SOLN 5 ML BTL OP SCH ×4 (07:38→20:09)
[2019-04-03] MEDS: POLYETHYLENE (MIRALAX) 17 GM PACK PO SCH (07:39)
[2019-04-03] MEDS: FERROUS SULFATE 325 MG TAB PO SCH ×3 (07:39→20:11)
[2019-04-03] MEDS: GABAPENTIN 600 MG TAB PO SCH ×4 (07:39→20:09)
[2019-04-03] MEDS: VENLAFAXINE HCL 37.5 MG TAB PO SCH ×3 (07:39→20:10)
[2019-04-03] MEDS: VERAPAMIL HCL 240 MG TABCR PO SCH (07:39)
[2019-04-03] MEDS: cefTRIAXone SODIUM 2,000 MG in DEXTROSE 5% 50 ML IV SCH (07:46)
[2019-04-03] MEDS: ALPRAZolam 0.5 MG TABLET PO SCH ×3 (11:36→20:09)
[2019-04-03] MEDS: LISINOPRIL 5 MG TAB PO SCH (11:36)
[2019-04-03] MEDS: ENOXAPARIN INJ 40 MG/0.4 ML SYR SQ SCH (13:39)
--- NOTE | 2019-04-03 18:39 | Hospitalist Progress Note ---
Date of Service April 03, 2019 Assessment & Plan (1) UTI (urinary tract infection): Presented with suprapubic abdominal pain and generalized weakness, grossly abnormal urinalysis and history of recurrent UTI. No evidence of sepsis on admission. Urine culture was positive for E. coli. Converted Rocephin IV to Cefdinir 300 mg PO BID per UC sensitivities.-We will plan to finish out a 7-day course (2) Weakness: Likely secondary to urinary tract infection Treatment for UTI as noted above PT/OT recommending SNF -- will be transferred to [facility] on 04/04/19. (3) HTN (hypertension): Blood pressures were elevated upon admission, now slightly improving. Continue home Verapamil 240 mg PO daily. Added Lisinopril 5 mg PO daily starting this morning due to uncontrolled BP. (4) Dementia: Moderate to severe upon questioning of family members, worsening over the last 3 to 4 years as per family members. She does not even know who her and daughter are at the bedside She does eat and take her pills and is fairly cooperative at home, however her has been her sole contract specialist. He is also been taking care of another daughter that has health issues. Family is looking for permanent placement in a nursing facility at this point -- transfer to [facility] on 04/04/19. - Continue Memantine 10 mg PO BID. (5) Hyperlipidemia: Continue Zocor 40 mg daily. (6) Hiatal hernia: Not on any treatment for this but family notes she has this diagnosis. (7) Anxiety disorder: Related to her dementia Continue standing dose of Xanax 3 times a day at 0800, 1400, and 2000; extra dose prn. Continue Effexor 75 mg PO TID. Supportive care as needed. (8) Myalgia: On gabapentin 600 mg PO QID Appears comfortable at this time (9) Osteoarthritis: Continue Gabapentin as prescribed. (10) DVT prophylaxis: Lovenox subQ q24hr. Dispo: Discharge to [facility] on 04/04/19, case management following. Supervising Physician Co-Signing Physician Notes PA Supervision Note: I did not personally see or examine the patient today, but I verified all pinzon points of MARISABEL Demarco's assessment and plan with the following exceptions/additions: None Subjective Pt. is doing well today. She is pleasantly confused. Denies pain, chest pain, SOB, N/V. PO intake is good, drinking fluids. Plan for placement pending acceptance. Review of Systems Review of Systems: Other (Limited review of systems obtained due to dementia. ) Constitutional: no fever, no fatigue and no weakness Respiratory: no cough and no dyspnea Cardiovascular: no chest pain and no edema Gastrointestinal: no abdominal pain, no nausea and no constipation Musculoskeletal: no back pain and no joint pain Integumentary: no non-healing lesions Allergy / Immunological: no rash Physical Exam Physical Exam: General: In no apparent distress HEENT: NC/AT; PERRLA with EOMI; [place] conjunctiva, MMM. Neck: Supple and nontender Cardiac: RRR Lungs: CTA bilaterally Abdomen: Bowel normoactive X 4; Nontender to palpation Extremities: Warm. No edema present Neuro: No focal weakness; not alert to person or place. Skin: No rash Results & Data Vital Signs (Past 12 Hours) Vital Signs Temp Pulse Resp BP Pulse Ox 04/03/19 15:35 36.8 C 57 L 20 122/72 93 04/03/19 07:11 37 C 73 16 161/89 H 91 Laboratory Results Urine culture with E. coli with resistance to fluoroquinolones and intermediate resistance to cefoxitin and cefuroxime PG Care Time/CCT Total # of Minutes Spent Total Time Spent with Patient: Total time spent is greater than 50% in coordination of care (as documented) at patient's floor/unit and/or counseling patient:
[2019-04-03] MEDS: SIMVASTATIN 40 MG TAB PO SCH (20:09)
[2019-04-03] MEDS: CEFDINIR 300 MG CAP PO SCH (20:09)
[2019-04-03] MEDS: CALCIUM 600MG + VIT D 400 IU TAB PO SCH (20:10)
[2019-04-03] MEDS: ASCORBIC ACID 500 MG TAB PO SCH (20:11)
[2019-04-04 07:17] LABS: Basophils # (auto) 0.01 K/uL (0-0.2); Basophils % (auto) 0.1 %; Eosinophils # (auto) 0.13 K/uL (0-0.5); Eosinophils % (auto) 1.7 %; Hematocrit (blood only) 43.9 % (37-47); Hemoglobin 14.3 g/dL (12.0-16.0); Immature Granulocytes # (auto) 0.02 K/uL (0.00-0.02); Immature Granulocytes % (auto) 0.3 %; Lymphocytes # (auto) 1.96 K/uL (1.2-3.4); Lymphocytes % (auto) 24.9 %; Mean Corpuscular Hgb Conc 32.6 g/dL (32-36); Mean Corpuscular Volume 90.3 fL (80-100); Mean Platelet Volume 11.5 fL (7.4-10.4); Monocytes % (auto) 10.2 %; Neutrophils # (auto) 4.94 K/uL (1.4-6.5); Neutrophils % (auto) 62.8 %; Platelet Count 186 K/uL (130-400); RDW Coefficient of Variation 14.2 % (11.5-14.5); RDW Standard Deviation 46.9 fL (36.4-46.3); Red Blood Count 4.86 M/uL (4.2-5.4); White Blood Count 7.86 K/uL (4.8-10.8)
[2019-04-04 07:50] LABS: Albumin Level 2.9 gm/dl (3.4-5.0); BUN Creatinine Ratio 23.5 (10-20); Creatinine Clr Calc Pharmacy 81.8 ml/min; Est GFR (African American) 102.2; Est GFR (Non-African American) 88.2; Potassium 3.7 mmol/L (3.5-5.1)
[2019-04-04 07:53] LABS: Albumin Globulin Ratio 0.8 (0.9-2); Bilirubin,Total 0.3 mg/dl (0.2-1); Globulin 3.5 gm/dl (2.5-4.0); Total Protein 6.4 gm/dl (6.4-8.2)
[2019-04-04] MEDS: VENLAFAXINE HCL 37.5 MG TAB PO SCH ×3 (07:57→20:50)
[2019-04-04] MEDS: CEFDINIR 300 MG CAP PO SCH ×2 (07:57→20:52)
[2019-04-04] MEDS: MEMANTINE HCL 10 MG TAB PO SCH ×2 (07:57→20:51)
[2019-04-04] MEDS: FERROUS SULFATE 325 MG TAB PO SCH ×3 (07:57→20:51)
[2019-04-04] MEDS: GABAPENTIN 600 MG TAB PO SCH ×4 (07:58→20:49)
[2019-04-04] MEDS: POLYETHYLENE (MIRALAX) 17 GM PACK PO SCH (07:58)
[2019-04-04] MEDS: VERAPAMIL HCL 240 MG TABCR PO SCH (07:58)
[2019-04-04] MEDS: LISINOPRIL 5 MG TAB PO SCH (07:58)
[2019-04-04] MEDS: OFLOXACIN 0.3% OP SOLN 5 ML BTL OP SCH ×4 (07:58→20:49)
[2019-04-04] MEDS: ALPRAZolam 0.5 MG TABLET PO SCH ×3 (07:59→20:54)
[2019-04-04] MEDS: ENOXAPARIN INJ 40 MG/0.4 ML SYR SQ SCH (13:09)
--- NOTE | 2019-04-04 18:14 | Hospitalist Progress Note ---
Date of Service April 04, 2019 Assessment & Plan (1) UTI (urinary tract infection): Presented with suprapubic abdominal pain and generalized weakness, grossly abnormal urinalysis and history of recurrent UTI. No evidence of sepsis on admission. Urine culture was positive for E. coli. Converted Rocephin IV to Cefdinir 300 mg PO BID per UC sensitivities.-We will plan to finish out a 7-day course-today is day#3 overall (2) Weakness: Likely secondary to urinary tract infection Treatment for UTI as noted above PT/OT recommending SNF -- was to be transferred to [facility] today but transport could not be arranged (3) HTN (hypertension): Blood pressures were elevated upon admission, now improved with adding on lisinopril Continue home Verapamil 240 mg PO daily. Added Lisinopril 5 mg PO daily (4) Dementia: Moderate to severe upon questioning of family members, worsening over the last 3 to 4 years as per family members. She does not even know who her and daughter are at the bedside She does eat and take her pills and is fairly cooperative at home, however her has been her sole senior clinical data coordinator. He is also been taking care of another claire osorio that has health issues. Family is looking for permanent placement in a nursing facility at this point -- transfer to [facility] on 04/04/19. - Continue Memantine 10 mg PO BID. (5) Hyperlipidemia: Continue Zocor 40 mg daily. (6) Hiatal hernia: Not on any treatment for this but family notes she has this diagnosis. (7) Anxiety disorder: Related to her dementia Continue standing dose of Xanax 3 times a day at 0800, 1400, and 2000; extra dose prn. Continue Effexor 75 mg PO TID. Supportive care as needed. (8) Myalgia: On gabapentin 600 mg PO QID Appears comfortable at this time (9) Osteoarthritis: Continue Gabapentin as prescribed. (10) DVT prophylaxis: Lovenox subQ q24hr. [facility]plan for dc tomorrow Subjective Pt denies abd pain, otherwise can't tell me anything. RN reports she is having BMs and eating, no problems Review of Systems Review of Systems: All systems reviewed & are unremarkable except as noted in HPI & below Physical Exam Constitutional: WD/WN, vitals as above Eyes: PERRL; no scleral abnormality ENMT: external ear and nose normal, oropharynx normal Neck: trachea midline, no thyromegaly Respiratory: normal respiratory effort, lungs clear to auscultation Cardiovascular: RRR, no murmur, no edema Gastrointestinal (Abdomen): normal bowel sounds, soft, nontender, no hepatosplenomegaly Musculoskeletal: Extremities: extremities normal to inspection; no cyanosis and no clubbing Skin: no rashes, warm and dry Neurologic: moves all extremities and awake; no focal motor deficits Psychiatric: Orientation: alert, oriented to person and cooperative; + not oriented to place and + not oriented to time Eye Contact: + fair eye contact Results & Data Vital Signs (Past 12 Hours) Vital Signs Temp Pulse Resp BP Pulse Ox 04/04/19 16:00 36.7 C 60 18 109/72 91 04/04/19 15:46 36.3 C L 70 16 92 04/04/19 07:00 36.3 C L 70 16 171/90 H 92 Laboratory Results 04/04/19 04/04/19 Range/Units 06:55 06:55 WBC 7.86 (4.8-10.8) K/uL RBC 4.86 (4.2-5.4) M/uL Hgb 14.3 (12.0-16.0) g/dL Hct 43.9 (37-47) % MCV 90.3 (80-100) fL MCH 29.4 (25-34) pg MCHC 32.6 (32-36) g/dL RDW Std Deviation 46.9 H (36.4-46.3) fL RDW Coeff of Bharati 14.2 (11.5-14.5) % Plt Count 186 (130-400) K/uL MPV 11.5 H (7.4-10.4) fL Immature Gran % (Auto) 0.3 % Neut % (Auto) 62.8 % Lymph % (Auto) 24.9 % [place] % (Auto) 10.2 % Eos % (Auto) 1.7 % Baso % (Auto) 0.1 % Immature Gran # (Auto) 0.02 (0.00-0.02) K/uL Neut # (Auto) 4.94 (1.4-6.5) K/uL Lymph # (Auto) 1.96 (1.2-3.4) K/uL [place] # (Auto) 0.80 H (0.11-0.59) K/uL Eos # (Auto) 0.13 (0-0.5) K/uL Baso # (Auto) 0.01 (0-0.2) K/uL Sodium 142 (136-145) mmol/L Potassium 3.7 (3.5-5.1) mmol/L Chloride 103 (98-107) mmol/L Carbon Dioxide 35 H (21-32) mmol/L Anion Gap 4.0 (3-11) BUN 15 (7-18) mg/dl Creatinine 0.62 (0.6-1.2) mg/dl Est Cr Clr Drug Dosing 81.8 ml/min Est GFR ( Amer) 102.2 Est GFR (Non-Af Amer) 88.2 BUN/Creatinine Ratio 23.5 H (10-20) Glucose 102 H (70-99) mg/dl Calcium 9.0 (8.5-10.1) mg/dl Total Bilirubin 0.3 (0.2-1) mg/dl AST 12 L (15-37) U/L ALT 12 (12-78) U/L Alkaline Phosphatase 87 (45-117) U/L Total Protein 6.4 (6.4-8.2) gm/dl Albumin 2.9 L (3.4-5.0) gm/dl Globulin 3.5 (2.5-4.0) gm/dl Albumin/Globulin Ratio 0.8 L (0.9-2) PG Care Time/CCT Total # of Minutes Spent Total Time Spent with Patient: Total time spent is greater than 50% in coordination of care (as documented) at patient's floor/unit and/or counseling patient:
[2019-04-04] MEDS ORDERED: MICONAZOLE NITRATE POWDER 43 GM EXT PRN (18:22)
[2019-04-04] MEDS: SIMVASTATIN 40 MG TAB PO SCH (20:51)
[2019-04-04] MEDS: CALCIUM 600MG + VIT D 400 IU TAB PO SCH (20:51)
[2019-04-04] MEDS: ASCORBIC ACID 500 MG TAB PO SCH (20:51)
[2019-04-05] MEDS: POLYETHYLENE (MIRALAX) 17 GM PACK PO SCH (07:37)
[2019-04-05] MEDS: OFLOXACIN 0.3% OP SOLN 5 ML BTL OP SCH ×2 (07:37→12:19)
[2019-04-05] MEDS: MEMANTINE HCL 10 MG TAB PO SCH (07:37)
[2019-04-05] MEDS: CEFDINIR 300 MG CAP PO SCH (07:37)
[2019-04-05] MEDS: FERROUS SULFATE 325 MG TAB PO SCH ×2 (07:38→12:19)
[2019-04-05] MEDS: LISINOPRIL 5 MG TAB PO SCH (07:38)
[2019-04-05] MEDS: VENLAFAXINE HCL 37.5 MG TAB PO SCH ×2 (07:38→12:19)
[2019-04-05] MEDS: VERAPAMIL HCL 240 MG TABCR PO SCH (07:39)
[2019-04-05] MEDS: GABAPENTIN 600 MG TAB PO SCH ×2 (07:39→12:19)
[2019-04-05] MEDS: ALPRAZolam 0.5 MG TABLET PO SCH ×2 (07:40→12:21)
--- NOTE | 2019-04-05 10:25 | Discharge Summary ---
Date of Service April 05, 2019 Admission HPI Per Admitting Provider This patient is a 73-year-old female with moderate to severe dementia, HTN, HL, hiatal hernia, OA, anxiety disorder, myalgias, and anemia who was brought in to the ER for 3 days of worsening generalized weakness and lower abdominal pains. She has a history of UTI in the past and her suspected such for the last few days. Due to her dementia, she is not able to answer many questions, but continued to complain of suprapubic abdominal pains. Her denied that she had any fevers/chills/sweats at home, her urine did not smell foul or have blood in it. She is also been constipated with no bowel movement for the past 3 to 4 days. She does adult diapers and is incontinent to stool and urine. Her also has not been able to get her to stand up without having her legs buckle underneath her for the last several days. Has been on the daughter at the bedside reports that they are very interested in having the patient permanently placed in a nursing facility. Her UA was grossly positive for infection. She was afebrile and had no signs of sepsis. In the ER, she was given IV Rocephin. Principal Diagnosis UTI, weakness Discharge Exam Constitutional WD/WN, vitals as above Eyes PERRL; no scleral abnormality ENMT external ear and nose normal, oropharynx normal Neck trachea midline, no thyromegaly Respiratory normal respiratory effort, lungs clear to auscultation Cardiovascular RRR, no murmur, no edema Gastrointestinal (Abdomen) normal bowel sounds, soft, nontender, no hepatosplenomegaly Musculoskeletal Extremities: extremities normal to inspection; no cyanosis and no clubbing Skin no rashes, warm and dry Neurologic moves all extremities and awake; no focal motor deficits Psychiatric Orientation: alert; + not oriented to place and + not oriented to time Eye Contact: + fair eye contact Discharge Data Allergies Allergy/AdvReac Type Severity Reaction Status Date / Time Penicillins Allergy Intermediate Verified 04/01/19 08:39 ampicillin Allergy Unknown RASH Verified 04/01/19 08:39 Consultations None Procedures Performed None Hospital Course (1) UTI (urinary tract infection): Presented with suprapubic abdominal pain and generalized weakness, grossly abnormal urinalysis and history of recurrent UTI. No evidence of sepsis on admission. Urine culture was positive for E. coli. Initially treated with Rocephin IV x 2 days then converted to Cefdinir 300 mg PO BID per UC sensitivities.-We will plan to finish out a 7-day course-today is day#4 overall (2) Weakness: Likely secondary to urinary tract infection Treatment for UTI as noted above PT/OT recommending SNF -- plan for transfer to [facility] today (3) HTN (hypertension): Blood pressures were elevated upon admission, now improved with adding on lisinopril Continue home Verapamil 240 mg PO daily. Added Lisinopril 5 mg PO daily and can titrate up to 10mg in one week if elevated BPs persist (4) Dementia: Moderate to severe upon questioning of family members, worsening over the last 3 to 4 years as per family members. She does not even know who her and daughter are at the bedside She does eat and take her pills and is fairly cooperative at home, however her has been her sole plastic duplicator. He is also been taking care of another daughter that has health issues. Family is looking for permanent placement in a nursing facility at this point -- transfer to [facility] today - Continue Memantine 10 mg PO BID. (5) Hyperlipidemia: Continue Zocor 40 mg daily. (6) Hiatal hernia: Not on any treatment for this but family notes she has this diagnosis. (7) Anxiety disorder: Related to her dementia Continue standing dose of Xanax 3 times a day at 0800, 1400, and 2000; extra dose prn. Continue Effexor 75 mg PO TID. Supportive care as needed. (8) Myalgia: On gabapentin 600 mg PO QID Appears comfortable at this time (9) Osteoarthritis: Continue Gabapentin as prescribed. (10) DVT prophylaxis: Lovenox subQ q24hr was provided Dispo: Discharge to [facility] today and [facility] for converting to senior care placement Total Time Total Time Spent Total Time Spent (In Minutes): >30 min Total Time Includes: Examination of the Patient, Discharge Planning and Medication Reconciliation Discharge Plan Discharge Items Patient Disposition: Transfer [facility] Fac Reason For Visit: UTI, WEAKNESS Discharge Diagnosis: UTI, weakness Condition: Fair Discharge Goals: Decrease discomfort, Diagnostic testing, Improve disease control and Therapeutic intervention Activity: As commented below Lifting: None Bathing: No limitations Exercise/Sports: Gradually increase as tolerated Non-emergency contact: Primary Care Provider Call non-emergency contact if: you have any medication questions, your symptoms worsen and your temperature is above 100.5 Follow-up/Referrals: Dontae Toure MD [Primary Care Provider] - Diet: Heart Healthy Addtl Provider Instructions: Continue oral antibiotics for UTI for several more days. Prescriptions: New lisinopril [Zestril] 5 mg Tablet 5 mg PO QAM Qty: 30 RF: 0 cefdinir 300 mg Capsule 300 mg PO BID Qty: 8 RF: 0 acetaminophen [Mapap (acetaminophen)] 325 mg Tablet 650 mg PO Q4H PRN (Reason: pain) Qty: 30 RF: 0 ofloxacin 0.3 % Drops 2 drp ophthalmic (eye) Q4HWA 4 Days Qty: 5 RF: 0 polyethylene glycol 3350 [Miralax] 17 gram Powder In Packet 17 g PO DAILY Qty: 30 RF: 0 alprazolam [Xanax] 0.5 mg Tablet 0.5 mg PO TID Qty: 10 RF: 0 Continued gabapentin 600 mg Tablet 600 mg PO QID RF: 0 venlafaxine 75 mg Tablet 75 mg PO TID RF: 0 simvastatin [Zocor] 40 mg Tablet 40 mg PO HS RF: 0 ascorbic acid (vitamin C) [Vitamin C] 500 mg Tablet 500 mg PO PM RF: 0 ferrous sulfate [iron] 325 mg (65 mg iron) Tablet 325 mg PO TID RF: 0 verapamil 240 mg Tablet Extended Release 240 mg PO QAM RF: 0 memantine 10 mg Tablet 10 mg PO BID RF: 0 calcium carbonate-vitamin D3 [Calcium 600 + D(3)] 600 mg(1,500mg) -400 unit Tablet 1 tab PO PM RF: 0 Cranberry 4200mg 4,200 mg PO BID RF: 0 Stand-Alone Forms: Call Back Authorization, [facility] Discharge Orders: Discharge Order (Routine); Ordered 04/05/19 Ordered By: Santa Luz Skilled Items Patient informed of condition?: Yes DNR: Yes Discharge Level of Care: Skilled Communicable Disease: No Discharge Prognosis: Improving Admission Data Admit Date/Time: 04/01/19 11:00 Attending Provider: Santa Luz Admit Provider: Santa Luz Primary Care Provider: Dontae Toure Service: Medical Other Interventions: Discharge Summary Assessment (RN) Last Done: 04/04/19 15:46 Pending Studies at Discharge: No
[2019-04-05] MEDS: ENOXAPARIN INJ 40 MG/0.4 ML SYR SQ SCH (12:20)
== END 2019-04-05 15:43 ==
LOC: 4E 07:19 → ED 07:19 → 4E 11:35